=== PATIENT | female | born 1945 | race Caucasian/White ===

== ENCOUNTER 2020-12-31 10:36 | Emergency (ER) | payer MEDICARE, SELFPAY ==
[2020-12-31 10:45] VITALS: BP 162/62; PULSE 68; RESP 18; O2SAT 99
[2020-12-31] MEDS: predniSONE 20 MG TAB 40 MG PO (12:22)
--- NOTE | 2020-12-31 16:16 | W.ED.GENAD ---
Discharge Plan Disposition Patient Disposition: HOME Condition: Stable Discharge Details Clinical Impression: Left buttock pain Primary Care Provider: Unknown,Unknown ED Provider: Maria C Paul Home Meds and New Rx's Prescriptions: New prednisone 20 mg tablet 40 mg PO DAILY Qty: 8 RF: 0 cyclobenzaprine 5 mg tablet 5 mg PO TID PRNQty: 15 RF: 0 Continued prednisone 5 mg Tablet 5 mg PO PRN PRNRF: 0 terbinafine HCl 250 mg Tablet 250 mg PO DAILY RF: 0 lisinopril-hydrochlorothiazide 20-25 mg Tablet 1 tab PO DAILY RF: 0 epinephrine 0.3 mg/0.3 mL Auto-Injector 0.3 mg IM PRN PRNRF: 0 metoprolol tartrate 25 mg Tablet 25 mg PO DAILY RF: 0 Neuriva De-Stress 100-200-10 mg Capsule 1 cap PO DAILY RF: 0 Discharge Instructions Instructions: Prednisone (By mouth), Cyclobenzaprine (By mouth), Sciatica (ED) Additional Instructions: Please return immediately to the emergency department if you develop any new or worsening symptoms, if your condition does not improve as expected, or if you become otherwise concerned. It is extremely important that you call soon as possible to make an appointment to be seen in follow-up for this visit by your primary care doctor. Please do not take your 5 mg prednisone prescribed by your primary care doctor while you are taking the 40 mg prednisone that was prescribed today. Your new prednisone prescription is for 5 days total, then you may resume the 5 mg prednisone as previously prescribed. Discharge Data Discharge Date/Time-TO BE ENTERED AT DEPARTURE: 12/31/20 12:42 Medical Decision Making Yumiko Peralta is a 75-year-old woman with history of hypertension presenting to the emergency department with left buttock pain that radiates into the left leg. On exam patient is very well and nontoxic-appearing. There is no tenderness to palpation of the lumbar back or of the left hip. Mild tenderness palpation of the left buttock that reproduces pain. Left lower extremity is neurovascularly intact. Concern for likely sciatica. Exam/history is not consistent with septic arthritis, acute bony pathology of the lumbar spine/pelvis/hip, DVT, cauda equina syndrome, other acute emergent medical process. Patient is currently taking 5 mg of prednisone at baseline. Plan for steroid burst, Flexeril, outpatient follow-up. Patient is instructed to stop taking her 5 mg prednisone for the next 4 days during steroid burst, and then restart as usual. Patient verbalizes understanding of the plan. I had a lengthy discussion with Patient regarding return to emergency department precautions, home care, and importance of outpatient follow-up. Pt verbalizes understanding of the plan and is amenable. Patient discharged to home with clear plan for outpatient follow-up. All questions were answered. Disposition decision was made weighing the risks and benefits of hospitalization versus outpatient treatment, the risk for further decompensation, and the patient's wishes. Medical Records Medical records reviewed: Yes I reviewed the patient's medical records. HPI General Mode of arrival: ambulatory. Date/Time Provider Initiated Documentation: 12/31/20 11:19. Limitations to Documentation: no limitations. Information obtained by: patient, RN notes reviewed and old records reviewed. HPI Narrative: Yumiko Peralta is a 75-year-old woman with a history of shoulder bursitis presenting to emergency department with left buttock pain. Patient reports that 2 days ago she noticed pain in her left buttock that radiates into her hip and the lateral aspect of her left leg. Patient reports that she has felt somewhat similar pain in her shoulder in the past and has known shoulder bursitis, but otherwise denies history of similar pain. She denies any trauma, injury, or known inciting event. Patient reports that she is able to walk and go about her usual activities. She denies back pain, any other new pain, weakness, numbness, urinary changes, constipation, fever, vomiting, cough, shortness of breath, rash. Has been eating and drinking as usual. Patient reports that she otherwise feels well and in her usual state of health. Related Data Home Medications Medication Instructions Recorded Confirmed Neuriva De-Stress 1 cap PO DAILY 12/31/20 12/31/20 cyclobenzaprine 5 mg PO TID PRN #15 tab 12/31/20 epinephrine 0.3 mg IM PRN PRN 12/31/20 12/31/20 lisinopril-hydrochlorothiazide 1 tab PO DAILY 12/31/20 12/31/20 metoprolol tartrate 25 mg PO DAILY 12/31/20 12/31/20 prednisone 5 mg PO PRN PRN 12/31/20 12/31/20 prednisone 40 mg PO DAILY #8 tab 12/31/20 terbinafine HCl 250 mg PO DAILY 12/31/20 12/31/20 Previous Rx's Medication Instructions Recorded cyclobenzaprine 5 mg PO TID PRN #15 tab 12/31/20 prednisone 40 mg PO DAILY #8 tab 12/31/20 Allergies Allergy/AdvReac Type Severity Reaction Status Date / Time hornet venom Allergy Severe Anaphylaxis Unverified 12/31/20 10:51 adhesive tape AdvReac Skin Rash Unverified 12/31/20 10:51 General Stated Complaint: Nk/Back Pain JOES JUAN: 3 Review of Systems Narrative: Constitutional: denies fevers Eyes: denies eye pain ENT: denies ear pain, dental pain, sore throat Cardiovascular: denies chest pain, edema Respiratory: denies SOB, cough GI: denies abdominal pain, vomiting, diarrhea : denies flank pain MSK: denies back pain, neck pain, denies arthralgias, reports left buttock pain radiating into the lateral left leg Skin: denies rash Neuro: denies headaches, numbness, weakness [facility] Social History Smoking/Tobacco Use Status: Current every day Tobacco Type: cigarettes Smoking risk assessment performed?: Yes Alcohol Intake: current Alcohol Intake frequency: 0-2 drinks per day Alcohol type: wine Drug use: Never Substance use type: does not use Do you feel safe at home: Yes Do you feel safe in your relationship?: Yes Exam Narrative Exam Narrative: Constitutional: well and [id number], pleasant, conversing normally HENT: head atraumatic/normocephalic/normal inspection, mucous membranes moist Eyes: conjunctiva normal, sclera normal, pupils 3mm b/l Neck: no stridor, normal ROM, trachea midline Chest: normal inspection Resp: normal work of breathing, speaking in full sentences Cardio: normal rate, normal rhythm GI: abdomen soft, non-tender, non-distended Back: normal inspection, no rash, no lumbar spinal or paraspinal tenderness to palpation Skin: warm, dry, normal color, no rash Neuro: alert, not altered, grossly non-focal, normal tone, normal sensation left lower extremity, normal gait Ext: left hip with full painless range of motion, left buttock with mild tenderness to palpation that reproduces pain without induration/mass/edema/overlying skin changes, left hip is nontender to anterior and lateral palpation, there is no tenderness to palpation of the left thigh, full painless range of motion of the left knee, no posterior calf tenderness to palpation, no lower extremity edema, DP pulses intact and symmetric Psych: normal mood, normal affect, normal behavior Course Vital Signs Vital signs: Vital Signs Pulse 68 12/31/20 10:45 Respiratory Rate 18 12/31/20 10:45 Blood Pressure 162/62 H 12/31/20 10:45 Pulse Oximetry 99 12/31/20 10:45 Pulse 68 12/31/20 10:45 Respiratory Rate 18 12/31/20 10:45 Respiratory Effort Non-Labored 12/31/20 10:56 Blood Pressure 162/62 H 12/31/20 10:45 Blood Pressure Position Standing 12/31/20 10:45 Pulse Oximetry 99 12/31/20 10:45 Oxygen Delivery Method Room Air 12/31/20 10:45 Oxygen Flow Rate 0 12/31/20 10:45 Pain Level 1 12/31/20 10:45
== END 2020-12-31 12:42 | disposition home or self-care (01) ==
PROVIDERS: Emergency Provider Student in an Organized Health Care Education/Training Program
DX: M79.18 Myalgia, other site
CPT/HCPCS: 99283; J7512

== ENCOUNTER 2022-03-30 13:39 | Emergency (ER) | payer MEDICARE, SELFPAY ==
--- NOTE | 2022-03-30 13:45 | RT.EKG_ITS ---
APPROVED REPORT Exam: Resting ECG Reason for Exam: chest pain Patient Location: E HR:77 bpm ECG Measurements Heart Rate 77 AXIS TN 192 P 70 QRSd 88 QRS 34 QT 379 T 43 QTc 428 Conclusion Sinus rhythm...normal P axis, V-rate 60- 99. Sinus. Normal axis. No STEMI. I have reviewed and interpreted ECG and agree with software generated interpretation.
[2022-03-30 13:46] VITALS: BP 155/65; PULSE 78; RESP 18; TEMP 36.8; O2SAT 97
--- NOTE | 2022-03-30 14:07 | ED.GENADUL_ITS ---
Discharge Plan Disposition Patient Disposition: HOME Condition: Stable Discharge Details Clinical Impression: Chest pain Primary Care Provider: Babar Mclaughlin ED Provider: Dylan Arango Home Meds and New Rx's Prescriptions: New omeprazole 40 mg capsule,delayed release(DR/EC) 40 mg PO DAILY Qty: 30 0RF Continued prednisone 5 mg Tablet 5 mg PO PRN PRN terbinafine HCl 250 mg Tablet 250 mg PO DAILY lisinopril-hydrochlorothiazide 20-25 mg Tablet 1 tab PO DAILY epinephrine 0.3 mg/0.3 mL Auto-Injector 0.3 mg IM PRN PRN metoprolol tartrate 25 mg Tablet 25 mg PO DAILY Neuriva De-Stress 100-200-10 mg Capsule 1 cap PO DAILY escitalopram oxalate [Lexapro] 10 mg tablet 1 tab PO DAILY AM Label Comments: TAKE ONE TABLET BY MOUTH EVERY DAY aspirin 325 mg Capsule 325 mg PO DAILY PRN PRN Discharge Instructions Instructions: Chest Pain (ED) Additional Instructions: We are arranging an outpatient stress test and intracardiac echo. Please call the numbers in the provided forms for scheduling of these tests. While waiting for these test if you have any new or significant worsening of symptoms return immediately to the emergency department for reassessment. You have been prescribed omeprazole to see if this also helps with your symptoms given that the GI cocktail did relieve your discomfort. It will also be important to follow-up with your primary care provider for reassessment. Referrals: Babar Mclaughlin [Primary Care Provider] - 1 week (Please see your primary care provider within the next week for arrangement of follow-up and reassessment) Discharge Data Discharge Date/Time-TO BE ENTERED AT DEPARTURE: 03/30/22 19:27 Medical Decision Making <ELOISA Tovar - Last Filed: 03/30/22 16:24> This is a 77-year-old female with a past medical history of aortic valve replacement, hypertension, diet-controlled diabetes, presenting to the ER for 4- day history of chest tightness, back pain, constant dull headache, fatigue, occasional discomfort in the left side of her neck, and shortness of breath. Clinically she appears well, nontoxic. Plan is to provide a full dose aspirin and initiate a cardiac work-up including a D-dimer, chest x-ray, and a COVID swab. Initial laboratory values reveal nonspecific leukocytosis of 14.10, D-dimer normal at 457, will not pursue emergent CTA. Electrolytes unremarkable, renal function reveals a creatinine of 0.9 with a GFR greater than 60. Troponin less than 50. BNP pending. Urinalysis unremarkable. Alcohol less than 3. Flu, COVID, RSV negative. Patient does tell me that she typically has a slightly high white count at baseline Patient agreeable for delta troponin. Given she continues to have what she describes as chest tightness I will provide nitro. A single sublingual nitro was provided, she reports no change of chest tightness, increased headache, and her blood pressure went into the 80s over 50s. We will hold the nitro. Patient provided with 500 cc fluid bolus as well as 1 g Tylenol. Repeat blood pressure of 120/44. Signout to my colleague ARCADIO Arango performed in exam room for in the setting of the patient and her daughter. Awaiting delta troponin and decision either for admission versus discharge home with close outpatient follow-up. At this time patient is leaning toward discharge home given her is at home and recently discharged from [facility]. This documentation was generated using [employer] dictation system, please disregard any oddities of phrase or misspellings. Medical Records Medical records reviewed: Yes I reviewed the patient's medical records. Imaging Data Radiologic Study: Attestation: I personally reviewed and interpreted this imaging study as follows: Imaging: X-Ray Radiologist's impression: PROCEDURE INFORMATION: Exam: XR Chest Exam date and time: 03/30/2022 2:35 PM Age: 77 years old Clinical indication: Other: Tightness; Prior surgery TECHNIQUE: Imaging protocol: Radiologic exam of the chest. Views: 1 view. COMPARISON: No relevant images were readily available for comparison purposes. FINDINGS: Lungs: Clear lungs. Pleural spaces: No sizable pleural effusion. No pneumothorax. Heart/Mediastinum: Cardiomediastinal silhouette is within normal limits. Bones/joints: No acute displaced fracture or dislocation. Other findings: surgical changes project over the chest. IMPRESSION: No acute cardiopulmonary findings. Lab Data Lab results reviewed: Yes I reviewed the patient's lab results. Labs: Laboratory Tests Range/Units 03/30/22 03/30/22 03/30/22 14:07 14:07 14:30 WBC (4.4-10.8) 10^3/uL RBC (3.93-5.22) 10^6/uL Hgb (11.2-15.7) g/dL Hct (36.0-46.0) % MCV (80-95) fL MCH (27.0-33.0) pg MCHC (32.0-36.0) % RDW (11.7-14.6) % Plt Count (130-400) 10^3/uL MPV (8.0-11.0) fL Immature Gran % Neutrophils % Lymphocytes % Monocytes % Eosinophils % Basophils % Nucleated RBC % (0.0-0.3) % Absolute Neutrophils (1.2-6.7) 10^3/uL Absolute Lymphocytes (1.2-3.4) 10^3/uL Absolute Monocytes (0.1-0.8) 10^3/uL Absolute Eosinophils (0.0-0.7) 10^3/uL Absolute Basophils (0.0-0.2) 10^3/uL PT (9.3-11.0) sec INR (0.9-1.1) APTT (21.0-27.5) sec D-Dimer (<500) ng/mlFEU Sodium (136-145) mmol/L 138 Potassium (3.5-5.1) mmol/L 3.8 Chloride (98-107) mmol/L 102 Carbon Dioxide (21.0-32.0) mmol/L 27.4 Anion Gap (3-11) mmol/L 8.6 BUN (7-18) mg/dL 29 H Creatinine (0.55-1.02) mg/dL 0.9 Estimated GFR/1.73 m2 (mL/min/1.73m2) >= 60.00 Glucose (74-106) mg/dL 120 H Calcium (8.5-10.1) mg/dL 9.6 Magnesium (1.8-2.4) mg/dL 1.7 L Total Bilirubin (0.2-1.0) mg/dL 0.4 AST (15-37) U/L 36 ALT (14-59) U/L 55 Alkaline Phosphatase (46-116) U/L 67 Troponin I (<or=60) ng/L < 50 NT-Pro-B Natriuret Pep (<300) pg/mL Total Protein (6.4-8.2) g/dL 7.7 Albumin (3.4-5.0) g/dL 4.1 Urine Color (Yellow) Yellow Urine Clarity (Clear) Clear Urine pH (5-8) 5.5 Ur Specific Yarnell (1.005-1.025) 1.010 Urine Protein (Negative) mg/dL Negative Urine Ketones (Negative) mg/dL Negative Urine Blood (Negative) Negative Urine Nitrite (Negative) Negative Urine Bilirubin (Negative) Negative Urine Urobilinogen (Up TO 0.2) EU/dL 0.2 Ur Leukocyte Esterase (Negative) Negative Urine Glucose (Negative) mg/dL Negative Ethyl Alcohol (<10) mg/dL < 3.0 COVID-19 Source Nasopharynx SARS-CoV-2 (PCR) (Negative) Negative Influenza Type A (PCR) (Negative) Negative Influenza Type B (PCR) (Negative) Negative RSV (PCR) (Negative) Negative Range/Units 03/30/22 03/30/22 03/30/22 14:30 14:30 14:30 WBC (4.4-10.8) 10^3/uL 14.10 H RBC (3.93-5.22) 10^6/uL 4.57 Hgb (11.2-15.7) g/dL 13.5 Hct (36.0-46.0) % 41.2 MCV (80-95) fL 90 MCH (27.0-33.0) pg 29.5 MCHC (32.0-36.0) % 32.8 RDW (11.7-14.6) % 12.7 Plt Count (130-400) 10^3/uL 207 MPV (8.0-11.0) fL 10.9 Immature Gran % 0.3 Neutrophils % 75.0 Lymphocytes % 18.0 Monocytes % 5.2 Eosinophils % 1.1 Basophils % 0.4 Nucleated RBC % (0.0-0.3) % 0.0 Absolute Neutrophils (1.2-6.7) 10^3/uL 10.58 H Absolute Lymphocytes (1.2-3.4) 10^3/uL 2.54 Absolute Monocytes (0.1-0.8) 10^3/uL 0.73 Absolute Eosinophils (0.0-0.7) 10^3/uL 0.16 Absolute Basophils (0.0-0.2) 10^3/uL 0.06 PT (9.3-11.0) sec 10.4 INR (0.9-1.1) 1.0 APTT (21.0-27.5) sec 23.3 D-Dimer (<500) ng/mlFEU 457 Sodium (136-145) mmol/L Potassium (3.5-5.1) mmol/L Chloride (98-107) mmol/L Carbon Dioxide (21.0-32.0) mmol/L Anion Gap (3-11) mmol/L BUN (7-18) mg/dL Creatinine (0.55-1.02) mg/dL Estimated GFR/1.73 m2 (mL/min/1.73m2) Glucose (74-106) mg/dL Calcium (8.5-10.1) mg/dL Magnesium (1.8-2.4) mg/dL Total Bilirubin (0.2-1.0) mg/dL AST (15-37) U/L ALT (14-59) U/L Alkaline Phosphatase (46-116) U/L Troponin I (<or=60) ng/L NT-Pro-B Natriuret Pep (<300) pg/mL 173 Total Protein (6.4-8.2) g/dL Albumin (3.4-5.0) g/dL Urine Color (Yellow) Urine Clarity (Clear) Urine pH (5-8) Ur Specific Yarnell (1.005-1.025) Urine Protein (Negative) mg/dL Urine Ketones (Negative) mg/dL Urine Blood (Negative) Urine Nitrite (Negative) Urine Bilirubin (Negative) Urine Urobilinogen (Up TO 0.2) EU/dL Ur Leukocyte Esterase (Negative) Urine Glucose (Negative) mg/dL Ethyl Alcohol (<10) mg/dL COVID-19 Source SARS-CoV-2 (PCR) (Negative) Influenza Type A (PCR) (Negative) Influenza Type B (PCR) (Negative) RSV (PCR) (Negative) Range/Units 03/30/22 14:34 WBC (4.4-10.8) 10^3/uL RBC (3.93-5.22) 10^6/uL Hgb (11.2-15.7) g/dL Hct (36.0-46.0) % MCV (80-95) fL MCH (27.0-33.0) pg MCHC (32.0-36.0) % RDW (11.7-14.6) % Plt Count (130-400) 10^3/uL MPV (8.0-11.0) fL Immature Gran % Neutrophils % Lymphocytes % Monocytes % Eosinophils % Basophils % Nucleated RBC % (0.0-0.3) % Absolute Neutrophils (1.2-6.7) 10^3/uL Absolute Lymphocytes (1.2-3.4) 10^3/uL Absolute Monocytes (0.1-0.8) 10^3/uL Absolute Eosinophils (0.0-0.7) 10^3/uL Absolute Basophils (0.0-0.2) 10^3/uL PT (9.3-11.0) sec INR (0.9-1.1) APTT (21.0-27.5) sec D-Dimer (<500) ng/mlFEU Sodium (136-145) mmol/L Potassium (3.5-5.1) mmol/L Chloride (98-107) mmol/L Carbon Dioxide (21.0-32.0) mmol/L Anion Gap (3-11) mmol/L BUN (7-18) mg/dL Creatinine (0.55-1.02) mg/dL Estimated GFR/1.73 m2 (mL/min/1.73m2) Glucose (74-106) mg/dL Calcium (8.5-10.1) mg/dL Magnesium (1.8-2.4) mg/dL Total Bilirubin (0.2-1.0) mg/dL AST (15-37) U/L ALT (14-59) U/L Alkaline Phosphatase (46-116) U/L Troponin I (<or=60) ng/L NT-Pro-B Natriuret Pep (<300) pg/mL Total Protein (6.4-8.2) g/dL Albumin (3.4-5.0) g/dL Urine Color (Yellow) Urine Clarity (Clear) Urine pH (5-8) Ur Specific Yarnell (1.005-1.025) Urine Protein (Negative) mg/dL Urine Ketones (Negative) mg/dL Urine Blood (Negative) Urine Nitrite (Negative) Urine Bilirubin (Negative) Urine Urobilinogen (Up TO 0.2) EU/dL Ur Leukocyte Esterase (Negative) Urine Glucose (Negative) mg/dL Ethyl Alcohol (<10) mg/dL COVID-19 Source Cancelled SARS-CoV-2 (PCR) (Negative) Cancelled Influenza Type A (PCR) (Negative) Cancelled Influenza Type B (PCR) (Negative) Cancelled RSV (PCR) (Negative) Cancelled ECG Data Attestation: I personally reviewed and interpreted this ECG (s) as follows: Interpretation: Please see official report by Dr. Young. Sinus rhythm, ventricular rate of 77, no STEMI <Dylan Arango NP - Last Filed: 03/30/22 21:50> This is a 77-year-old female with a past medical history of aortic valve replacement, hypertension, diet-controlled diabetes, presenting to the ER for 4- day history of chest tightness, back pain, constant dull headache, fatigue, occasional discomfort in the left side of her neck, and shortness of breath. Clinically she appears well, nontoxic. Plan is to provide a full dose aspirin and initiate a cardiac work-up including a D-dimer, chest x-ray, and a COVID swab. Initial laboratory values reveal nonspecific leukocytosis of 14.10, D-dimer normal at 457, will not pursue emergent CTA. Electrolytes unremarkable, renal function reveals a creatinine of 0.9 with a GFR greater than 60. Troponin less than 50. BNP pending. Urinalysis unremarkable. Alcohol less than 3. Flu, COVID, RSV negative. Patient does tell me that she typically has a slightly high white count at baseline Patient agreeable for delta troponin. Given she continues to have what she describes as chest tightness I will provide nitro. A single sublingual nitro was provided, she reports no change of chest tightness, increased headache, and her blood pressure went into the 80s over 50s. We will hold the nitro. Patient provided with 500 cc fluid bolus as well as 1 g Tylenol. Repeat blood pressure of 120/44. Signout to my colleague ARCADIO Arango performed in exam room for in the setting of the patient and her daughter. Awaiting delta troponin and decision either for admission versus discharge home with close outpatient follow-up. At this time patient is leaning toward discharge home given her is at home and recently discharged from [facility]. This documentation was generated using [employer] system, please disregard any oddities of phrase or misspellings. Please see initial note from Jose AMIN in regards to HPI, review of systems, medical history, and initial work-up. Patient was stable at time of signout and pending second troponin. Second troponin was negative and patient was reassessed. At time of reassessment patient reports improving headache, no radiation of pain, but continued chest tightness. Patient does have a heart score of 4. After discussion of risk versus benefit of continued outpatient evaluation versus inpatient observation with attempt to obtain stress test and echo patient and daughter stated request of observation admission if bed is available at our facility otherwise stable for outpatient continued work-up. We will contact hospitalist for discussion of case. Contacted hospitalist and discussed case. He stated he would come down and evaluate patient but recommended GI cocktail pending in person consultation. Dr. Bar came down and evaluated patient and at that time the GI cocktail improved patient's symptoms. I am still concerned due to patient's history but given that she is now pain-free and having improvement of symptoms with negative cardiac work-up patient is requesting discharge with outpatient stress test and further evaluation. Given patient's high heart score I will order this from the emergency department standpoint as I do feel that getting this performed sooner than later is important. Will prescribe omeprazole to see if this helps with patient's symptoms. After discussion of diagnosis and plan of care patient has no further needs, questions, or concerns and states clear understanding to return to the emergency department for any worsening symptoms. This documentation was generated using [employer] system, please disregard any oddities of phrase or misspellings. HPI <ELOISA Tovar - Last Filed: 03/30/22 16:24> General Mode of arrival: ambulatory . Date/Time Provider Initiated Documentation: 03/30/22 13:53 . Limitations to Documentation: no limitations . Information obtained by: patient . HPI Narrative: This is a 77-year-old female, past medical history of hypertension, diet- controlled diabetes, aortic valve replacement in 2017, presenting to the ER reporting 4-day history of chest tightness, mild shortness of breath, back pain which is upper and mid in nature, occasionally left neck pain, fatigue, and a dull constant headache. She states that her was recently admitted to [facility] for an ischemic leg and while he is doing well this is certainly increased her overall stress. She denies recent illness or trauma, fever, chills, visual changes, cough, abdominal pain, nausea, vomiting, focal weakness, numbness, tingling, weakness, pain or swelling in her extremities, change of bowel or bladder function. She did take a full dose aspirin yesterday but no aspirin today. Patient states that she has not had a stress test or echocardiogram since her open heart surgery in 2017. She is vaccinated against COVID. Related Data Home Medications Medication Instructions Recorded Confirmed coffee 100 mg theanine 200 mg 1 cap PO DAILY 12/31/20 03/30/22 superoxide dismutase 10 mg capsule (Neuriva De-Stress) epinephrine 0.3 mg/0.3 mL 0.3 mg IM PRN PRN 12/31/20 03/30/22 injection, auto-injector lisinopril 20 1 tab PO DAILY 12/31/20 03/30/22 mg-hydrochlorothiazide 25 mg tablet metoprolol tartrate 25 mg tablet 25 mg PO DAILY 12/31/20 12/31/20 prednisone 5 mg tablet 5 mg PO PRN PRN 12/31/20 03/30/22 terbinafine HCl 250 mg tablet 250 mg PO DAILY 12/31/20 12/31/20 aspirin 325 mg capsule 325 mg PO DAILY PRN PRN 03/30/22 03/30/22 escitalopram oxalate 10 mg tablet 1 tab PO DAILY AM 03/30/22 03/30/22 (Lexapro) omeprazole 40 mg capsule,delayed 40 mg PO DAILY #30 caps 03/30/22 release Previous Rx's Medication Instructions Recorded omeprazole 40 mg capsule,delayed 40 mg PO DAILY #30 caps 03/30/22 release Allergies Allergy/AdvReac Type Severity Reaction Status Date / Time hornet venom Allergy Severe Anaphylaxis Unverified 03/30/22 13:52 adhesive tape AdvReac Skin Rash Unverified 03/30/22 13:52 General Stated Complaint: Chest Pain JOSE JUAN: 2 Review of Systems <ELOISA Tovar - Last Filed: 03/30/22 16:24> Constitutional Constitutional: Denies chills, Reports fatigue, Denies fever(s), Reports headache(s) and Reports weakness (Generalized) Eyes Eyes: Denies change in vision ENT Ears, Nose, Mouth, and Throat: Reports headache(s) and Reports neck pain Cardiovascular Cardiovascular: Reports chest pain (Tightness) and Reports dyspnea Respiratory Respiratory: Denies cough and Reports dyspnea Gastrointestinal Gastrointestinal: Denies abdominal pain, Denies nausea and Denies vomiting Genitourinary Genitourinary: Denies dysuria Musculoskeletal Musculoskeletal: Reports back pain and Reports neck pain Integumentary/Breasts Skin/Breast: Denies rash Neurologic Neurologic: Reports headache(s) and Reports weakness (Generalized) Endocrine Endocrine: Reports fatigue Hematologic/Lymphatic Hematologic/Lymphatic: Denies easy bleeding and Denies easy bruising PFSH <ELOISA Tovar - Last Filed: 03/30/22 16:24> All Active Problems (Updated 03/30/22 @ 18:53 by Dylan Arango NP) Left buttock pain (Acute) Chest pain (Acute) Social History Smoking/Tobacco Use Status: Current every day Tobacco Type: cigarettes Smoking risk assessment performed?: Yes Alcohol Intake: current Alcohol Intake frequency: 0-2 drinks per day Alcohol type: wine Drug use: Never Substance use type: does not use Do you feel safe at home: Yes Do you feel safe in your relationship?: Yes Exam <ELOISA Tovar - Last Filed: 03/30/22 16:24> Const General: cooperative, healthy appearing, comfortable and no acute distress Orientation: alert, awake and oriented x3 HENMT Head: normal to inspection, normocephalic and atraumatic Face and sinus: normal facial exam Mouth: moist mucous membranes Eyes General: appearance normal, both eyes and all related structures Conjunctivae: conjunctivae normal Neck Neck: normal visual inspection, full ROM, no meningeal signs, trachea midline, supple and nontender Resp Effort & Inspection: normal respiratory effort and able to speak in complete sentences Auscultation: clear to auscultation bilaterally Cardio Rate: regular rate Rhythm: regular rhythm GI Palpation: soft and nontender Back/Spine/Pelvis Back: No back tenderness Skin General skin exam: no rashes or lesions noted Neuro General: patient alert, patient awake, moves all extremities and no focal motor deficits Cognition: normal cognition Speech: speech normal Gait: normal gait Motor: muscle tone normal throughout Sensory Exam: no sensory deficits noted Extrem General: normal to inspection, full ROM, capillary refill normal, no pedal edema and no calf tenderness Psych Appearance: grossly normal Mental Status: mental status grossly normal Course <ELOISA Tovar - Last Filed: 03/30/22 16:24> Vital Signs Vital signs: Vital Signs Temperature 36.8 C 03/30/22 13:46 Pulse 78 03/30/22 13:46 Respiratory Rate 18 03/30/22 13:46 Blood Pressure 155/65 H 03/30/22 13:46 Pulse Oximetry 97 03/30/22 13:46 Temperature 36.8 C 03/30/22 13:46 Temperature Source Temporal Artery Scan 03/30/22 13:46 Pulse 78 03/30/22 13:46 Respiratory Rate 18 03/30/22 13:46 Blood Pressure 155/65 H 03/30/22 13:46 Blood Pressure Position Sitting 03/30/22 13:46 Pulse Oximetry 97 03/30/22 13:46 Oxygen Delivery Method Room Air 03/30/22 13:46 Oxygen Flow Rate 0 03/30/22 13:46 Sign Out <ELOISA Tovar - Last Filed: 03/30/22 16:24> Sign Out Data: Sign Out Comment: Chest tightness, back pain, headache, fatigue, left neck pain x4 days. Work-up thus far reveals mild nonspecific leukocytosis otherwise unremarkable. Plan for delta troponin and patient and family are currently discussing admission versus discharge home with close outpatient Last updated by Jose Marte PA at 03/30/22 16:25
[2022-03-30 14:22] LABS: Bilirubin Negative (Negative); Blood Negative (Negative); Clarity Clear (Clear); Glucose Negative (Negative); Ketones Negative (Negative); Leukocyte Esterase Negative (Negative); Nitrite Negative (Negative); Urobilinogen 0.2 EU/dL (Up TO 0.2); pH 5.5 (5-8)
--- NOTE | 2022-03-30 14:30 | DI.RAD_ITS ---
Exam(s) XR PORTABLE CHEST AP EXAM: XR PORTABLE CHEST AP CLINICAL HISTORY: tightness. TECHNIQUE: 2D digital imaging was performed. COMPARISON: No exams were available for comparison FINDINGS: Single AP portable view. Sternotomy wires and prosthetic aortic valve. Heart size is upper normal. The mediastinum is not widened. Lungs are clear. No infiltrates nor obvious pleural effusions. IMPRESSION: No acute pulmonary findings on this single AP portable view of the chest. Sternotomy wires and prosthetic aortic valve. No pulmonary edema. DATA REPOSITORY: RADIATION DOSE DELIVERED: All CT scans at this facility use at least one of these dose optimization techniques: automated exposure control; mA and/or kV adjustment per patient size (includes targeted e xams where dose is matched to clinical indication); or iterative reconstruction.
[2022-03-30 14:33] LABS: Abs Immature Grans 0.04 10^3/uL (0.0-0.06); Absolute Basophil Count 0.06 10^3/uL (0.0-0.2); Absolute Lymphocyte Count 2.54 10^3/uL (1.2-3.4); Basophils % 0.4; Eosinophils % 1.1; HCT 41.2 % (36.0-46.0); HGB 13.5 g/dL (11.2-15.7); Immature Grans % 0.3; MCH 29.5 pg (27.0-33.0); MCHC 32.8 % (32.0-36.0); MCV 90 fL (80-95); MPV 10.9 fL (8.0-11.0); Monocytes % 5.2; Platelet Count 207 10^3/uL (130-400); RBC 4.57 10^6/uL (3.93-5.22); RDW 12.7 % (11.7-14.6); RDW-SD 42.1 fL
[2022-03-30 14:41] LABS: Absolute Eosinophil Count 0.16 10^3/uL (0.0-0.7); Absolute Monocyte Count 0.73 10^3/uL (0.1-0.8); Absolute Neutrophil Count 10.58 10^3/uL (1.2-6.7)
[2022-03-30 14:48] LABS: PTT Activated 23.3 sec (21.0-27.5); Prothrombin Time 10.4 sec (9.3-11.0)
[2022-03-30 14:52] LABS: ALT 55 U/L (14-59); AST 36 U/L (15-37); Albumin 4.1 g/dL (3.4-5.0); Alkaline Phosphatase 67 U/L (46-116); Anion Gap 8.6 mmol/L (3-11); BUN 29 mg/dL (7-18); Bilirubin, Total 0.4 mg/dL (0.2-1.0); CO2 27.4 mmol/L (21.0-32.0); CREATININE 0.9 mg/dL (0.55-1.02); Calcium 9.6 mg/dL (8.5-10.1); Chloride 102 mmol/L (98-107); Glucose 120 mg/dL (74-106); Magnesium 1.7 mg/dL (1.8-2.4); Potassium 3.8 mmol/L (3.5-5.1); Sodium 138 mmol/L (136-145); Total Protein 7.7 g/dL (6.4-8.2); Troponin I < 50 ng/L (<or=60)
[2022-03-30] MEDS: Aspirin 81 MG CHEW 324 MG CH (14:54)
[2022-03-30 15:05] LABS: COVID-19 PCR Negative (Negative); Influenza A PCR Negative (Negative); Influenza B PCR Negative (Negative); RSV PCR Negative (Negative)
[2022-03-30 15:10] LABS: ETHANOL BLOOD < 3.0 mg/dL (<10)
--- NOTE | 2022-03-30 15:14 | DI.VRAD_ITS ---
PROCEDURE INFORMATION: Exam: XR Chest Exam date and time: 03/30/2022 2:35 PM Age: 77 years old Clinical indication: Other: Tightness; Prior surgery TECHNIQUE: Imaging protocol: Radiologic exam of the chest. Views: 1 view. COMPARISON: No relevant images were readily available for comparison purposes. FINDINGS: Lungs: Clear lungs. Pleural spaces: No sizable pleural effusion. No pneumothorax. Heart/Mediastinum: Cardiomediastinal silhouette is within normal limits. Bones/joints: No acute displaced fracture or dislocation. Other findings: surgical changes project over the chest. IMPRESSION: No acute cardiopulmonary findings. Dictated and Authenticated by: Sher Campoverde MD. Ordering:JASWINDER Garcia MD
[2022-03-30 15:22] LABS: Source Nasopharynx
[2022-03-30 15:28] LABS: D-Dimer 457 ng/mlFEU (<500)
[2022-03-30] MEDS: Normal Saline 500 ML IV (15:30)
[2022-03-30 15:32] VITALS: BP 115/60; PULSE 72; RESP 16; O2SAT 96
[2022-03-30 15:37] VITALS: BP 80/50; PULSE 75
[2022-03-30 15:39] VITALS: BP 86/45; PULSE 74; O2SAT 96
[2022-03-30 15:58] LABS: NT-proBNP 173 pg/mL (<300)
[2022-03-30] MEDS: Acetaminophen 500 MG TAB (16:01)
[2022-03-30 16:04] VITALS: BP 120/44; PULSE 68; RESP 15; O2SAT 96
[2022-03-30 17:32] LABS: Troponin I < 50 ng/L (<or=60)
--- NOTE | 2022-03-30 18:47 | W.MEDCONSULT ---
Date of service: 03/30/22 Time of Service: 18:47 Assessment and Plan Assessment and plan (1) Chest pain: Status: Acute Assessment and plan: CP. Very low likelihood of coronary insufficiency given duration, negative w/u, negative response to NTG and positive response to AAs. I think this is likely GI in origin, or stress related. I do not feel that admission is indicated though I think it not unreasonable to arrange for outpatient stress test out of abundance of caution. In meantime would advise trial PPI. History of Present Illness History of Present Illness Chief Complaint: CP Narrative: 77 female with h/o HTN, s/p bovine AVR 2017 -- here with 10-14 days of continuous chest tightness, with occasional involvement of left side of neck,or left shoulder or back. No SOB, nausea or diaphoresis. No relation to exertion or position. Here in ER initial work up of note for normal EKG (with CP), negative trop x 2, negative CXR, white count of 14 (states she always has a mild leukocytosis, though I have no priors here). No response to NTG (except a DOVE). I was asked to evaluate for possible admission. A request for GI cocktail was made and this was being given upon my arrival. Patient wonders whether her symptoms could be stress related (actually daughter broaches the subject). Patient allows that she has indeed been under a good deal of stress due to 's recent illness. At this point in interview patient states that the chest tightness has abated. Review of Systems Narrative: per HPI PFSH All Active Problems (Updated 03/30/22 @ 18:53 by Dylan Arango NP) Left buttock pain (Acute) Chest pain (Acute) Social History Smoking/Tobacco Use Status: Current every day Tobacco Type: cigarettes Smoking risk assessment performed?: Yes Alcohol Intake: current Alcohol Intake frequency: 0-2 drinks per day Alcohol type: wine Drug use: Never Substance use type: does not use Do you feel safe at home: Yes Do you feel safe in your relationship?: Yes Exam Narrative Exam Narrative: 120/44, 68, 36.8, 15, 96% RA. HEENT atraumatic; neck supple w/o JVD; lungs clear; heart RRR w/o MRG; abdomen soft and NT; extremities w/o edema, pulses 2+/=; neuro Ox3, lucid, moves all 4s Results Last Vital Signs Temp 36.8 C 03/30/22 13:46 Pulse 68 03/30/22 16:04 Resp 15 03/30/22 16:04 BP 120/44 L 03/30/22 16:04 Pulse Ox 96 03/30/22 16:04 Labs Result diagrams: 03/30/22 14:30 03/30/22 14:30 Labs: Laboratory Results - last 24 hr 03/30/22 03/30/22 03/30/22 14:07 14:07 14:30 WBC RBC Hgb Hct MCV MCH MCHC RDW Plt Count MPV Immature Gran % Neutrophils % Lymphocytes % Monocytes % Eosinophils % Basophils % Nucleated RBC % Absolute Neutrophils Absolute Lymphocytes Absolute Monocytes Absolute Eosinophils Absolute Basophils PT INR APTT D-Dimer Sodium 138 Potassium 3.8 Chloride 102 Carbon Dioxide 27.4 Anion Gap 8.6 BUN 29 H Creatinine 0.9 Estimated GFR/1.73 m2 >= 60.00 Glucose 120 H Calcium 9.6 Magnesium 1.7 L Total Bilirubin 0.4 AST 36 ALT 55 Alkaline Phosphatase 67 Troponin I < 50 NT-Pro-B Natriuret Pep Total Protein 7.7 Albumin 4.1 Urine Color Yellow Urine Clarity Clear Urine pH 5.5 Ur Specific [place] 1.010 Urine Protein Negative Urine Ketones Negative Urine Blood Negative Urine Nitrite Negative Urine Bilirubin Negative Urine Urobilinogen 0.2 Ur Leukocyte Esterase Negative Urine Glucose Negative Ethyl Alcohol < 3.0 COVID-19 Source Nasopharynx SARS-CoV-2 (PCR) Negative Influenza Type A (PCR) Negative Influenza Type B (PCR) Negative RSV (PCR) Negative 03/30/22 03/30/22 03/30/22 14:30 14:30 14:30 WBC 14.10 H RBC 4.57 Hgb 13.5 Hct 41.2 MCV 90 MCH 29.5 MCHC 32.8 RDW 12.7 Plt Count 207 MPV 10.9 Immature Gran % 0.3 Neutrophils % 75.0 Lymphocytes % 18.0 Monocytes % 5.2 Eosinophils % 1.1 Basophils % 0.4 Nucleated RBC % 0.0 Absolute Neutrophils 10.58 H Absolute Lymphocytes 2.54 Absolute Monocytes 0.73 Absolute Eosinophils 0.16 Absolute Basophils 0.06 PT 10.4 INR 1.0 APTT 23.3 D-Dimer 457 Sodium Potassium Chloride Carbon Dioxide Anion Gap BUN Creatinine Estimated GFR/1.73 m2 Glucose Calcium Magnesium Total Bilirubin AST ALT Alkaline Phosphatase Troponin I NT-Pro-B Natriuret Pep 173 Total Protein Albumin Urine Color Urine Clarity Urine pH Ur Specific [place] Urine Protein Urine Ketones Urine Blood Urine Nitrite Urine Bilirubin Urine Urobilinogen Ur Leukocyte Esterase Urine Glucose Ethyl Alcohol COVID-19 Source SARS-CoV-2 (PCR) Influenza Type A (PCR) Influenza Type B (PCR) RSV (PCR) 03/30/22 03/30/22 14:34 17:10 WBC RBC Hgb Hct MCV MCH MCHC RDW Plt Count MPV Immature Gran % Neutrophils % Lymphocytes % Monocytes % Eosinophils % Basophils % Nucleated RBC % Absolute Neutrophils Absolute Lymphocytes Absolute Monocytes Absolute Eosinophils Absolute Basophils PT INR APTT D-Dimer Sodium Potassium Chloride Carbon Dioxide Anion Gap BUN Creatinine Estimated GFR/1.73 m2 Glucose Calcium Magnesium Total Bilirubin AST ALT Alkaline Phosphatase Troponin I < 50 NT-Pro-B Natriuret Pep Total Protein Albumin Urine Color Urine Clarity Urine pH Ur Specific [place] Urine Protein Urine Ketones Urine Blood Urine Nitrite Urine Bilirubin Urine Urobilinogen Ur Leukocyte Esterase Urine Glucose Ethyl Alcohol COVID-19 Source Cancelled SARS-CoV-2 (PCR) Cancelled Influenza Type A (PCR) Cancelled Influenza Type B (PCR) Cancelled RSV (PCR) Cancelled
--- NOTE | 2022-03-30 19:36 | NUR.NOTE ---
Referral to Care Management for PCP f/u Dr Babar Mclaughlin in a week for Chest Pain at [facility] [phone], Echo Cardiogram Req and Regular Tread Mill Stress Test req faxed to DI. Nursing Note:
== END 2022-03-30 19:27 | disposition home or self-care (01) ==
PROVIDERS: Physician Assistant; Emergency Provider Nurse Practitioner Family; PCP Family Medicine
DX: R07.9 Chest pain, unspecified (principal); Z20.822 Contact with and (suspected) exposure to COVID-19; Z95.4 Presence of other heart-valve replacement; R06.02 Shortness of breath; Z79.899 Other long term (current) drug therapy; R07.89 Other chest pain; I10 Essential (primary) hypertension
CPT/HCPCS: 36415; 80053; 87637; 93005; 96360; 99283; 99284; 71045; 80320; 81003; 83735; 83880; 84484; 85025; 85379; 85610; 85730; 93010; 99238

== ENCOUNTER → 2022-04-03 13:49 | Outpatient (CLI) | payer MEDICARE, SELFPAY | PROVIDERS: PCP Family Medicine; Visit Provider Nurse Practitioner Family ==

== ENCOUNTER → 2022-04-21 01:30 | Outpatient (CLI) | payer MEDICARE, SELFPAY ==
--- NOTE | 2022-04-21 09:15 | DI.NM_ITS ---
APPROVED REPORT Exam: Pharmacologic Patient Location: Out-Patient Room/Bed: Stress Nurse: Stefania Riggs RN Ordering Provider:ADRIEL HUANG, Contact Number: [phone] BMI: 31.27 Baseline Rhythm: Sinus Rhythm Comment: 1st degree AV block Indications: Chest pain, hx coronary/valvular heart disease Medical History Medical History: CVD, hypertension, diabetes, smoker (current) Cardiac Medications: Metoprolol tartrate, lisinopril-HCTZ, aspirin, omeprazole Allergies: Hornets, adhesive Cardiac Risk Factors: Hypertension, diabetes, smoker (current) Previous Cardiac Procedures: AVR Pretest Chest Pain Characteristics: None Exercise History: Sedentary Physical Disabilities: None Lung Sounds: Clear to auscultation Heart Sounds: Regular Stress Test Details Test: Exercise stress converted to pharmacologic stress due to failure to obtain a diagnostic stress test. Reason for pharmacologic stress test: changed from exercise stress test due to inability to reach t arget heart rate. Nuclear Acquisition: Rest Tc-99m/Stress Tc-99m 1 day Rest Isotope: Tc-99m Sestamibi. Dose: 9.5 Date: 04/21/2022 Injection Time: 0900 Stress Isotope: Tc-99m Sestamibi. Dose: 30.0 Date: 04/21/2022 Injection Time: 1145 HR Resting HR Supine: 59 bpm Max Heart Rate (APMHR): 142.269378 bpm Resting HR Standin bpm Target HR (85% APMHR): 120.530831 bpm Max HR Achieved: 114 bpm % of APMHR: 80.28 Recovery HR: 81 bpm Comment: Metoprolol tartrate held for 24 hrs per pt BP Resting BP Supine: 146/80 mmHg Resting BP Standin/56 mmHg Max BP: 160/54 mmHg Recovery BP: 146/52 mmHg BP response to stress: Normal blood pressure response to stress. ECG Resting ECG: Sinus rhythm, 1st degree AV block Ectopy: None Stress ECG: Sinus tachycardia, 1st degree AV block ST Change: Nondiagnostic low heart rate, No significant ST segment changes noted Arrhythmia: Rare PAC Recovery ECG: Sinus rhythm, 1st degree AV block Recovery ST Change: Nondiagnostic low heart rate, No significant ST segment changes noted Clinical Stress Symptoms: Dyspnea, chest tightness Exercise duration: 2 min40 sec Highest Stage Reached: Stage 1: 1.7 mph at 10% grade. Exercise capacity: 4.64 METs Angina Score: Non-Limiting Rate Pressure Product: [id number] Stress ECG Conclusion 1. The resting electrocardiogram showed first-degree AV block 2. Patient underwent testing using combination of low-level exercise and pharmacologic stress with re gadenoson 3. Peak heart rate achieved was 80% of predicted for age 4. The electrocardiographic portion of the test was nondiagnostic due to inadequate heart rate 5. See MPI report Stress Test Summary STAGE Time (mins) Speed (mph) Grade (%) HR BP SpO2 SYMPTOMS METS Supine 59 148/60 Standing 73 142/56 96% 1 3 1.7 10 112 160/54 96% 4.5 1 min post Lexiscan injection 110 158/54 96% Chest tightness 3/10 3 min post Lexiscan injection 97 142/50 98% DOVE 8/10 6 min post Lexiscan injection 81 146/52 97% Chest tightness resolved, DOVE improving Exercise stress converted to pharmacologic stress after 2:40 in first stage of Mason protocol due to inability to reach target heart rate. Pt ambulated at 0.8mph and 0% grade during Lexiscan administrat ion. Tolerated testing well. Encouraged pt to have caffeine, food, and drink in cafeteria to aid w/ H A symptoms prior to next set of images; pt receptive. MPI Conclusion Myocardial perfusion is normal without evidence of ischemia or prior infarction EF is 66%, normal wall motion Radiologist Interpretation Radiologist agrees with [employer]'s Interpretation. Radiologist Interpretation by: Jose R Escobedo MD Interpretation Date/Time: 04/23/2022 08:30:07
[2022-04-21] MEDS: Regadenoson 0.4 MG/5 ML SYR IVP (12:01)
== END ==
PROVIDERS: PCP Family Medicine; Visit Provider Family Medicine
DX: R07.9 Chest pain, unspecified (principal)
CPT/HCPCS: 78452; 93016; 93018; 93017; J2785

== ENCOUNTER → 2022-04-22 02:31 | Outpatient (CLI) | payer MEDICARE, SELFPAY ==
--- NOTE | 2022-04-22 08:30 | DI.US_ITS ---
APPROVED REPORT EXAM: Comprehensive 2D, Doppler, and color-flow Echocardiogram Patient Location: Out-Patient [address] Deputy Clerk: Diana Soler RDCS (AE) Indications: Bioprosthetic aortic valve, Chest tightness Other Information Study Quality: Adequate Conclusion Normal left ventricular wall thickness and chamber size. Estimated ejection fraction is 55 to 60%. Wall motion is normal Normal right ventricular size and systolic function Both atria are normal in size There is a bioprosthetic aortic valve with normal function. Mean gradient is 8 mmHg there is no aort ic regurgitation Moderate mitral annular calcification with trace to mild regurgitation Normal tricuspid valve with trace regurgitation. Estimated right ventricular systolic pressure is 16 mmHg Wall motion Left Ventricle The left ventricle is normal size. The left ventricular systolic function is normal. The left ventric ular ejection fraction is within the normal range. There is normal left ventricular wall thickness. T here is normal LV segmental wall motion. There is no ventricular septal defect visualized. LVEF is 55 -60%. Right Ventricle The right ventricle is normal size. The right ventricular systolic function is normal. The RVSP is 16 .3_ mmHg. Atria The left atrium size is normal. The right atrium size is normal. The interatrial septum is intact wit h no evidence for an atrial septal defect. Aortic Valve Peak gradient is 14, mean 8 mmHg No aortic regurgitation is present. Bioprosthetic aortic valve is pr esent. Mitral Valve Moderate mitral annular calcification. No evidence of mitral valve stenosis. Trace to mild mitral reg urgitation. Tricuspid Valve The tricuspid valve is normal in structure. There is no tricuspid valve stenosis. Trace tricuspid reg urgitation. Pulmonic Valve The pulmonary valve is normal in structure. There is no pulmonic valvular stenosis. There is no pulmo taina valvular regurgitation. Great Vessels The aortic root is normal in size. The ascending aorta is normal in size. IVC is normal in size and c ollapses >50% with inspiration. Pericardium There is no pericardial effusion. 2D Dimensions IVSD d PLAX 0.97 cm F: 0.6-1.0 LV Vol A2C d MOD 43.8 mL LVPW d PLAX 0.98 cm F: 0.6 - 1.0 LV Vol A4C d MOD 70.4 mL LVID d PLAX 4.21 cm F: 3.8 - 5.2 LA Area A4C s MOD 19.17 cm2 LVDs 2.95 cm F: 2.2 - 3.5 LA Area A2C s MOD 21.52 cm2 Ao Root d 2.08 cm F: 2.7 - 3.3 LV EF A4C MOD 55.8 % RA Area A4C 9.80 cm2 LV EF A2C MOD 55.1 % Ao Asc Diam d 3.17 cm F: 2.3 - 3.1 LV EF Biplane MOD 54.2 % LV EF Teichholz 55.8 % SV 30.50 mL LVEF (Parsons's) 54.23 % F: 54 - 74 LV Volume 56.24 mL F: 46 - 106 LV Volume Index 31.59 mL/m2 F: 29 - 61 LV Vol Biplane MOD 56.2 mL FS 28.80 % M-Mode TAPSE 1.64 cm (M/F) >1.7 LV Diastology MV E' medial 0.065 (>0.07 m/s) E/A Ratio 0.9 LV E/e MED 13.30 (<14) MV E Vmax 0.87 (0.4-1.3 m/s) MV E' lateral 0.058 (>0.1 m/s) MV A Vmax 0.95 (0.4-1.3 m/s) LV E/e LAT 15.00 (<14) MV E/A Ratio 0.90 MV E/E' medial 13.33 MV E/E' lateral 15.02 Aortic Valve LVOT Area 2.82 cm2 AoV Area Vmax 1.76 cm2 LVOT Vmax 1.16 m/s KRISTINA Mean Geovanny. 1.56 cm2 LVOT Mean Geovanny. 0.73 m/s LVOT Peak Grad 5.4 mmHg LVOT Mean Grad 2.6 mmHg LVOT VTI 0.267 m LVOT Diam s 1.85 cm AoV Vmax 1.86 m/s Velocity Ratio 0.62 AoV Mean Geovanny. 1.32 m/s AoV Peak Grad 13.8 mmHg LVOT SV 75.19 mL AoV Mean Grad 7.9 mmHg AoV VTI 0.417 m AoV Area VTI 1.80 cm2 Mitral Valve MV DT 423 (160-240 msec) MV PHT 123 msec MV Area PHT 1.79 cm2 MV VTI 0.423 m MV Area VTI 1.78 (4.0-6.0 cm2) Pulmonary Valve PV Vmax 0.95 (0.5-1.5 m/s) RVOT Peak Gr. 2.02 mmHg PV Peak Grad 3.6 mmHg RVOT Mean Gr. 1.00 mmHg PV Mean Grad 2.0 mmHg RVOT VTI 0.154 m PV VTI 0.198 m RVOT Vmax 0.71 m/s Tricuspid Valve TR Peak Grad 13.3 mmHg TR Vmax 1.83 m/s RA Pressure 3.00 mmHg RVSP (TR) 16.3 mmHg
== END ==
PROVIDERS: PCP Family Medicine; Visit Provider Nurse Practitioner Family
DX: R07.89 Other chest pain (principal); I34.0 Nonrheumatic mitral (valve) insufficiency; Z95.3 Presence of xenogenic heart valve
CPT/HCPCS: 93306

== ENCOUNTER 2022-07-28 08:00 | Outpatient (CLI) | payer MEDICARE, SELFPAY ==
--- NOTE | 2022-07-28 08:00 | RT.EKG_ITS ---
APPROVED REPORT Exam: Resting ECG Reason for Exam: chest pain Patient Location: O HR:62 bpm ECG Measurements Heart Rate 62 AXIS OH 202 P 69 QRSd 85 QRS 32 QT 427 T 41 QTc 434 Conclusion Sinus rhythm...normal P axis, V-rate 50- 99 Borderline low voltage, extremity leads...all extremity leads <0.6mV Otherwise normal
== END 2022-07-28 08:01 | disposition home or self-care (01) ==
LOC: DI.CARD 08:01
PROVIDERS: PCP Family Medicine; Visit Provider Internal Medicine Cardiovascular Disease
DX: R07.9 Chest pain, unspecified (principal)
CPT/HCPCS: 93010

== ENCOUNTER → 2022-07-28 10:32 | Outpatient (BNVA) | payer MEDICARE, SELFPAY | PROVIDERS: PCP Family Medicine; Referring Provider Family Medicine; Visit Provider Internal Medicine Cardiovascular Disease | DX: R07.9 Chest pain, unspecified (principal); F17.210 Nicotine dependence, cigarettes, uncomplicated; Z95.2 Presence of prosthetic heart valve | CPT/HCPCS: 93005; 99202; 99214 ==

== ENCOUNTER → 2022-09-29 10:48 | Outpatient (BNVA) | payer MEDICARE, SELFPAY | PROVIDERS: PCP Family Medicine; Referring Provider Family Medicine; Visit Provider Surgery | DX: K21.9 Gastro-esophageal reflux disease without esophagitis (principal); R11.0 Nausea; R10.13 Epigastric pain; R14.0 Abdominal distension (gaseous); Z95.3 Presence of xenogenic heart valve; Z86.010 Personal history of colon polyps | CPT/HCPCS: 99215; 99243 ==

== ENCOUNTER 2022-10-07 02:06 | Outpatient (CLI) | payer MEDICARE, SELFPAY ==
--- NOTE | 2022-10-07 06:45 | DI.US_ITS ---
Exam(s) US ABDOMEN EXAM: US ABDOMEN CLINICAL HISTORY: epigastric pain/bloating/naUSEA,R14.0,R10.13,R11.0,K21.9 TECHNIQUE: Ultrasound of complete upper abdomen performed using standard protocol. COMPARISON: US US ECHOCARDIOGRAM from 04/22/2022 FINDINGS: There is no ascites evident. LIVER: Liver is hyperechoic indicating steatosis. Liver size appears slightly prominent. There are no discrete focal hepatic lesions evident on these images. GALLBLADDER/BILIARY: There are no gallstones. No gallbladder wall edema nor pericholecystic fluid. The common hepatic duct isnot dilated, measuring 3-4mm at the level of adliene hepatis. PANCREAS: There is no evidence of pancreatic mass nor dilatation of the pancreatic duct. SPLEEN: The spleen is not enlarged and there are no intrasplenic lesions evident. Small accessory sp lenule noted KIDNEYS:Kidneys exhibit normal size with no evidence of solid mass, calculus, nor hydronephrosis. Sma ll 1 cm 9 cyst noted in the superior pole the left kidney. ABDOMINAL AORTA: There is no evidence of abdominal aortic aneurysm. IVC: Normal diameter where visualized. IMPRESSION: 1. No evidence of cholelithiasis nor dilatation of the biliary tree. 2. Hepatic steatosis. Correlation a patent blood work recommended. 3. Small benign 1 cm cyst in the left kidney. Does not require further workup. DATA REPOSITORY:
== END 2022-10-07 02:26 ==
LOC: DI 02:07
PROVIDERS: PCP Family Medicine; Visit Provider Surgery
DX: K21.9 Gastro-esophageal reflux disease without esophagitis (principal); R10.31 Right lower quadrant pain; R11.0 Nausea; R14.0 Abdominal distension (gaseous); K76.0 Fatty (change of) liver, not elsewhere classified; N28.1 Cyst of kidney, acquired
CPT/HCPCS: 76700

== ENCOUNTER → 2022-10-24 10:47 | Outpatient (BNVA) | payer MEDICARE, SELFPAY | PROVIDERS: PCP Family Medicine; Referring Provider Family Medicine; Visit Provider Surgery | DX: K21.9 Gastro-esophageal reflux disease without esophagitis (principal); Z80.0 Family history of malignant neoplasm of digestive organs | CPT/HCPCS: 99213 ==

== ENCOUNTER 2022-11-06 09:32 | Day surgery (SDC) | payer MEDICARE, SELFPAY ==
--- NOTE | 2022-11-05 21:30 | W.PM.DSUDISC ---
Date of service: 11/06/22 Time of Service: 12:04 Discharge Plan Disposition Patient Disposition: Home Condition: Good Discharge Details Reason For Visit: Colonoscopy Attending Provider: Gilberto Yu Primary Care Provider: Babar Mclaughlin Home Meds and New Rx's Prescriptions: Continued aspirin [Adult Aspirin Regimen] 81 mg tablet,delayed release (DR/EC) 81 mg PO DAILY pantoprazole [Protonix] 40 mg tablet,delayed release (DR/EC) 40 mg PO DAILY Qty: 30 3RF albuterol sulfate 90 mcg/actuation HFA aerosol inhaler 2 puff inhalation Q6H PRN prednisone 5 mg Tablet 5 mg PO PRN PRN lisinopril-hydrochlorothiazide 20-25 mg Tablet 1 tab PO DAILY epinephrine 0.3 mg/0.3 mL Auto-Injector 0.3 mg IM PRN PRN metoprolol tartrate 25 mg Tablet 25 mg PO DAILY escitalopram oxalate [Lexapro] 10 mg tablet 20 mg PO DAILY AM Patient Comments: TAKE ONE TABLET BY MOUTH EVERY DAY Discontinued polyethylene glycol 3350 17 gram/dose powder 238 g PO ONCE Qty: 238 0RF Rx Instructions: take per colonoscopy instructions bisacodyl [Dulcolax (bisacodyl)] 5 mg tablet,delayed release (DR/EC) 5 mg PO ONCE Qty: 4 0RF Rx Instructions: take per colonoscopy instructions omeprazole 40 mg capsule,delayed release(DR/EC) 40 mg PO DAILY Qty: 30 0RF Hold Instructions: Home Medication placed on hold at Doctor's office Discharge Instructions Instructions: Colorectal Polyps (GEN), Diverticulosis (ED), Diverticulosis Diet (GEN) Additional Instructions: Don, we were able to complete your colonoscopy today without any difficulty. I did find and removed 2 polyps. I will notify you when I have the report from the pathologist. Incidentally, you have some diverticulosis. We have attached some information here regarding management of diverticular disease 1. If tolerated, consume a soft, low fiber diet for 1-2 days. 2[address] Do not drive, drink alcohol, operate machinery, make critical decisions, or do activities that require coordination or balance for 24 hours. 3. Because air was put into your colon during the procedure, expelling air from your rectum (passing gas or farting) is normal. 4. You may not have a bowel movement for 1-3 days because of the colonoscopy prep. This is normal. 5. Go directly to the emergency room if you notice any of the following: Develop chills (warm to touch), or if you have a thermometer and your temperature is above 101 Difficulty breathing or difficultly swallowing Persistent vomiting Severe abdominal pain, other than gas cramps Severe chest pain Black, tarry stools Any bleeding ? exceeding one tablespoon 6. Call your physician if the site where your intravenous was started becomes red, swollen, painful, and warm to touch. 7. Your physician has reviewed your pre-procedure medications. Please continue to take those medications as previously ordered. You will be given specific information/education regarding any changes to your medications before leaving. Activity:: Activity as Tolerated Diet:: As Tolerated Discharge Orders Discharge Orders: Discharge Order (Routine); Ordered 11/05/22 Ordered By: Gilberto Yu DS: Diagnosis Discharge Diagnosis (1) Abdominal bloating: Status: Acute Asessment and Plan: Follow-up on pathology report from polypectomy
--- NOTE | 2022-11-05 21:32 | W.COLOREPORT ---
Date of service: 11/06/22 Time of Service: 12:03 Colonoscopy Report Date of procedure: 11/06/22 Pre-op diagnosis general: Screening colonoscopy Post-op diagnosis procedure note: other (Diverticulosis, colorectal polyps) Procedure: Colonoscopy with polypectomy Surgeon: Gilberto Yu Anesthesia Type: General:No Airway Estimated blood loss (mL): 10 Pathology: other (Polyp at 90 cm, polyp at 75 cm) Complications: None Disposition: same day Indications: Yumiko is 77 years olf and she is due for her next screening colonoscopy Prep: Miralax/Dulcolax Procedure Start Time: 11:35 Procedure End Time: 11:55 Retraction Time: 12 Findings: Diverticulosis, colon polyp at 90 cm and colon polyp at 75 cm Procedure Description: After the induction of monitored anesthetic care, and with the patient in left lateral decubitus position, I began by performing an external anorectal exam.? Perineum and skin were normal, as was the anal verge.? There was no evidence of external hemorrhoids.? Next, I performed a digital rectal exam.? I did not appreciate any abnormal findings.? Next, I advanced a colonoscope into the rectal vault.? I performed retroflexion.? This was normal.? Using insufflation, I then advanced the colonoscope beyond the rectal folds and into the sigmoid colon before advancing towards the cecum.? There was sigmoid diverticulosis. the quality of the prep was excellent.? The scope was noted to be in the cecum by identification of the ileocecal valve and appendiceal orifice.? I then began withdrawing the colonoscope using repeated irrigation as necessary for full evaluation of the colonic mucosa. Around 90 cm from the anal verge I identified a 0.5 cm polyp. ?It appeared sessile in character. ?I was able to remove this with a cold snare. ?I examined the site, and there was minimal bleeding. Similarly, around 75 cm, there was another 0.5 cm polyp. This was a big fan shaped. I removed it with a cold snare. Once this was completed, I continued to withdraw the scope and examine the remainder of the colonic mucosa.?Once the scope was withdrawn to the level of the rectum, great care was taken to examine portions of the rectal folds.? Finally, the scope was withdrawn and the patient was brought to the same-day surgery recovery unit as the anesthetic wore off. ?The findings and instructions were shared with the patient prior to discharge.
[2022-11-06 10:07] VITALS: BP 134/61; PULSE 72; RESP 18; TEMP 36.3; O2SAT 98
[2022-11-06] MEDS: Lactated Ringers 1,000 ML 80 ML IV (10:40)
--- NOTE | 2022-11-06 11:06 | W.ANESPRE ---
General Info Date of Service Date Performed: 11/06/22 Height: 5 ft 3 in Weight: 79.5 kg Body Mass Index (BMI): 31.0 Surgical Procedure: Operation Date: 11/06/22 11:20 Proposed Procedure Side Surgeon p Colonoscopy w/possible Polypectomy Gilberto Yu MD Meds Allergies and Home Medications Allergies Allergy/AdvReac Type Severity Reaction Status Date / Time hornet venom Allergy Severe Anaphylaxis Verified 11/06/22 10:24 latex Allergy RASH Verified 11/06/22 10:24 adhesive tape AdvReac Skin Rash Verified 11/06/22 10:24 Home Medication Medication Instructions Recorded epinephrine 0.3 mg/0.3 mL 0.3 mg IM PRN PRN 12/31/20 injection, auto-injector lisinopril 20 1 tab PO DAILY 12/31/20 mg-hydrochlorothiazide 25 mg tablet metoprolol tartrate 25 mg tablet 25 mg PO DAILY 12/31/20 prednisone 5 mg tablet 5 mg PO PRN PRN 12/31/20 omeprazole 40 mg capsule,delayed 40 mg PO DAILY #30 caps 03/30/22 release aspirin 81 mg tablet,delayed 81 mg PO DAILY 07/28/22 release (Adult Aspirin Regimen) escitalopram oxalate 10 mg tablet 20 mg PO DAILY AM 07/28/22 (Lexapro) albuterol sulfate 90 mcg/actuation 2 puff inhalation Q6H PRN 09/11/22 aerosol inhaler pantoprazole 40 mg tablet,delayed 40 mg PO DAILY #30 tabs 09/29/22 release (Protonix) Current Visit Medications: Current Medications Generic Name Dose Route Start Last Admin Trade Name Freq PRN Reason Stop Dose Admin Hyoscyamine Sulfate 0.125 mg 11/05/22 21:34 Hyoscyamine 0.125 Mg Sl/Oral/Chew SL DIRECTED PRN Ringer's Solution 1,000 mls @ 80 mls/hr 11/06/22 06:00 11/06/22 10:40 IV 12/05/22 23:59 80 mls/hr INFUSION MUKUL Administration Ampicillin Sodium 2 gm/ Sodium 100 mls @ 300 mls/hr 11/06/22 06:00 Chloride IVPB 11/06/22 16:00 PREOP MUKUL IV Miscellaneous Supplies 1 each 11/06/22 06:00 Iv Access IV 12/05/22 23:59 DIRECTED MUKUL Ondansetron HCl 4 mg 11/05/22 21:34 Ondansetron 4 Mg/2 Ml Vial IVP Q4H PRN PRN Nausea / Vomiting Sodium Chloride 0 ml 11/06/22 06:00 Normal Saline Flush 10 Ml Syr IV 12/05/22 23:59 PRN PRN Sodium Chloride 0 ml 11/06/22 06:00 Normal Saline 10 Ml Vial IJ 12/05/22 23:59 DIRECTED PRN Sterile Water 0 ml 11/06/22 06:00 Water,Injection,Sterile 10 Ml Vial IJ 12/05/22 23:59 DIRECTED PRN PFSH Active Problems Active Problems: Problem Status Onset Code Left buttock pain M79.18 Chest pain R07.9 Chronic GERD K21.9 Chronic nausea R11.0 Epigastric pain R10.13 Abdominal bloating R14.0 Medical History Medical History Aneurysm Pt.denies this Aortic stenosis [place] lesion of lung Depression Diabetes Family history of colon cancer HTN (hypertension) Low back pain Motion sickness Nicotine dependence Overweight Rheumatoid arthritis Medical History Comments:: Per pt. states her brother recieved anesthesia and had memory issues, made him very loopy. 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 Surgical History Surgical History History of colonoscopy 08/26/2016 @[facility] 11/19/2009 @[facility] with polypectomies= Hyperplastic History of tonsillectomy S/P AVR (aortic valve replacement) (~03/20/17) Tobacco Smoking/Tobacco Use Status: Current every day Tobacco Type: cigarettes Smoking cigarettes per day: 10 Years smoked: 60 Smoking pack-years: 30.00 Alcohol Alcohol Intake: current Alcohol intake frequency: holidays/special occasions only Alcohol type: beer Substance Use Substance use: Never Substance use type: does not use Vital Signs and Lab Results Vital Signs Most Recent Vital Signs in EMR: Most Recent Vital Signs Temp Pulse Resp BP Pulse Ox 36.3 C L 72 18 134/61 98 11/06/22 10:07 11/06/22 10:07 11/06/22 10:07 11/06/22 10:07 11/06/22 10:07 Lab Results Blood Type / Crossmatch: No Data to Display Complete Blood Count: No Data to Display Complete Metabolic Panel: No Data to Display Liver Function Panel: No Data to Display Coagulation Panel: No Data to Display Cardiac Panel: No Data to Display Arterial Blood Gas: No Data to Display Venous Blood Gas: No Data to Display Pancreas Panel: No Data to Display Thyroid Panel: No Data to Display Infectious Disease: No Data to Display Blood Cultures: No Data to Display Toxicology Panel: No Data to Display Imaging and Studies Imaging and Studies Study information below may be from another EMR and interpreted by another provider. Please see original notes in EMR for more complete details. EKG Summary: EKG PATIENT NAME: Vikas Peralta #: [id number] ORDERING PROVIDER: Selene Bates M.D. PRIMARY CARE PROVIDER:ADRIEL MCLAUGHLIN DATE/TIME OF SERVICE: 07/28/22 1111 : 1945ERFORMING LOCATION: .CARD APPROVED REPORT Exam: Resting ECG Reason for Exam: chest pain Patient Location: O HR:62 bpm ECG Measurements Heart Rate 62 AXIS ND 202 P 69 QRSd 85 QRS 32 QT 427 T41 QTc 434 Conclusion Sinus rhythm...normal P axis, V-rate 50- 99 Borderline low voltage, extremity leads...all extremity leads <0.6mV Otherwise normal Stress Test Summary: Patient Name: Vikas Peralta #: [id number]: OBED Ordering Provider: Trung Mclaughlinunt #: [id number]: REG CLI Primary Care Provider: Adriel MclaughlinDate of Exam: 04/21/22Sex: F Admission Date: 04/21/22 : 1945 Age: 77 APPROVED REPORT Exam: Pharmacologic Patient Location: Out-Patient Room/Bed: Stress Nurse: Stefania Riggs RN Ordering Provider:ADRIEL MCLAUGHLIN, Contact Number: [phone] BMI: 31.27 Baseline Rhythm: Sinus Rhythm Comment: 1st degree AV block Indications: Chest pain, hx coronary/valvular heart disease Medical History Medical History: CVD, hypertension, diabetes, smoker (current) Cardiac Medications: Metoprolol tartrate, lisinopril-HCTZ, aspirin, omeprazole Allergies: Hornets, adhesive Cardiac Risk Factors: Hypertension, diabetes, smoker (current) Previous Cardiac Procedures: AVR Pretest Chest Pain Characteristics: None Exercise History: Sedentary Physical Disabilities: None Lung Sounds: Clear to auscultation Heart Sounds: Regular Stress Test Details Test: Exercise stress converted to pharmacologic stress due to failure to obtain a diagnostic stress test. Reason for pharmacologic stress test: changed from exercise stress test due to inability to reach target heart rate. Nuclear Acquisition: Rest Tc-99m/Stress Tc-99m 1 day Rest Isotope: Tc-99m Sestamibi. Dose: 9.5 Date: 04/21/2022 Injection Time: 0900 Stress Isotope: Tc-99m Sestamibi. Dose: 30.0 Date: 04/21/2022 Injection Time: 1145 HR Resting HR Supine: 59 bpmMax Heart Rate (APMHR): 142.542228 bpm Resting HR Standin bpmTarget HR (85% APMHR): 120.283838 bpm Max HR Achieved: 114 bpm % of APMHR: 80.28 Recovery HR: 81 bpm Comment: Metoprolol tartrate held for 24 hrs per pt BP Resting BP Supine: 146/80 mmHg Resting BP Standin/56 mmHg Max BP: 160/54 mmHg Recovery BP: 146/52 mmHg BP response to stress: Normal blood pressure response to stress. ECG Resting ECG: Sinus rhythm, 1st degree AV block Ectopy: None Stress ECG: Sinus tachycardia, 1st degree AV block ST Change: Nondiagnostic low heart rate, No significant ST segment changes noted Arrhythmia: Rare PAC Recovery ECG: Sinus rhythm, 1st degree AV block Recovery ST Change: Nondiagnostic low heart rate, No significant ST segment changes noted Clinical Stress Symptoms: Dyspnea, chest tightness Exercise duration: 2 min40 sec Highest Stage Reached: Stage 1: 1.7 mph at 10% grade. Exercise capacity: 4.64 METs Angina Score: Non-Limiting Rate Pressure Product: 18868 Stress ECG Conclusion 1. The resting electrocardiogram showed first-degree AV block 2. Patient underwent testing using combination of low-level exercise and pharmacologic stress with regadenoson 3. Peak heart rate achieved was 80% of predicted for age 4. The electrocardiographic portion of the test was nondiagnostic due to inadequate heart rate 5. See MPI report Echocardiogram Summary: Patient Name: Vikas Peralta #: [id number]: DI Ordering Provider: Dylan Arango NPAccount #: [id number]: REG CLI Primary Care Provider: Keenan Mclaughlin of Exam: 04/22/22Sex: F Admission Date: 04/22/22 : 1945 Age: 77 APPROVED REPORT EXAM: Comprehensive 2D, Doppler, and color-flow Echocardiogram Patient Location: Out-Patient Healthcare Sales Representative: Diana Soler RDCS (AE) Indications: Bioprosthetic aortic valve, Chest tightness Other Information Study Quality: Adequate Conclusion Normal left ventricular wall thickness and chamber size. Estimated ejection fraction is 55 to 60%. Wall motion is normal Normal right ventricular size and systolic function Both atria are normal in size There is a bioprosthetic aortic valve with normal function. Mean gradient is 8 mmHg there is no aortic regurgitation Moderate mitral annular calcification with trace to mild regurgitation Normal tricuspid valve with trace regurgitation. Estimated right ventricular systolic pressure is 16 mmHg Wall motion Left Ventricle The left ventricle is normal size. The left ventricular systolic function is normal. The left ventricular ejection fraction is within the normal range. There is normal left ventricular wall thickness. There is normal LV segmental wall motion. There is no ventricular septal defect visualized. LVEF is 55-60%. Right Ventricle The right ventricle is normal size. The right ventricular systolic function is normal. The RVSP is 16.3_ mmHg. Atria The left atrium size is normal. The right atrium size is normal. The interatrial septum is intact with no evidence for an atrial septal defect. Aortic Valve Peak gradient is 14, mean 8 mmHg No aortic regurgitation is present. Bioprosthetic aortic valve is present. Mitral Valve Moderate mitral annular calcification. No evidence of mitral valve stenosis. Trace to mild mitral regurgitation. Tricuspid Valve The tricuspid valve is normal in structure. There is no tricuspid valve stenosis. Trace tricuspid regurgitation. Pulmonic Valve The pulmonary valve is normal in structure. There is no pulmonic valvular stenosis. There is no pulmonic valvular regurgitation. Great Vessels The aortic root is normal in size. The ascending aorta is normal in size. IVC is normal in size and collapses >50% with inspiration. Pericardium There is no pericardial effusion. 2D Dimensions IVSD d PLAX 0.97 cm F: 0.6-1.0LV Vol A2C d MOD 43.8 mL LVPW d PLAX 0.98 cm F: 0.6 - 1.0LV Vol A4C d MOD 70.4 mL LVID d PLAX 4.21 cm F: 3.8 - 5.2LA Area A4C s MOD 19.17 cm2 LVDs 2.95 cm F: 2.2 - 3.5LA Area A2C s MOD 21.52 cm2 Ao Root d 2.08 cm F: 2.7 - 3.3LV EF A4C MOD 55.8 % RA Area A4C9.80 cm2LV EF A2C MOD 55.1 % Ao Asc Diam d 3.17 cm F: 2.3 - 3.1LV EF Biplane MOD 54.2 % LV EF Teichholz 55.8 %SV30.50 mL LVEF (Parsons's)54.23 % F: 54 - 74 LV Scsabz77.24 mL F: 46 - 106 LV Volume Index31.59 mL/m2 F: 29 - 61 LV Vol Biplane MOD 56.2 mL FS28.80 % M-Mode TAPSE 1.64 cm (M/F) >1.7 LV Diastology MV E' medial0.065 (>0.07 m/s)E/A Ratio 0.9 LV E/e MED13.30 (<14)MV E Vmax 0.87 (0.4-1.3 m/s) MV E' lateral0.058 (>0.1 m/s)MV A Vmax 0.95 (0.4-1.3 m/s) LV E/e LAT15.00 (<14)MV E/A Ratio 0.90 MV E/E' medial 13.33 MV E/E' hwyoorz35.02 Aortic Valve LVOT Area2.82 cm2AoV Area Vmax1.76 cm2 LVOT Vmax 1.16 m/sAVA Mean Geovanny.1.56 cm2 LVOT Mean Geovanny.0.73 m/s LVOT Peak Grad 5.4 mmHg LVOT Mean Grad 2.6 mmHg LVOT VTI0.267 m LVOT Diam s 1.85 cm AoV Vmax1.86 m/s Velocity Ratio 0.62 AoV Mean Geovanny.1.32 m/s AoV Peak Grad13.8 mmHg LVOT SV 75.19 mL AoV Mean Grad7.9 mmHg AoV VTI0.417 m AoV Area VTI1.80 cm2 Mitral Valve MV DT 423 (160-240 msec) MV IYX202 msec MV Area PHT 1.79 cm2 MV VTI 0.423 m MV Area VTI 1.78 (4.0-6.0 cm2) Pulmonary Valve PV Vmax 0.95 (0.5-1.5 m/s)RVOT Peak Gr.2.02 mmHg PV Peak Grad 3.6 mmHgRVOT Mean Gr.1.00 mmHg PV Mean Grad 2.0 mmHgRVOT VTI0.154 m PV VTI 0.198 mRVOT Vmax 0.71 m/s Tricuspid Valve TR Peak Grad 13.3 mmHgTR Vmax 1.83 m/s RA Pressure 3.00 mmHg RVSP (TR) 16.3 mmHg Ordered By: Dylan Arango NP CC: Dictated By: Selene Bates M.D. 04/22/22 1228 <Electronically signed by Selene Bates M.D. in OV> 04/22/22 1239 Transcribed By: Selene Bates MD Other Study Summary:: Patient Name: Vikas Peralta #: [id number]: DI Ordering Provider: Mallika Srinivasan #: [id number]: REG CLI Primary Care Provider: Keenan Mclaughlin of Exam: 10/07/22Sex: F Admission Date: 10/07/22 : 1945 Age: 77 Exam(s) US ABDOMEN EXAM: US ABDOMEN CLINICAL HISTORY: epigastric pain/bloating/naUSEA,R14.0,R10.13,R11.0,K21.9 TECHNIQUE: Ultrasound of complete upper abdomen performed using standard protocol. COMPARISON: US US ECHOCARDIOGRAM from 04/22/2022 FINDINGS: There is no ascites evident. LIVER: Liver is hyperechoic indicating steatosis. Liver size appears slightly prominent. There are no discrete focal hepatic lesions evident on these images. GALLBLADDER/BILIARY: There are no gallstones. No gallbladder wall edema nor pericholecystic fluid. The common hepatic duct isnot dilated, measuring 3-4mm at the level of adilene hepatis. PANCREAS: There is no evidence of pancreatic mass nor dilatation of the pancreatic duct. SPLEEN: The spleen is not enlarged and there are no intrasplenic lesions evident. Small accessory splenule noted KIDNEYS:Kidneys exhibit normal size with no evidence of solid mass, calculus, nor hydronephrosis. Small 1 cm 9 cyst noted in the superior pole the left kidney. ABDOMINAL AORTA: There is no evidence of abdominal aortic aneurysm. IVC: Normal diameter where visualized. IMPRESSION: 1. No evidence of cholelithiasis nor dilatation of the biliary tree. 2. Hepatic steatosis. Correlation a patent blood work recommended. 3. Small benign 1 cm cyst in the left kidney. Does not require further workup. Anesthesia Assessment and Plan Anesthesia History Personal History: No History of Anesthesia Complications Family History: Other Exercise Tolerance Exercise Tolerance: Metabolic Equivalents>4 Pertinent Negatives Pertinent Negatives: No Symptoms of GERD and No Major Pulmonary Symptoms or Complaints Cardiac & Pulmonary Exam Cardiac Exam: Normal S1/S2 Heart Sounds Pulmonary Exam: Clear Bilateral Breath Sounds Implantable Cardiac Device Does patient have a Pacemaker or an ICD?: No Airway Exam Known Difficult Airway: No Mallampati Class: 1 Mouth Opening: Normal (> 3cm) Thyromental Distance: Greater than 3 cm Neck Range of Motion: Full ROM Neck Circumference: Normal Teeth Condition: Generalized Poor Dentition (lower, no loose teeth) and Removable Dentures/Plates Upper ASA Classification ASA Score: ASA 2 Emergency Case?: No NPO Status NPO Status: NPO Clears >2 hours, Solids >8 hours Anesthesia Plan Resuscitation Status: Full Code Anesthesia Technique: General Anesthesia Airway Planned: Natural Airway Monitors Used: Standard Monitors
[2022-11-06] MEDS: AMPICILLIN SODIUM 2 GM in Normal Saline 100 ML IVPB (11:33)
[2022-11-06 11:42] VITALS: BMI 31.0
--- NOTE | 2022-11-06 11:47 | BOWEL_PTH ---
PATIENT: Yumiko Peralta LOC: [facility] U#:[id number] AGE/SX: 77/F ROOM: RE11/06/[address]: Gilberto Yu MD : 1945 BED: DIS: 11/06/2022 SPEC #: [id number] RECD: 11/06/22 12:54 STATUS: CALVIN REQ #: [id number] HEBER: 11/06/22 11:[address]: Gilberto Yu DEPT: Surgical Specimen RECD BY: Kristi Honeycutt ENTERED: 11/06/22 12:54 SP TYPE: Bowel OTHR DR: Babar Mclaughlin Tissues: 1 - BIOPSY BOWEL 2 - BIOPSY BOWEL Procedures: GROSS AND MICRO LEVEL 4 Comments: [id number]
[2022-11-06 11:58] VITALS: BP 124/48; PULSE 67; RESP 18; TEMP 36.2; O2SAT 99
[2022-11-06 12:31] VITALS: BP 137/47; PULSE 61; RESP 18; TEMP 36.6; O2SAT 97
--- NOTE | 2022-11-06 13:09 | W.ANESPOSTOP ---
Postoperative Evaluation Date, Time and Location Date Performed: 11/06/22 Time Performed: 13:09 Patient Location: Day Surgery Unit Vital Signs Most Recent Imported Vital Signs: Most Recent Vital Signs Temp Pulse Resp BP Pulse Ox 36.6 C 61 18 137/47 L 97 11/06/22 12:31 11/06/22 12:31 11/06/22 12:31 11/06/22 12:31 11/06/22 12:31 Pain Score Most Recent Pain Score: Most Recent Pain Score Pain Level 0 11/06/22 12:31 Assessment Mental Status: Awake (Alert & Oriented to Patient Baseline) Airway and Respiratory Function: Patent airway with normal (patient baseline) respiratory exam Cardiovascular Function: Hemodynamically Stable Hydration Status: Adequately Hydrated Nausea & Vomiting: No Nausea or Vomiting Pain: Pt. Denies Any Pain Peripheral Nerve Block: Patient did not receive a nerve block
[2022-11-06 13:17] VITALS: BP 126/68; PULSE 62; RESP 18; TEMP 36.5; O2SAT 97
== END 2022-11-06 12:42 | disposition home or self-care (01) ==
PROVIDERS: PCP Family Medicine; Visit Provider Surgery
PROC: 0DJD8ZZ Inspection of Lower Intestinal Tract, Via Natural or Artificial Opening Endoscopic (ICD-10-PCS; CPT 45378; principal; 2022-11-06 11:15)
DX: Z12.11 Encounter for screening for malignant neoplasm of colon (principal); K63.5 Polyp of colon; Z80.0 Family history of malignant neoplasm of digestive organs; K21.9 Gastro-esophageal reflux disease without esophagitis; K57.30 Diverticulosis of large intestine without perforation or abscess without bleeding; K63.89 Other specified diseases of intestine
CPT/HCPCS: 45385; 88305; J0290

== ENCOUNTER 2022-12-18 16:53 | Emergency (ER) | payer MEDICARE, SELFPAY ==
[2022-12-18 17:07] VITALS: BP 125/44; PULSE 78; RESP 18; TEMP 36.8; O2SAT 97
--- NOTE | 2022-12-18 17:15 | DI.CT_ITS ---
Exam(s) CT HEAD WO EXAM: CT HEAD WO CLINICAL HISTORY: headache, head injury. TECHNIQUE: Imaging Protocol: Axial computed tomography images with coronal and sagittal reformatted images were created and reviewed COMPARISON: No exams were available for comparison FINDINGS: Ventricles and Extra axial spaces: Normal in size and morphology for the patient's age. Hemorrhage: None. Cerebral parenchyma: No acute territorial infarct. There are areas of decreased attenuation in the w marla matter consistent with small vessel ischemic disease. Midline shift: None. Brainstem/Cerebellum: Normal. Note is made of a partially empty sella. Calvarium: Normal. Visualized Paranasal sinuses/Mastoids: Clear. Soft Tissues: Unremarkable. IMPRESSION: No acute intracranial process. RADIATION DOSE DELIVERED: 732.87mGy.cm Total DLP DATA REPOSITORY: All CT scans at this facility are submitted to the National Radiology Data Registry (NRDR) Dose Index Registry (DIR) with the [employer] (ACR). RADIATION OPTIMIZATION: All CT scans at this facility use at least one of these dose optimization te chniques: automated exposure control; mA and/or kV adjustment per patient size (includes targeted exa ms where dose is matched to clinical indication); or iterative reconstruction.
--- NOTE | 2022-12-18 18:03 | DI.VRAD_ITS ---
PROCEDURE INFORMATION: Exam: CT Head Without Contrast Exam date and time: 12/18/2022 5:48 PM Age: 77 years old Clinical indication: Pain and injury or trauma; Other: Hit head on shelf; Blunt trauma (contusions or hematomas); Consciousness not specified; Patient HX: Headache, injury; Per PT: Stood up under shelf and hit head, slept all day, head still hurts TECHNIQUE: Imaging protocol: Computed tomography of the head without contrast. COMPARISON: No relevant prior studies available. FINDINGS: Brain: Moderate generalized cerebral/cerebellar atrophy. Mild bilateral white matter hypodensities which are nonspecific but most commonly associated with chronic microvascular ischemia in this age group. The IACs are grossly normal. No extra-axial fluid collections. Mild prominence of the peripheral CSF spaces, felt to be related to generalized atrophy. No evidence of acute intracranial hemorrhage. No CT evidence of large territory acute or subacute intracranial ischemia/infarct. No intracranial mass lesions. No midline shift or herniation. Cerebral ventricles: Slight compensatory ventriculomegaly secondary to central atrophy. Pituitary gland and sella: Partially empty sella configuration incidentally noted. Paranasal sinuses: Visualized paranasal sinuses are clear. Mastoid air cells: Visualized mastoid air cells are clear. Orbital cavities: No acute intraorbital findings. Prior bilateral ocular lens extraction. Bones/joints: The calvarium and visualized facial bones are intact. Soft tissues: The scalp and visualized soft tissues demonstrate no acute abnormality. Vasculature: Moderate calcific atherosclerosis. No asymmetric vascular hyperdensities suggestive of thrombosis are identified. Other findings: Fuentes-white matter differentiation is well maintained. IMPRESSION: 1. No acute intracranial process. No intracranial hemorrhage or mass effect. 2. Atrophy and microvascular changes consistent with age. 3. Moderate calcific atherosclerosis. Dictated and Authenticated by: Babar Cooper MD. Ordering:KRYSTAL Kern MD
--- NOTE | 2022-12-18 19:44 | ED.GENADUL_ITS ---
Discharge Plan Disposition Patient Disposition: Home Condition: Stable Discharge Details Clinical Impression: Concussion Primary Care Provider: Babar Mclaughlin ED Provider: Concha Ac Home Meds and New Rx's Prescriptions: New naproxen 500 mg tablet 500 mg PO BID PRNQty: 14 0RF Continued aspirin [Adult Aspirin Regimen] 81 mg tablet,delayed release (DR/EC) 81 mg PO DAILY pantoprazole [Protonix] 40 mg tablet,delayed release (DR/EC) 40 mg PO DAILY Qty: 30 3RF albuterol sulfate 90 mcg/actuation HFA aerosol inhaler 2 puff inhalation Q6H PRN prednisone 5 mg Tablet 5 mg PO PRN PRN lisinopril-hydrochlorothiazide 20-25 mg Tablet 1 tab PO DAILY epinephrine 0.3 mg/0.3 mL Auto-Injector 0.3 mg IM PRN PRN metoprolol tartrate 25 mg Tablet 25 mg PO DAILY escitalopram oxalate [Lexapro] 10 mg tablet 20 mg PO DAILY AM Patient Comments: TAKE ONE TABLET BY MOUTH EVERY DAY Discharge Instructions Instructions: Concussion (ED) Additional Instructions: take napoxen 250-500 mg twice daily as directed can add acetaminophen 650 mg four times daily if needed for breakthrough pain can take ondansetron 4 mg 4 times daily if needed for nausea or vomiting Referrals: Babar Mclaughlin [Primary Care Provider] - Discharge Data Discharge Date/Time-TO BE ENTERED AT DEPARTURE: 12/18/22 20:30 Medical Decision Making <Concha Ac NP - Last Filed: 12/25/22 16:20> Imaging Data Radiologic Study: Imaging: CT Scan (head) Radiologist's impression: PROCEDURE INFORMATION: Exam: CT Head Without Contrast Exam date and time: 12/18/2022 5:48 PM Age: 77 years old Clinical indication: Pain and injury or trauma; Other: Hit head on shelf; Blunt trauma (contusions or hematomas); Consciousness not specified; Patient HX: Headache, injury; Per PT: Stood up under shelf and hit head, slept all day, head still hurts TECHNIQUE: Imaging protocol: Computed tomography of the head without contrast. COMPARISON: No relevant prior studies available. FINDINGS: Brain: Moderate generalized cerebral/cerebellar atrophy. Mild bilateral white matter hypodensities which are nonspecific but most commonly associated with chronic microvascular ischemia in this age group. The IACs are grossly normal. No extra-axial fluid collections. Mild prominence of the peripheral CSF spaces, felt to be related to generalized atrophy. No evidence of acute intracranial hemorrhage. No CT evidence of large territory acute or subacute intracranial ischemia/infarct. No intracranial mass lesions. No midline shift or herniation. Cerebral ventricles: Slight compensatory ventriculomegaly secondary to central atrophy. Pituitary gland and sella: Partially empty sella configuration incidentally noted. Paranasal sinuses: Visualized paranasal sinuses are clear. Mastoid air cells: Visualized mastoid air cells are clear. Orbital cavities: No acute intraorbital findings. Prior bilateral ocular lens extraction. Bones/joints: The calvarium and visualized facial bones are intact. Soft tissues: The scalp and visualized soft tissues demonstrate no acute abnormality. Vasculature: Moderate calcific atherosclerosis. No asymmetric vascular hyperdensities suggestive of thrombosis are identified. Other findings: Fuentes-white matter differentiation is well maintained. IMPRESSION: 1. ? No acute intracranial process. No intracranial hemorrhage or mass effect. 2. ? Atrophy and microvascular changes consistent with age. 3. ? Moderate calcific atherosclerosis. Dictated and Authenticated by: Babar Cooper MD. Ordering:KRYSTAL Kern MD <Germania Young DO - Last Filed: 12/26/22 08:18> Dr. Young Pt not seen or examined by me but I was available for consult if needed. HPI <Concha Ac NP - Last Filed: 12/25/22 16:20> General Mode of arrival: ambulatory . Date/Time Provider Initiated Documentation: 12/18/22 17:16 . Limitations to Documentation: no limitations . Information obtained by: patient . HPI Narrative: struck head a few days ago now with headache Related Data Home Medications Medication Instructions Recorded Confirmed epinephrine 0.3 mg/0.3 mL 0.3 mg IM PRN PRN 12/31/20 11/05/22 injection, auto-injector lisinopril 20 1 tab PO DAILY 12/31/20 11/06/22 mg-hydrochlorothiazide 25 mg tablet metoprolol tartrate 25 mg tablet 25 mg PO DAILY 12/31/20 11/06/22 prednisone 5 mg tablet 5 mg PO PRN PRN 12/31/20 11/06/22 aspirin 81 mg tablet,delayed 81 mg PO DAILY 07/28/22 11/06/22 release (Adult Aspirin Regimen) escitalopram oxalate 10 mg tablet 20 mg PO DAILY AM 07/28/22 11/06/22 (Lexapro) albuterol sulfate 90 mcg/actuation 2 puff inhalation Q6H PRN 09/11/22 11/06/22 aerosol inhaler pantoprazole 40 mg tablet,delayed 40 mg PO DAILY #30 tabs 09/29/22 11/06/22 release (Protonix) naproxen 500 mg tablet 500 mg PO BID PRN #14 tabs 12/18/22 Previous Rx's Medication Instructions Recorded pantoprazole 40 mg tablet,delayed 40 mg PO DAILY #30 tabs 09/29/22 release (Protonix) naproxen 500 mg tablet 500 mg PO BID PRN #14 tabs 12/18/22 Allergies Allergy/AdvReac Type Severity Reaction Status Date / Time hornet venom Allergy Severe Anaphylaxis Verified 11/06/22 10:24 latex Allergy RASH Verified 11/06/22 10:24 adhesive tape AdvReac Skin Rash Verified 11/06/22 10:24 General Stated Complaint: Headache JOSE JUAN: 4 Review of Systems <Concha Ac NP - Last Filed: 12/25/22 16:20> All systems reviewed & are unremarkable except as noted in HPI and below PFSH <Concha Ac NP - Last Filed: 12/25/22 16:20> All Active Problems (Updated 12/18/22 @ 19:45 by Concha Ac NP) Concussion (Acute) Tubular adenoma of colon (Acute ~11/06/22) Left buttock pain (Acute) Chest pain (Acute) Chronic GERD (Acute) Chronic nausea (Acute) Epigastric pain (Acute) Abdominal bloating (Acute) Medical History (Updated 12/18/22 @ 19:45 by Concha Ac NP) Aneurysm Pt.denies this Aortic stenosis [place] lesion of lung Depression Diabetes Family history of colon cancer HTN (hypertension) Low back pain Motion sickness Nicotine dependence Overweight Rheumatoid arthritis Surgical History (Updated 12/05/22 @ 13:54 by Lakeshia Villa RN) History of colonoscopy 08/26/2016 @[facility] 11/19/2009 @[facility] with polypectomies= Hyperplastic History of colonoscopy with polypectomy (~11/06/22) History of tonsillectomy S/P AVR (aortic valve replacement) (~03/20/17) Social History (Updated 07/28/22 @ 11:32 by Hill Almeida RN) Smoking/Tobacco Use Status: Current every day Tobacco Type: cigarettes Years smoked: 60 Smoking risk assessment performed?: Yes Alcohol Intake: current Alcohol Intake frequency: holidays/special occasions only Alcohol type: beer Drug use: Never Substance use type: does not use Do you feel safe at home: Yes Do you feel safe in your relationship?: Yes Exam <Concha Ac NP - Last Filed: 12/25/22 16:20> Const General: cooperative, comfortable and no acute distress Nutritional Appearance: average body habitus Orientation: alert, awake and oriented x3 HENMT Head: normal to inspection, normocephalic and atraumatic Mouth: oral mucosae normal Chest Chest: normal inspection of the chest Resp Effort & Inspection: normal respiratory effort Cardio Rate: regular rate Rhythm: regular rhythm GI Inspection: normal to inspection Skin General skin exam: no rashes or lesions noted Neuro General: patient alert, patient awake, patient oriented x3, moves all extremities and no focal motor deficits Cognition: normal cognition Speech: speech normal Gait: normal gait Motor: muscle tone normal throughout Extrem General: normal to inspection, full ROM and no pedal edema Course <Concha Ac NP - Last Filed: 12/25/22 16:20> Vital Signs Vital signs: Vital Signs Temperature 36.8 C 12/18/22 17:07 Pulse 78 12/18/22 17:07 Respiratory Rate 18 12/18/22 17:07 Blood Pressure 125/44 L 12/18/22 17:07 Pulse Oximetry 97 12/18/22 17:07 Temperature 36.8 C 12/18/22 17:07 Temperature Source Tympanic 12/18/22 17:07 Pulse 78 12/18/22 17:07 Respiratory Rate 18 12/18/22 17:07 Blood Pressure 125/44 L 12/18/22 17:07 Blood Pressure Position Sitting 12/18/22 17:07 Pulse Oximetry 97 12/18/22 17:07 Oxygen Delivery Method Room Air 12/18/22 17:07 Oxygen Flow Rate 0 12/18/22 17:07 Pain Level 5 12/18/22 17:07 Comment has taken zycam and advil 12/18/22 17:07
[2022-12-18] MEDS: Naproxen 250 MG TAB PO (19:55)
[2022-12-18] MEDS: Ondansetron O.D.T. 4 MG TABEF, 3 TABS/BTL PO (19:55)
== END 2022-12-18 20:30 | disposition home or self-care (01) ==
PROVIDERS: Emergency Provider Nurse Practitioner Acute Care; PCP Family Medicine
DX: S06.0X0A Concussion without loss of consciousness, initial encounter (principal); E11.9 Type 2 diabetes mellitus without complications; I10 Essential (primary) hypertension; X58.XXXA Exposure to other specified factors, initial encounter
CPT/HCPCS: 99284; 70450

== ENCOUNTER 2023-03-27 01:10 | Outpatient (CLI) | payer MEDICARE, SELFPAY ==
--- NOTE | 2023-03-27 | DI.CT_ITS ---
Exam(s) CT CHEST WO EXAM: CT CHEST WO CLINICAL HISTORY: SMOKER,SCREENING FOR LUNG CA. TECHNIQUE: Multi planar reconstructions were performed. CONTRAST MATERIAL: None COMPARISON: CR,XR XR PORTABLE CHEST AP from 03/30/2022 CT,NM,TMT NM MPI REST STRESS GRP from 04/21/[address] HEAD WO from 12/18/2022 FINDINGS: CHEST: LUNGS: There is a 1.7 x 1.6 cm focal ground-glass infiltrate in the right upper lobe which requires c lose follow-up. There are no other focal lung findings. No pleural effusions. No significant findi ngs in the trachea and mainstem bronchi. MEDIASTINUM: There is no obvious hilar nor mediastinal adenopathy. Visualized thyroid unremarkable. CARDIAC: Sternotomy wires. Heart size is normal. There is no pericardial effusion.Prosthetic aortic cardiac valve. VISUALIZED UPPER ABDOMEN:No adrenal masses. Enlarged and hypodense liver. OSSEOUS: No significant osseous lesions.No fractures.. IMPRESSION: 1. There is an abnormal 1.7 x 1.6 cm focal ground-glass nodular infiltrate in the right upper lobe wh ich requires close follow-up to rule out malignancy. No other focal lung findings. No pleural effus ions nor obvious intrathoracic adenopathy. Appropriate referral recommended. 2. Hepatomegaly and hepatic steatosis. Sternotomy. Prosthetic aortic valve. RADIATION DOSE DELIVERED: 694.64mGy.cm Total DLP DATA REPOSITORY: All CT scans at this facility are submitted to the National Radiology Data Registry (NRDR) Dose Index Registry (DIR) with the [employer] (ACR). RADIATION OPTIMIZATION: All CT scans at this facility use at least one of these dose optimization te chniques: automated exposure control; mA and/or kV adjustment per patient size (includes targeted exa ms where dose is matched to clinical indication); or iterative reconstruction.
== END 2023-03-27 01:30 ==
LOC: DI 01:13
PROVIDERS: PCP Family Medicine; Visit Provider Family Medicine
DX: R91.1 Solitary pulmonary nodule (principal); K76.0 Fatty (change of) liver, not elsewhere classified; Z95.2 Presence of prosthetic heart valve; Z12.2 Encounter for screening for malignant neoplasm of respiratory organs; F17.210 Nicotine dependence, cigarettes, uncomplicated
CPT/HCPCS: 71250

== ENCOUNTER 2023-03-30 02:59 | Outpatient (CLI) | payer MEDICARE, SELFPAY ==
--- NOTE | 2023-03-30 | DI.MRI_ITS ---
Exam(s) MR LOWER JOINT LT WO EXAM: MR LOWER JOINT LT WO CLINICAL HISTORY: PAIN LEFT KNEE [id number]. TECHNIQUE: Multiplanar multisequence MRI was performed. COMPARISON: Exam was interpreted without benefit of comparison plain films. FINDINGS: BONES: There is no fracture or contusion pattern. There is a small area of high signal in the media l tibial plateau medially, adjacent to the meniscus, consistent with degenerative changes. JOINTS: A moderate-sized joint effusion is present. Articular cartilage: Patellofemoral joint: Articular cartilage shows mild thinning without focal def ect. Medial femoral tibial joint: Marked thinning at the medial aspect of the medial tibial plateau, exte nding down to bone. Lateral femoral tibial joint: Articular cartilage is unremarkable. TENDONS: Extensor mechanism: Unremarkable. Medial retinaculum: Unremarkable. Lateral retinaculum: Unremarkable. Popliteus: Unremarkable. MUSCLES: Unremarkable. MENISCI: The medial meniscus is somewhat peripherally displaced, consistent with degenerative changes . There is some intermediate signal in the body, consistent with degenerative changes.. The lateral meniscus is unremarkable. SOFT TISSUES: Small bilobed popliteal cyst. LIGAMENTS: Anterior Cruciate: Unremarkable. Posterior Cruciate: Unremarkable. Medial Collateral:Some surrounding fluid but no focal tear visible. Lateral Collateral: Unremarkable. OTHER: IMPRESSION: Degenerative changes of the medial femoral tibial joint and medial meniscus. No focal meniscal tear. No ligament tear. Small joint effusion and Torres's cyst. DATA REPOSITORY:
== END 2023-03-30 03:19 ==
LOC: DI 02:59
PROVIDERS: PCP Family Medicine; Visit Provider Family Medicine
DX: M17.12 Unilateral primary osteoarthritis, left knee
CPT/HCPCS: 73721

== ENCOUNTER → 2023-07-27 10:20 | Outpatient (BNVA) | payer MEDICARE, SELFPAY | PROVIDERS: PCP Family Medicine; Referring Provider Family Medicine; Visit Provider Internal Medicine Cardiovascular Disease | DX: Z95.2 Presence of prosthetic heart valve (principal); I10 Essential (primary) hypertension; F17.210 Nicotine dependence, cigarettes, uncomplicated | CPT/HCPCS: 99213 ==

== ENCOUNTER 2023-10-20 12:16 | Observation (INO) | payer MEDICARE, SELFPAY ==
[2023-10-20] VITALS (15 sets, daily range): BP systolic 108–173; BP diastolic 32–69; PULSE 58–83; RESP 13–19; TEMP 36.4–36.8; O2SAT 97–99
--- NOTE | 2023-10-20 12:15 | RT.EKG_ITS ---
APPROVED REPORT Exam: Resting ECG Reason for Exam: Chest Pain Patient Location: E HR:77 bpm ECG Measurements Heart Rate 77 AXIS AR 193 P 78 QRSd 84 QRS 45 QT 380 T 56 QTc 431 Conclusion Sinus rhythm...normal P axis, V-rate 60- 99 sinus rhythm, normal axis, normal intervals, non ischemic
[2023-10-20 12:56] LABS: Abs Immature Grans 0.24 10^3/uL (0.0-0.06); Absolute Basophil Count 0.11 10^3/uL (0.0-0.2); Absolute Eosinophil Count 0.09 10^3/uL (0.0-0.7); Basophils % 0.4; Eosinophils % 0.3; HCT 38.8 % (36.0-46.0); HGB 12.5 g/dL (11.2-15.7); Immature Grans % 0.8; Lymphocytes % 7.9; MCH 26.7 pg (27.0-33.0); MCHC 32.2 % (32.0-36.0); MCV 83 fL (80-95); Neutrophils % 84.6; Platelet Count 252 10^3/uL (130-400); RBC 4.69 10^6/uL (3.93-5.22); RDW 17.9 % (11.7-14.6)
[2023-10-20 12:59] LABS: Absolute Lymphocyte Count 2.25 10^3/uL (1.2-3.4); Absolute Monocyte Count 1.71 10^3/uL (0.1-0.8); Absolute Neutrophil Count 24.07 10^3/uL (1.2-6.7); WBC 28.45 10^3/uL (4.4-10.8)
[2023-10-20 13:15] LABS: ALT 38 U/L (14-59); AST 18 U/L (15-37); Albumin 3.6 g/dL (3.4-5.0); Alkaline Phosphatase 67 U/L (46-116); Anion Gap 12.6 mmol/L (3-11); BUN 47 mg/dL (7-18); Bilirubin, Total 0.5 mg/dL (0.2-1.0); CO2 22.4 mmol/L (21.0-32.0); CREATININE 1.4 mg/dL (0.55-1.02); Calcium 9.2 mg/dL (8.5-10.1); Chloride 101 mmol/L (98-107); Estimated GFR 38.27 (mL/min/1.73m2); Glucose 202 mg/dL (74-106); Lipase 153 U/L (16-77); NT-proBNP 386 pg/mL (<300); Potassium 3.9 mmol/L (3.5-5.1); Sodium 136 mmol/L (136-145); Total Protein 7.5 g/dL (6.4-8.2); Troponin I < 50 ng/L (< or =60)
[2023-10-20 13:23] LABS: Diff Comment Agrees w/ Instrument; RBC Morphology Normal
[2023-10-20] MEDS: ACETAMINOPHEN 1,000 MG/100 ML BTL 400 MG IVPB (13:23)
[2023-10-20] MEDS: Normal Saline 500 ML IV ×2 (13:25→18:11)
[2023-10-20] MEDS: FAMOTIDINE 20 MG in Normal Saline 100 ML 400 MG IVPB (13:25)
[2023-10-20 13:34] LABS: Lactate 1.4 mmol/L (0.6-1.4)
[2023-10-20 13:37] LABS: COVID-19 PCR Negative (Negative); Influenza A PCR Negative (Negative); Influenza B PCR Negative (Negative); RSV PCR Negative (Negative)
[2023-10-20 13:42] LABS: Source Nasopharynx
[2023-10-20] MEDS: Omnipaque 350 MG/ML 100 ML BTL IJ (14:08)
[2023-10-20 14:09] LABS: Procalcitonin < 0.1 ng/mL
[2023-10-20] MEDS: Normal Saline - Diluent 50 ML VIAL IJ (14:09)
--- NOTE | 2023-10-20 14:20 | DI.CT_ITS ---
Exam(s) CT CHEST/ABD/PEL W EXAM: CT CHEST/ABD/PEL W CLINICAL HISTORY: chest pain radiating back. TECHNIQUE: Imaging Protocol: Axial computed tomography images with coronal and sagittal reformatted images were created and reviewed CONTRAST MATERIAL: Intravenous: Omnipaque 350 Contrast volume:100 ml Oral: no COMPARISON: CT CT CHEST WO from 03/27/2023 FINDINGS: CHEST: Pulmonary arteries: No gross evidence of pulmonary emboli. Tracheobronchial tree: Patent where visualized. Pulmonary parenchyma: Mild interval increase in size of previously noted ground-glass infiltrate, now measuring 1.9 cm compared to 1.7 on the prior exam. Pleura: No effusion or pneumothorax. Lymph nodes: Within normal limits. Aorta: Thoracic portion non-dilated. Moderate to severe calcification Heart: Aortic valve prosthesis. Mitral annulus heavily classified. Mild coronary artery calcifica tions. Heart size normal. No pericardial effusion. Bones: Unremarkable for age. No lytic or blastic lesions.No compression fractures. Soft tissues: Unremarkable. ABDOMEN and PELVIS: Liver: Hepatic steatosis. No measurable mass. Gallbladder and biliary tract: No evidence of stones or wall thickening. No biliary dilatation. Pancreas: Normal density, no abnormal calcifications or inflammatory process. Spleen: Normal. Kidneys: Normal size, contour and axis. No radiodense stones. No obstructive uropathy. No suspicious masses seen. Adrenal glands: No masses seen. Aorta: Abdominal portion non-dilated. Heavily calcified. Branch vessels heavily calcified. Lymph nodes: Within normal limits. Soft tissues: Unremarkable. Bladder: Unremarkable. Bowel: Diverticulosis. No evidence of diverticulitis. Small bowel unremarkable. Appendix normal. Peritoneal cavity: No ascites. No focal collection. No mesenteric inflammatory response. Bones: Unremarkable for age. Reproductive organs: Within normal limits. IMPRESSION: No acute abnormality in the chest, abdomen or pelvis. Severe atherosclerotic changes. Mild interval increase in size of previously noted ground-glass infiltrate in the right upper lobe. Consider follow-up in 6 months. RADIATION DOSE DELIVERED: 1,452.21mGy.cm Total DLP DATA REPOSITORY: All CT scans at this facility are submitted to the National Radiology Data Registry (NRDR) Dose Index Registry (DIR) with the [employer] (ACR). RADIATION OPTIMIZATION: All CT scans at this facility use at least one of these dose optimization te chniques: automated exposure control; mA and/or kV adjustment per patient size (includes targeted exa ms where dose is matched to clinical indication); or iterative reconstruction.
--- NOTE | 2023-10-20 15:00 | DI.US_ITS ---
Exam(s) US ABDOMEN LIMITED EXAM: US ABDOMEN LIMITED CLINICAL HISTORY: RUQ pain TECHNIQUE: Ultrasound abdomen performed using standard protocol. COMPARISON: No exams were available for comparison FINDINGS: LIVER: Enlarged at 18.1 cm in length. Increased echogenicity consistent with hepatic steatosis. Pos terior portions of the liver were difficult to visualize. No focal liver lesions are seen. GALLBLADDER: No evidence of cholelithiasis. No evidence of wall thickening. No pericholecystic fluid identified. WHITE'S SIGN: Negative. BILIARY SYSTEM: No intrahepatic or extrahepatic biliary ductal dilation. Right kidney: No evidence of renal calculi. No evidence of hydronephrosis. No fissure renal mass umesh ntified. Small renal cysts. PANCREAS: Normal where visualized. ABDOMINAL AORTA AND IVC: Visualized portions normal caliber. ASCITES: None seen. IMPRESSION: Hepatic steatosis. Normal appearing gallbladder. DATA REPOSITORY:
[2023-10-20 15:25] LABS: Bilirubin Negative (Negative); Blood Negative (Negative); Clarity Clear (Clear); Glucose Negative (Negative); Ketones Negative (Negative); Leukocyte Esterase Negative (Negative); Nitrite Negative (Negative); Specific Gravity <= 1.005 (1.005-1.025); Urobilinogen 0.2 mg/dL (Up to 0.2); pH 5.5 (5-8)
--- NOTE | 2023-10-20 15:50 | ED.GENADUL_ITS ---
HPI General Date/Time Provider Initiated Documentation: 10/20/23 12:40 . HPI Narrative: This 78-year-old female with history of bovine aortic valve replacement, hypertension presents with chest and abdominal pain that started about 12:00 today. Has had this intermittently in the past. Denies any fever or chills. Denies radiation of pain. Denies any associated nausea, vomiting, diaphoresis. States this is the worst pain that she is ever experienced. Denies any palpitations, recent flights, surgeries, long drives. Does report she has had diarrhea for the past 3 weeks. Denies recent antibiotics. Has had some intermittent pain in her epigastrium. Denies any blood in her stool. Denies history of diarrhea in the past. Describes the diarrhea as watery and brown. Denies any known sick contacts. Related Data Home Medications Medication Instructions Recorded Confirmed epinephrine 0.3 mg/0.3 mL 0.3 mg IM PRN PRN 12/31/20 10/20/23 injection, auto-injector metoprolol tartrate 25 mg tablet 25 mg PO DAILY 12/31/20 10/20/23 aspirin 81 mg tablet,delayed 81 mg PO DAILY 07/28/22 10/20/23 release (Adult Aspirin Regimen) albuterol sulfate 90 mcg/actuation 2 puff inhalation Q6H PRN 09/11/22 10/20/23 aerosol inhaler naproxen 500 mg tablet 500 mg PO BID PRN #14 tabs 12/18/22 10/20/23 pantoprazole 40 mg tablet,delayed See Rx Instructions .Route 10/18/23 10/20/23 release .COMPLEX #90 tabs blood sugar diagnostic (OneTouch 10/20/23 10/20/23 Verio test strips) escitalopram oxalate 20 mg tablet 20 mg PO DAILY 10/20/23 10/20/23 lisinopril 20 1 tab PO DAILY 10/20/23 10/20/23 mg-hydrochlorothiazide 25 mg tablet Previous Rx's Medication Instructions Recorded naproxen 500 mg tablet 500 mg PO BID PRN #14 tabs 12/18/22 pantoprazole 40 mg tablet,delayed See Rx Instructions .Route 10/18/23 release .COMPLEX #90 tabs Allergies Allergy/AdvReac Type Severity Reaction Status Date / Time hornet venom Allergy Severe Anaphylaxis Verified 07/27/23 10:37 latex Allergy RASH Verified 07/27/23 10:37 adhesive tape AdvReac Skin Rash Verified 07/27/23 10:37 General Stated Complaint: Chest Pain JOSE JUAN: 2 Course Vital Signs Vital signs: Vital Signs Temperature 36.4 C L 10/20/23 12:20 Pulse 83 10/20/23 12:20 Respiratory Rate 18 10/20/23 12:20 Blood Pressure 173/40 H 10/20/23 12:20 Pulse Oximetry 99 10/20/23 12:20 Temperature 36.4 C L 10/20/23 12:20 Temperature Source Oral 10/20/23 12:20 Pulse 83 10/20/23 12:20 Respiratory Rate 16 10/20/23 13:15 Respiratory Effort Normal 10/20/23 13:15 Respiratory Depth Normal 10/20/23 13:15 Respiratory Pattern Normal 10/20/23 13:15 Blood Pressure 173/40 H 10/20/23 12:20 Blood Pressure Position Supine 10/20/23 12:20 Pulse Oximetry 99 10/20/23 12:20 Oxygen Delivery Method Room Air 10/20/23 12:20 Oxygen Flow Rate 0 10/20/23 12:20 Pain Level 8 10/20/23 12:20 Lab/Test Results Lab/Test Results: 10/20/23 13:59 Blood Blood Culture - Pending 10/20/23 13:53 Blood Blood Culture - Pending Laboratory Tests Range/Units 10/20/23 10/20/23 10/20/23 12:37 12:47 13:30 WBC (4.4-10.8) 10^3/uL 28.45 H* RBC (3.93-5.22) 10^6/uL 4.69 Hgb (11.2-15.7) g/dL 12.5 Hct (36.0-46.0) % 38.8 MCV (80-95) fL 83 MCH (27.0-33.0) pg 26.7 L MCHC (32.0-36.0) % 32.2 RDW (11.7-14.6) % 17.9 H Plt Count (130-400) 10^3/uL 252 MPV (8.0-11.0) fL 11.0 Immature Gran % 0.8 Neutrophils % 84.6 Lymphocytes % 7.9 Monocytes % 6.0 Eosinophils % 0.3 Basophils % 0.4 Nucleated RBC % (0.0-0.3) % 0.0 Absolute Neutrophils (1.2-6.7) 10^3/uL 24.07 H Absolute Lymphocytes (1.2-3.4) 10^3/uL 2.25 Absolute Monocytes (0.1-0.8) 10^3/uL 1.71 H Absolute Eosinophils (0.0-0.7) 10^3/uL 0.09 Absolute Basophils (0.0-0.2) 10^3/uL 0.11 RBC Morphology Normal VBG Lactate (0.6-1.4) mmol/L 1.4 Sodium (136-145) mmol/L 136 Potassium (3.5-5.1) mmol/L 3.9 Chloride (98-107) mmol/L 101 Carbon Dioxide (21.0-32.0) mmol/L 22.4 Anion Gap (3-11) mmol/L 12.6 H BUN (7-18) mg/dL 47 H Creatinine (0.55-1.02) mg/dL 1.4 H Est GFR (CKD-EPI 2020) (mL/min/1.73m2) 38.27 Glucose (74-106) mg/dL 202 H Calcium (8.5-10.1) mg/dL 9.2 Total Bilirubin (0.2-1.0) mg/dL 0.5 AST (15-37) U/L 18 ALT (14-59) U/L 38 Alkaline Phosphatase (46-116) U/L 67 Troponin I (< or =60) ng/L < 50 NT-Pro-B Natriuret Pep (<300) pg/mL 386 H Total Protein (6.4-8.2) g/dL 7.5 Albumin (3.4-5.0) g/dL 3.6 Lipase (16-77) U/L 153 H Procalcitonin ng/mL < 0.1 Urine Color (Yellow) Urine Clarity (Clear) Urine pH (5-8) Ur Specific [place] (1.005-1.025) Urine Protein (Negative) mg/dL Urine Ketones (Negative) mg/dL Urine Blood (Negative) Urine Nitrite (Negative) Urine Bilirubin (Negative) Urine Urobilinogen (Up to 0.2) mg/dL Ur Leukocyte Esterase (Negative) Urine Glucose (Negative) mg/dL COVID-19 Source Nasopharynx SARS-CoV-2 (PCR) (Negative) Negative Influenza Type A (PCR) (Negative) Negative Influenza Type B (PCR) (Negative) Negative RSV (PCR) (Negative) Negative Range/Units 10/20/23 15:12 WBC (4.4-10.8) 10^3/uL RBC (3.93-5.22) 10^6/uL Hgb (11.2-15.7) g/dL Hct (36.0-46.0) % MCV (80-95) fL MCH (27.0-33.0) pg MCHC (32.0-36.0) % RDW (11.7-14.6) % Plt Count (130-400) 10^3/uL MPV (8.0-11.0) fL Immature Gran % Neutrophils % Lymphocytes % Monocytes % Eosinophils % Basophils % Nucleated RBC % (0.0-0.3) % Absolute Neutrophils (1.2-6.7) 10^3/uL Absolute Lymphocytes (1.2-3.4) 10^3/uL Absolute Monocytes (0.1-0.8) 10^3/uL Absolute Eosinophils (0.0-0.7) 10^3/uL Absolute Basophils (0.0-0.2) 10^3/uL RBC Morphology VBG Lactate (0.6-1.4) mmol/L Sodium (136-145) mmol/L Potassium (3.5-5.1) mmol/L Chloride (98-107) mmol/L Carbon Dioxide (21.0-32.0) mmol/L Anion Gap (3-11) mmol/L BUN (7-18) mg/dL Creatinine (0.55-1.02) mg/dL Est GFR (CKD-EPI 2020) (mL/min/1.73m2) Glucose (74-106) mg/dL Calcium (8.5-10.1) mg/dL Total Bilirubin (0.2-1.0) mg/dL AST (15-37) U/L ALT (14-59) U/L Alkaline Phosphatase (46-116) U/L Troponin I (< or =60) ng/L NT-Pro-B Natriuret Pep (<300) pg/mL Total Protein (6.4-8.2) g/dL Albumin (3.4-5.0) g/dL Lipase (16-77) U/L Procalcitonin ng/mL Urine Color (Yellow) Yellow Urine Clarity (Clear) Clear Urine pH (5-8) 5.5 Ur Specific [place] (1.005-1.025) <= 1.005 Urine Protein (Negative) mg/dL Negative Urine Ketones (Negative) mg/dL Negative Urine Blood (Negative) Negative Urine Nitrite (Negative) Negative Urine Bilirubin (Negative) Negative Urine Urobilinogen (Up to 0.2) mg/dL 0.2 Ur Leukocyte Esterase (Negative) Negative Urine Glucose (Negative) mg/dL Negative COVID-19 Source SARS-CoV-2 (PCR) (Negative) Influenza Type A (PCR) (Negative) Influenza Type B (PCR) (Negative) RSV (PCR) (Negative) Medical Decision Making 78-year-old female presenting with abdominal and chest pain, leukocytosis, 28,000, 25% neutrophils CT abdomen and pelvis, chest shows evidence of a nodular infiltrate on the right that is not significantly changed from prior At this time, she does have an elevated lipase but I do not see evidence of significant acute abnormality, ultrasound was ordered which was also per ultrasound without acute abnormality aside from fatty liver Given patient's age and leukocytosis I think she would benefit from admission to the hospital at this time for observation CRP elevated at 5.9, amylase within normal limits, lipase 153 through Low suspicion for of cardiac etiology of patient's complaints, no recent cath with only mild disease in November 06, initial troponin negative, pending repeat troponin Patient agreeable to admission to hospital at this time, full CODE STATUS, after discussion with hospitalist will hold off on antibiotic administration Pain-free at time of admission Quality:SDOH Health Related Social Needs: No Data to Display PFSH All Active Problems (Updated 10/21/23 @ 08:12 by ELOISA Chaney) Leukocytosis (Acute) S/P AVR (aortic valve replacement) (Chronic ~03/20/17) Depression (Chronic) Diarrhea (Acute) Chronic GERD (Acute) Epigastric pain (Chronic) Medical History (Updated 10/21/23 @ 08:12 by ELOISA Chaney) Tubular adenoma of colon (~11/06/22) Abdominal bloating Chronic nausea Chest pain Overweight Family history of colon cancer Rheumatoid arthritis Nicotine dependence Motion sickness Low back pain [place] lesion of lung Aortic stenosis HTN (hypertension) Surgical History (Updated 10/20/23 @ 19:05 by Yumiko Cavazos NP) History of colonoscopy with polypectomy (~11/06/22) History of colonoscopy 08/26/2016 @[facility] 11/19/2009 @[facility] with polypectomies= Hyperplastic History of tonsillectomy Social History Smoking/Tobacco Use Status: Current every day Tobacco Type: cigarettes Years smoked: 60 Smoking risk assessment performed?: Yes Alcohol Intake: current Alcohol Intake frequency: holidays/special occasions only Alcohol type: beer Drug use: Never Substance use type: does not use Housing: house Do you feel safe at home: Yes Do you feel safe in your relationship?: Yes Discharge Plan Disposition Patient Disposition: Admit to [facility] Condition: Stable Discharge Details Clinical Impression: Diarrhea, Leukocytosis, Epigastric pain Admit Date/Time: 10/20/23 16:05 Admit Provider: Bettie Khoury Attending Provider: Bettie Khoury Primary Care Provider: Babar Mclaughlin ED Provider: Kristi Jose Discharge Data Discharge Date/Time-TO BE ENTERED AT DEPARTURE: 10/20/23 16:37
[2023-10-20 15:59] LABS: Amylase 76 U/L (25-115)
[2023-10-20 16:02] LABS: BE (Venous) -5 mmol/L (-2-3); HCO3 (Venous) 20 mmol/L (23-28); O2 Sat (Venous) 90 %; TCO2 (Venous) 19 mmol/L (24-29); pCO2 (Venous) 36 mmHg (41-51); pH (Venous) 7.36 (7.31-7.41); pO2 (Venous) 57 mmHg
[2023-10-20 16:23] LABS: Troponin I < 50 ng/L (< or =60)
[2023-10-20] MEDS: Lactated Ringers 1,000 ML 100 ML IV (17:55)
--- NOTE | 2023-10-20 18:27 | W.PM.HP.N ---
Date of service: 10/20/23 Time of Service: 18:27 Assessment and Plan Assessment and plan (1) Leukocytosis: Status: Acute Assessment and plan: WBC 28,000 UNK source procal neg Hold abx No steroids BC pending Afebrile Normotensive, no tachycardia (2) Diarrhea: Status: Acute Assessment and plan: C/O diarrhea for 3 weeks Stool sample for bacteria and cdiff pending (3) Chronic GERD: Status: Acute Assessment and plan: Chronic GERD Start Protonix 40 mg IV BID Start Carafate 1 gm AC HS Clear liquid diet Trop neg x 2 (4) Epigastric pain: Status: Chronic Assessment and plan: As above (5) HTN (hypertension): Assessment and plan: Stable continue home meds; metoprolol, lisinopril Montitor BP Qualifiers: Hypertension type: primary hypertension Qualified Code(s): I10 - Essential (primary) hypertension (6) Depression: Status: Chronic Assessment and plan: Stable continue escitalopram (7) S/P AVR (aortic valve replacement): Status: Chronic Assessment and plan: Stable Discussed with Dr Khoury History of Present Illness History of Present Illness Chief Complaint: Abdominal pain Narrative: This is a 78 year old female patient with past medical history significant for but not limited to bovine aortic valve replacement, hypertension and GERD who presented to the [facility] ED for evaluation of sudden onset of abdominal pain around noon today. Patient reported she has had this intermittently in the past. She denied fever or chills, no radiation of pain, no nausea, vomiting, diaphoresis. Patient does report having diarrhea for three weeks, denies bloody stools, no recent antibiotics. Patient told ED staff this the worst pain that she has ever experienced. Patient also denied chest pain, palpitations, recent air travel, surgeries, or long drives. Denies recent antibiotics. Has had some intermittent pain in her epigastrium. Denies any blood in her stool. Denies any known sick contacts. Labs in the ED significant for leukocytosis, WBC 28,000 Review of Systems All systems reviewed & are unremarkable except as noted in HPI and below PFSH All Active Problems (Updated 10/20/23 @ 19:07 by Yumiko Cavazos NP) Leukocytosis (Acute) S/P AVR (aortic valve replacement) (Chronic ~03/20/17) Depression (Chronic) Diarrhea (Acute) Chronic GERD (Acute) Epigastric pain (Chronic) Medical History (Updated 10/20/23 @ 19:07 by Yumiko Cavazos NP) Tubular adenoma of colon (~11/06/22) Abdominal bloating Chronic nausea Chest pain Overweight Family history of colon cancer Rheumatoid arthritis Nicotine dependence Motion sickness Low back pain [place] lesion of lung Aortic stenosis HTN (hypertension) Surgical History (Updated 10/20/23 @ 19:05 by Yumiko Cavazos NP) History of colonoscopy with polypectomy (~11/06/22) History of colonoscopy 08/26/2016 @[facility] 11/19/2009 @[facility] with polypectomies= Hyperplastic History of tonsillectomy Social History Smoking/Tobacco Use Status: Current every day Tobacco Type: cigarettes Years smoked: 60 Smoking risk assessment performed?: Yes Alcohol Intake: current Alcohol Intake frequency: holidays/special occasions only Alcohol type: beer Drug use: Never Substance use type: does not use Housing: house Do you feel safe at home: Yes Do you feel safe in your relationship?: Yes Meds Allergies and Home Medications Allergies Allergy/AdvReac Type Severity Reaction Status Date / Time hornet venom Allergy Severe Anaphylaxis Verified 07/27/23 10:37 latex Allergy RASH Verified 07/27/23 10:37 adhesive tape AdvReac Skin Rash Verified 07/27/23 10:37 Home Medications Medication Instructions Recorded Confirmed Type epinephrine 0.3 mg/0.3 mL 0.3 mg IM PRN PRN 12/31/20 10/20/23 History injection, auto-injector metoprolol tartrate 25 mg tablet 25 mg PO DAILY 12/31/20 10/20/23 History aspirin 81 mg tablet,delayed 81 mg PO DAILY 07/28/22 10/20/23 History release (Adult Aspirin Regimen) albuterol sulfate 90 mcg/actuation 2 puff inhalation Q6H PRN 09/11/22 10/20/23 History aerosol inhaler naproxen 500 mg tablet 500 mg PO BID PRN #14 tabs 12/18/22 10/20/23 Rx pantoprazole 40 mg tablet,delayed See Rx Instructions .Route 10/18/23 10/20/23 Rx release .COMPLEX #90 tabs escitalopram oxalate 20 mg tablet 20 mg PO DAILY 10/20/23 10/20/23 History lisinopril 20 1 tab PO DAILY 10/20/23 10/20/23 History mg-hydrochlorothiazide 25 mg tablet Exam Const General: cooperative, comfortable and no acute distress Nutritional Appearance: average body habitus Orientation: alert, awake and oriented x3 [facility] Head: normal to inspection, normocephalic and atraumatic Mouth: oral mucosae normal Chest Chest: normal inspection of the chest Resp Effort & Inspection: normal respiratory effort Cardio Rate: regular rate Rhythm: regular rhythm GI Inspection: normal to inspection Skin General skin exam: no rashes or lesions noted Neuro General: patient alert, patient awake, patient oriented x3, moves all extremities and no focal motor deficits Cognition: normal cognition Speech: speech normal Gait: normal gait Motor: muscle tone normal throughout Extrem General: normal to inspection, full ROM and no pedal edema Results Labs 10/20/23 12:37 10/20/23 12:37 Labs: Laboratory Results - last 24 hr 10/20/23 10/20/23 10/20/23 12:37 12:47 13:30 WBC 28.45 H* RBC 4.69 Hgb 12.5 Hct 38.8 MCV 83 MCH 26.7 L MCHC 32.2 RDW 17.9 H Plt Count 252 MPV 11.0 Immature Gran % 0.8 Neutrophils % 84.6 Lymphocytes % 7.9 Monocytes % 6.0 Eosinophils % 0.3 Basophils % 0.4 Nucleated RBC % 0.0 Absolute Neutrophils 24.07 H Absolute Lymphocytes 2.25 Absolute Monocytes 1.71 H Absolute Eosinophils 0.09 Absolute Basophils 0.11 RBC Morphology Normal VBG pH VBG pCO2 VBG pO2 VBG HCO3 VBG Total CO2 VBG O2 Saturation VBG Base Excess VBG Lactate 1.4 Sodium 136 Potassium 3.9 Chloride 101 Carbon Dioxide 22.4 Anion Gap 12.6 H BUN 47 H Creatinine 1.4 H Est GFR (CKD-EPI 2020) 38.27 Glucose 202 H Calcium 9.2 Total Bilirubin 0.5 AST 18 ALT 38 Alkaline Phosphatase 67 Troponin I < 50 C-Reactive Protein 5.90 H NT-Pro-B Natriuret Pep 386 H Total Protein 7.5 Albumin 3.6 Amylase 76 Lipase 153 H Procalcitonin < 0.1 Urine Color Urine Clarity Urine pH Ur Specific [place] Urine Protein Urine Ketones Urine Blood Urine Nitrite Urine Bilirubin Urine Urobilinogen Ur Leukocyte Esterase Urine Glucose COVID-19 Source Nasopharynx SARS-CoV-2 (PCR) Negative Influenza Type A (PCR) Negative Influenza Type B (PCR) Negative RSV (PCR) Negative 10/20/23 10/20/23 15:12 15:55 WBC RBC Hgb Hct MCV MCH MCHC RDW Plt Count MPV Immature Gran % Neutrophils % Lymphocytes % Monocytes % Eosinophils % Basophils % Nucleated RBC % Absolute Neutrophils Absolute Lymphocytes Absolute Monocytes Absolute Eosinophils Absolute Basophils RBC Morphology VBG pH 7.36 VBG pCO2 36 L VBG pO2 57 VBG HCO3 20 L VBG Total CO2 19 L VBG O2 Saturation 90 VBG Base Excess -5 L VBG Lactate Sodium Potassium Chloride Carbon Dioxide Anion Gap BUN Creatinine Est GFR (CKD-EPI 2020) Glucose Calcium Total Bilirubin AST ALT Alkaline Phosphatase Troponin I < 50 C-Reactive Protein NT-Pro-B Natriuret Pep Total Protein Albumin Amylase Lipase Procalcitonin Urine Color Yellow Urine Clarity Clear Urine pH 5.5 Ur Specific [place] <= 1.005 Urine Protein Negative Urine Ketones Negative Urine Blood Negative Urine Nitrite Negative Urine Bilirubin Negative Urine Urobilinogen 0.2 Ur Leukocyte Esterase Negative Urine Glucose Negative COVID-19 Source SARS-CoV-2 (PCR) Influenza Type A (PCR) Influenza Type B (PCR) RSV (PCR) Last Vital Signs Temp 36.4 C L 10/20/23 16:45 Pulse 76 10/20/23 16:45 Resp 16 10/20/23 16:45 BP 118/69 10/20/23 16:45 Pulse Ox 97 10/20/23 16:45 Time Spent Time spent with Patient: 40-54 minutes Time was spent: preparing to see the patient(eg.review tests), obtaining and/or reviewing separately otained hiistory, ordering medications,tests, procedures, referring, communicating with other health manager home healthcare, indepentently interpreting results, counseling the patient and care coordination
[2023-10-20] MEDS: Normal Saline Flush 10 ML SYR IVP (20:35)
[2023-10-20] MEDS: Pantoprazole 40 MG VIAL IVP (20:35)
[2023-10-20] MEDS: Sucralfate 1 GM TAB PO (21:30)
[2023-10-20 23:02] LABS: TSH (W/Ref FT4) 2.02 uIU/mL (0.36-3.74)
--- NOTE | 2023-10-21 | DI.RAD_ITS ---
Exam(s) XR SHOULDER LT COMPLETE 2+V EXAM: XR SHOULDER LT COMPLETE 2+V CLINICAL HISTORY: pain to left shoulder. TECHNIQUE: 2D digital imaging was performed. Three views. COMPARISON: No exams were available for comparison FINDINGS: BONES: No acute fracture is present. No bony destructive lesion is seen. Spurring at greater tuberos ity. Degenerative changes of the glenoid with inferior spurring. JOINTS: No dislocation present. Spurring at AC joint and acromion. Glenohumeral joint space is main tained. SOFT TISSUE: Normal. IMPRESSION: Moderate degenerative changes. DATA REPOSITORY: RADIATION DOSE DELIVERED:
[2023-10-21] MEDS: Acetaminophen 325 MG TAB PO ×3 (01:17→21:14)
[2023-10-21 03:15] VITALS: BP 103/51; PULSE 66; RESP 18; TEMP 36.5; O2SAT 97
[2023-10-21] MEDS: Lactated Ringers 1,000 ML 100 ML IV (04:08)
[2023-10-21 05:12] LABS: C Diff PCR Negative (Negative)
[2023-10-21 06:55] LABS: Abs Immature Grans 0.19 10^3/uL (0.0-0.06); Absolute Basophil Count 0.07 10^3/uL (0.0-0.2); Absolute Eosinophil Count 0.17 10^3/uL (0.0-0.7); Basophils % 0.3; Eosinophils % 0.7; HGB 10.5 g/dL (11.2-15.7); Immature Grans % 0.8; Lymphocytes % 10.5; MCH 26.4 pg (27.0-33.0); MCHC 31.8 % (32.0-36.0); MCV 83 fL (80-95); MPV 11.2 fL (8.0-11.0); Monocytes % 7.5; Neutrophils % 80.2; Platelet Count 194 10^3/uL (130-400); RBC 3.97 10^6/uL (3.93-5.22); RDW 17.7 % (11.7-14.6); RDW-SD 53.9 fL
[2023-10-21 07:06] LABS: Absolute Lymphocyte Count 2.53 10^3/uL (1.2-3.4); Absolute Monocyte Count 1.81 10^3/uL (0.1-0.8); Absolute Neutrophil Count 19.33 10^3/uL (1.2-6.7)
[2023-10-21 07:15] LABS: Diff Comment Diff Reviewed; RBC Morphology Normal
[2023-10-21 07:26] LABS: Anion Gap 10.5 mmol/L (3-11); BUN 23 mg/dL (7-18); C-Reactive Protein 6.93 mg/dL (<or=0.5); CO2 22.5 mmol/L (21.0-32.0); CREATININE 0.8 mg/dL (0.55-1.02); Calcium 8.3 mg/dL (8.5-10.1); Chloride 107 mmol/L (98-107); Glucose 103 mg/dL (74-106); Potassium 3.7 mmol/L (3.5-5.1); Sodium 140 mmol/L (136-145)
[2023-10-21] MEDS: Pantoprazole 40 MG VIAL IVP ×2 (07:40→19:45)
[2023-10-21] MEDS: Normal Saline Flush 10 ML SYR IVP ×2 (07:40→19:45)
[2023-10-21] MEDS: Sucralfate 1 GM TAB PO ×4 (07:40→21:15)
[2023-10-21 07:47] VITALS: BP 115/68; PULSE 76; RESP 20; TEMP 36.6; O2SAT 97
[2023-10-21 08:17] LABS: Lipase 98 U/L (16-77)
[2023-10-21] MEDS: Metoprolol 25 MG TAB PO (09:08)
[2023-10-21] MEDS: Lisinopril 20 MG TAB PO (09:09)
[2023-10-21] MEDS: Escitalopram 20 MG TAB PO (09:09)
--- NOTE | 2023-10-21 10:24 | INITIAL_ITS ---
Date of service: 10/21/23 Time of Service: 10:24 SDOH(Care Management) Screening Will the Patient Participate in the Screening?: Yes Do you worry about having a steady place to live?: no Problems where you live: no known problems In the past 12 months, have you had to go without electric, gas, oil or water in your home?: no Have you or anyone in your house had to go without enough food to eat?: no Has lack of transportation kept you from medical appointments or from doing things needed for daily living?: no Has anyone in your support network made you feel unsafe for any reason?: no PFSH All Active Problems Chest pain of uncertain etiology (Acute) Pancreatitis (Chronic) Fatigue (Acute) Change in voice (Acute) Rotator cuff tear, right (Acute) Arthritis of right glenohumeral joint (Acute) Arthropathy of left shoulder (Acute) Left shoulder pain (Acute) Leukocytosis (Acute) Medical History Pain in buttock Nodule of right lung Left knee pain Depressive disorder Abnormal CT scan, chest Change in skin mole Bilateral carotid artery stenosis Aortic valve stenosis, nonrheumatic Aneurysm Abnormal radiograph Chronic GERD Depression Tubular adenoma of colon (~11/06/22) Abdominal bloating Chronic nausea Chest pain Overweight Family history of colon cancer Rheumatoid arthritis Nicotine dependence Motion sickness Low back pain [place] lesion of lung Aortic stenosis HTN (hypertension) Surgical History History of throat surgery cyst removed S/P AVR (aortic valve replacement) (~03/20/17) History of colonoscopy with polypectomy (~11/06/22) History of colonoscopy 08/26/2016 @[facility] 11/19/2009 @[facility] with polypectomies= Hyperplastic History of tonsillectomy Family History Mother Cancer Father Stroke Cancer Social History Smoking/Tobacco Use Status: Current every day Tobacco Type: cigarettes Years smoked: 60 Smoking risk assessment performed?: Yes Alcohol Intake: current Alcohol Intake frequency: holidays/special occasions only Alcohol type: beer Drug use: Never Substance use type: does not use Housing: house Do you feel safe at home: Yes Do you feel safe in your relationship?: Yes
[2023-10-21 11:20] VITALS: BP 102/62; PULSE 53; RESP 18; O2SAT 97
[2023-10-21 11:56] LABS: Lab Add On Test COMPLETED
[2023-10-21 12:01] LABS: Lab Add On Test DONE
[2023-10-21 12:10] LABS: HCT 32.2 % (36.0-46.0); HGB 10.4 g/dL (11.2-15.7)
[2023-10-21 13:04] LABS: ALT 28 U/L (14-59); AST 15 U/L (15-37); Albumin 2.8 g/dL (3.4-5.0); Alkaline Phosphatase 49 U/L (46-116); Bilirubin, Direct 0.1 mg/dL (0.0-0.2); Bilirubin, Total 0.5 mg/dL (0.2-1.0); Total Protein 6.1 g/dL (6.4-8.2)
--- NOTE | 2023-10-21 13:42 | PHA.REVIEW2 ---
Pharmacy Admission Review Admission Clinical Review Admission Pharmacy Review: Leukocytosis (Acute) Diarrhea (Acute) Chronic GERD (Acute) hornet venom Allergy (Severe, Verified 07/27/23 10:37) Anaphylaxis latex Allergy (Verified 07/27/23 10:37) RASH adhesive tape Adverse Reaction (Verified 07/27/23 10:37) Skin Rash Resuscitation Status Full Code Height 5 ft 3 in Weight 85.6 kg Pharmacy Admission Review Renal Dosing Renal Dosing: BUN 23 mg/dL (7-18) H 10/21/23 05:46 Creatinine 0.8 mg/dL (0.55-1.02) 10/21/23 05:46 Medications needing adjustments: Reviewed (CrCl 47.29 mL/min) Anticoagulation Anticoagulation: Hgb 10.4 g/dL (11.2-15.7) L 10/21/23 11:55 Hct 32.2 % (36.0-46.0) L 10/21/23 11:55 Plt Count 194 10^3/uL (130-400) 10/21/23 05:46 Creatinine 0.8 mg/dL (0.55-1.02) 10/21/23 05:46 DVT Prophylaxis: Intervened (None at the moment, reached out to provider who is aware and will put in order if necessary) Relevant Labs Relevant Labs: Sodium 140 mmol/L (136-145) 10/21/23 05:46 Potassium 3.7 mmol/L (3.5-5.1) 10/21/23 05:46 Chloride 107 mmol/L (98-107) 10/21/23 05:46 Magnesium 2.0 mg/dL (1.8-2.4) 10/21/23 05:46 C-Reactive Protein 6.93 mg/dL (<or=0.5) H 10/21/23 05:46 Electrolytes, C-Reactive P, ESR: Reviewed (BUN decreased from 47 to 23 and SCr decreased from 1.4 to 0.8. WBC decreased from 28.45 to 24.1. Hgb decreased from 12.5 to 10.4. Blood cultures pending) Cardiac Review Cardiac Review: Troponin I < 50 ng/L (< or =60) 10/20/23 15:55 NT-Pro-B Natriuret Pep 386 pg/mL (<300) H 10/20/23 12:37 BP, HR, EF%: Reviewed (BP WNL, HR 53) QTc Review QTc: Reviewed (EKG interpretation report pending (last EKG was 07/28/22 with QTc of 434)) IV to PO Switch IV Medications: Reviewed (IV Pantoprazole - potentially switch to PO?) Home Meds Home Med List reviewed: Reviewed Relevent Home Meds Not ordered & why?: On home med list but no order: aspirin, Epipen (as needed), and naproxen (as needed) Current Meds Current Medication Order Review: Reviewed Pharmacy Antibiotic Review Relevant Labs: Relevant Labs 10/21/23 10/20/23 10/20/23 05:46 13:30 12:37 C-Reactive Protein 6.93 H 5.90 H Procalcitonin < 0.1
--- NOTE | 2023-10-21 13:51 | PGE_ITS ---
Date of Service Date of service: 10/21/23 Time of Service: 13:51 Assessment and Plan Assessment and plan (1) Leukocytosis: Status: Acute Assessment and plan: WBC decreased to 24,000 UNK source procal neg Hold abx No steroids BC still pending Afebrile Normotensive, no tachycardia (2) Diarrhea: Status: Acute Assessment and plan: C/O diarrhea for 3 weeks Stool sample for bacteria and cdiff pending - now unable to stool (3) Left shoulder pain: Status: Acute Assessment and plan: Patient reports she injured her shoulder ~ 1 mos ago I think I dislocated it. She was seen and given a steroid injection~ 1 week ago. She said it has improved, but continues to be tender. Doubt steroids would increase WBC that much and infection is unlikely after one week and patient experiencing decreased pain; reassuring exam Ortho was consulted: likely rotator cuff issue, recommend left shoulder xrays (done), PT (ordered), follow up outpt with Dr Webb. (4) Chronic GERD: Status: Acute Assessment and plan: Chronic GERD Continue Protonix 40 mg IV BID Continue Carafate 1 gm AC HS Advance to full diet (5) Epigastric pain: Status: Chronic Assessment and plan: As above (6) Depression: Status: Chronic Assessment and plan: Stable continue escitalopram (7) S/P AVR (aortic valve replacement): Status: Chronic Assessment and plan: Stable Discussed with Dr Khoury Subjective Subjective Patient reports: feels better, tolerating a regular diet and afebrile; denies diarrhea, nausea or vomiting Interval history since last seen: Patient states she is feeling better today. She said she forgot to tell us she injured her left shoulder ~ 1 month ago, she had a steroid injection 1 week ago. Pain is minor, but there. Exam Const General: cooperative, comfortable and no acute distress Nutritional Appearance: average body habitus Orientation: alert, awake and oriented x3 HENMT Head: normal to inspection, normocephalic and atraumatic Mouth: oral mucosae normal Chest Chest: normal inspection of the chest Resp Effort & Inspection: normal respiratory effort Cardio Rate: regular rate Rhythm: regular rhythm GI Inspection: normal to inspection Skin General skin exam: no rashes or lesions noted Neuro General: patient alert, patient awake, patient oriented x3, moves all extremities and no focal motor deficits Cognition: normal cognition Speech: speech normal Gait: normal gait Motor: muscle tone normal throughout Extrem General: normal to inspection, full ROM and no pedal edema Left upper extremity: normal to inspection, full ROM, normal capillary refill and shoulder/upper arm Details: inspection abnormal; no edema and joint enlargement noted Shoulder/upper arm images: 2 1. tender to touch 2. tender to touch Objective Last Vital Signs Temp 36.6 C 10/21/23 07:47 Pulse 53 L 10/21/23 11:20 Resp 18 10/21/23 11:20 BP 102/62 10/21/23 11:20 Pulse Ox 97 10/21/23 11:20 Laboratory Results - last 24 hr 10/20/23 10/20/23 10/20/23 12:37 13:30 15:12 WBC RBC Hgb Hct MCV MCH MCHC RDW Plt Count MPV Immature Gran % Neutrophils % Lymphocytes % Monocytes % Eosinophils % Basophils % Nucleated RBC % Absolute Neutrophils Absolute Lymphocytes Absolute Monocytes Absolute Eosinophils Absolute Basophils RBC Morphology VBG pH VBG pCO2 VBG pO2 VBG HCO3 VBG Total CO2 VBG O2 Saturation VBG Base Excess Sodium Potassium Chloride Carbon Dioxide Anion Gap BUN Creatinine Est GFR (CKD-EPI 2020) Glucose Calcium Magnesium Total Bilirubin Conjugated Bilirubin AST ALT Alkaline Phosphatase Troponin I C-Reactive Protein 5.90 H Total Protein Albumin Amylase 76 Lipase Procalcitonin < 0.1 TSH 2.02 Urine Color Yellow Urine Clarity Clear Urine pH 5.5 Ur Specific [place] <= 1.005 Urine Protein Negative Urine Ketones Negative Urine Blood Negative Urine Nitrite Negative Urine Bilirubin Negative Urine Urobilinogen 0.2 Ur Leukocyte Esterase Negative Urine Glucose Negative Stl C.difficile Tox PCR Add-On Test Request 10/20/23 10/20/23 10/21/23 15:55 21:20 04:15 WBC RBC Hgb Hct MCV MCH MCHC RDW Plt Count MPV Immature Gran % Neutrophils % Lymphocytes % Monocytes % Eosinophils % Basophils % Nucleated RBC % Absolute Neutrophils Absolute Lymphocytes Absolute Monocytes Absolute Eosinophils Absolute Basophils RBC Morphology VBG pH 7.36 VBG pCO2 36 L VBG pO2 57 VBG HCO3 20 L VBG Total CO2 19 L VBG O2 Saturation 90 VBG Base Excess -5 L Sodium Potassium Chloride Carbon Dioxide Anion Gap BUN Creatinine Est GFR (CKD-EPI 2020) Glucose Calcium Magnesium Total Bilirubin Conjugated Bilirubin AST ALT Alkaline Phosphatase Troponin I < 50 C-Reactive Protein Total Protein Albumin Amylase Lipase Procalcitonin TSH Urine Color Cancelled Urine Clarity Cancelled Urine pH Cancelled Ur Specific [place] Cancelled Urine Protein Cancelled Urine Ketones Cancelled Urine Blood Cancelled Urine Nitrite Cancelled Urine Bilirubin Cancelled Urine Urobilinogen Cancelled Ur Leukocyte Esterase Cancelled Urine Glucose Cancelled Stl C.difficile Tox PCR Negative Add-On Test Request 10/21/23 10/21/23 10/21/23 05:46 11:55 12:00 WBC 24.10 H RBC 3.97 Hgb 10.5 L D 10.4 L Hct 33.0 L 32.2 L MCV 83 MCH 26.4 L MCHC 31.8 L RDW 17.7 H Plt Count 194 MPV 11.2 H Immature Gran % 0.8 Neutrophils % 80.2 Lymphocytes % 10.5 Monocytes % 7.5 Eosinophils % 0.7 Basophils % 0.3 Nucleated RBC % 0.0 Absolute Neutrophils 19.33 H Absolute Lymphocytes 2.53 Absolute Monocytes 1.81 H Absolute Eosinophils 0.17 Absolute Basophils 0.07 RBC Morphology Normal VBG pH VBG pCO2 VBG pO2 VBG HCO3 VBG Total CO2 VBG O2 Saturation VBG Base Excess Sodium 140 Potassium 3.7 Chloride 107 Carbon Dioxide 22.5 Anion Gap 10.5 BUN 23 H Creatinine 0.8 Est GFR (CKD-EPI 2020) 74.90 Glucose 103 Calcium 8.3 L Magnesium 2.0 Total Bilirubin Conjugated Bilirubin AST ALT Alkaline Phosphatase Troponin I C-Reactive Protein 6.93 H Total Protein Albumin Amylase Lipase 98 H Procalcitonin TSH Urine Color Urine Clarity Urine pH Ur Specific [place] Urine Protein Urine Ketones Urine Blood Urine Nitrite Urine Bilirubin Urine Urobilinogen Ur Leukocyte Esterase Urine Glucose Stl C.difficile Tox PCR Add-On Test Request COMPLETED DONE 10/21/23 12:31 WBC RBC Hgb Hct MCV MCH MCHC RDW Plt Count MPV Immature Gran % Neutrophils % Lymphocytes % Monocytes % Eosinophils % Basophils % Nucleated RBC % Absolute Neutrophils Absolute Lymphocytes Absolute Monocytes Absolute Eosinophils Absolute Basophils RBC Morphology VBG pH VBG pCO2 VBG pO2 VBG HCO3 VBG Total CO2 VBG O2 Saturation VBG Base Excess Sodium Potassium Chloride Carbon Dioxide Anion Gap BUN Creatinine Est GFR (CKD-EPI 2020) Glucose Calcium Magnesium Total Bilirubin 0.5 Conjugated Bilirubin 0.1 AST 15 ALT 28 Alkaline Phosphatase 49 Troponin I C-Reactive Protein Total Protein 6.1 L Albumin 2.8 L Amylase Lipase Procalcitonin TSH Urine Color Urine Clarity Urine pH Ur Specific [place] Urine Protein Urine Ketones Urine Blood Urine Nitrite Urine Bilirubin Urine Urobilinogen Ur Leukocyte Esterase Urine Glucose Stl C.difficile Tox PCR Add-On Test Request Time Spent with Patient Time Spent with Patient: 35-49 minutes Time was spent: preparing to see the patient(eg.review tests), ordering medications,tests, procedures, referring, communicating with other health career and transition teacher, indepentently interpreting results, counseling the patient and care coordination
--- NOTE | 2023-10-21 17:08 | W.ORTHOCONSU ---
Assessment and Plan Assessment and plan (1) Left shoulder pain: Status: Acute Assessment and plan: 78-year-old female consult requested for left shoulder septic arthritis Patient with about 1 month of left shoulder pain with lifting and reaching. Received left shoulder steroid injection at her primary care doctor's office about 1 week ago. Feels the steroid injection has not really been helping. Describes difficulty in certain positions away from the body or lifting something like milk up into the top shelf. Shoulder is otherwise comfortable at rest and functional for light regular use and below shoulder height. Admitted to the hospital for leukocytosis. No acute worsening of shoulder pain or discomfort. Left shoulder exam overwhelmingly reassuring. Nontoxic-appearing. Comfortable and conversant. Readily moving and demonstrating her left shoulder to me. Nontender about the shoulder. No erythema or effusion. Good good active range of motion, tolerates nearly full passive range of motion without difficulty. Moderately positive empty can rotator cuff testing. No signs or symptoms of septic joint. Likely acute on chronic rotator cuff tearing versus rotator cuff arthropathy given advanced age. Complete left shoulder x-rays. Consider gentle physical therapy left shoulder including rotator cuff strengthening. Follow-up outpatient Dr. Webb. Call me directly with any questions or concerns. PFSH All Active Problems (Updated 10/21/23 @ 17:31 by Yumiko Cavazos NP) Left shoulder pain (Acute) Leukocytosis (Acute) S/P AVR (aortic valve replacement) (Chronic ~03/20/17) Depression (Chronic) Diarrhea (Acute) Chronic GERD (Acute) Epigastric pain (Chronic) Medical History (Updated 10/21/23 @ 17:31 by Yumiko Cavazos NP) Tubular adenoma of colon (~11/06/22) Abdominal bloating Chronic nausea Chest pain Overweight Family history of colon cancer Rheumatoid arthritis Nicotine dependence Motion sickness Low back pain [place] lesion of lung Aortic stenosis HTN (hypertension) Surgical History (Updated 10/20/23 @ 19:05 by Yumiko Cavazos NP) History of colonoscopy with polypectomy (~11/06/22) History of colonoscopy 08/26/2016 @[facility] 11/19/2009 @[facility] with polypectomies= Hyperplastic History of tonsillectomy Social History Smoking/Tobacco Use Status: Current every day Tobacco Type: cigarettes Years smoked: 60 Smoking risk assessment performed?: Yes Alcohol Intake: current Alcohol Intake frequency: holidays/special occasions only Alcohol type: beer Drug use: Never Substance use type: does not use Housing: house Do you feel safe at home: Yes Do you feel safe in your relationship?: Yes Results Last Vital Signs Temp 97.9 F 10/21/23 07:47 Pulse 53 L 10/21/23 11:20 Resp 18 10/21/23 11:20 BP 102/62 10/21/23 11:20 Pulse Ox 97 10/21/23 11:20 Labs 10/21/23 11:55 10/21/23 05:46 Labs: Laboratory Results - last 24 hr 10/20/23 10/20/23 10/21/23 12:37 21:20 04:15 WBC RBC Hgb Hct MCV MCH MCHC RDW Plt Count MPV Immature Gran % Neutrophils % Lymphocytes % Monocytes % Eosinophils % Basophils % Nucleated RBC % Absolute Neutrophils Absolute Lymphocytes Absolute Monocytes Absolute Eosinophils Absolute Basophils RBC Morphology Sodium Potassium Chloride Carbon Dioxide Anion Gap BUN Creatinine Est GFR (CKD-EPI 2020) Glucose Calcium Magnesium Total Bilirubin Conjugated Bilirubin AST ALT Alkaline Phosphatase C-Reactive Protein Total Protein Albumin Lipase TSH 2.02 Urine Color Cancelled Urine Clarity Cancelled Urine pH Cancelled Ur Specific [place] Cancelled Urine Protein Cancelled Urine Ketones Cancelled Urine Blood Cancelled Urine Nitrite Cancelled Urine Bilirubin Cancelled Urine Urobilinogen Cancelled Ur Leukocyte Esterase Cancelled Urine Glucose Cancelled Stl C.difficile Tox PCR Negative Add-On Test Request 10/21/23 10/21/23 10/21/23 05:46 11:55 12:00 WBC 24.10 H RBC 3.97 Hgb 10.5 L D 10.4 L Hct 33.0 L 32.2 L MCV 83 MCH 26.4 L MCHC 31.8 L RDW 17.7 H Plt Count 194 MPV 11.2 H Immature Gran % 0.8 Neutrophils % 80.2 Lymphocytes % 10.5 Monocytes % 7.5 Eosinophils % 0.7 Basophils % 0.3 Nucleated RBC % 0.0 Absolute Neutrophils 19.33 H Absolute Lymphocytes 2.53 Absolute Monocytes 1.81 H Absolute Eosinophils 0.17 Absolute Basophils 0.07 RBC Morphology Normal Sodium 140 Potassium 3.7 Chloride 107 Carbon Dioxide 22.5 Anion Gap 10.5 BUN 23 H Creatinine 0.8 Est GFR (CKD-EPI 2020) 74.90 Glucose 103 Calcium 8.3 L Magnesium 2.0 Total Bilirubin Conjugated Bilirubin AST ALT Alkaline Phosphatase C-Reactive Protein 6.93 H Total Protein Albumin Lipase 98 H TSH Urine Color Urine Clarity Urine pH Ur Specific [place] Urine Protein Urine Ketones Urine Blood Urine Nitrite Urine Bilirubin Urine Urobilinogen Ur Leukocyte Esterase Urine Glucose Stl C.difficile Tox PCR Add-On Test Request COMPLETED DONE 10/21/23 12:31 WBC RBC Hgb Hct MCV MCH MCHC RDW Plt Count MPV Immature Gran % Neutrophils % Lymphocytes % Monocytes % Eosinophils % Basophils % Nucleated RBC % Absolute Neutrophils Absolute Lymphocytes Absolute Monocytes Absolute Eosinophils Absolute Basophils RBC Morphology Sodium Potassium Chloride Carbon Dioxide Anion Gap BUN Creatinine Est GFR (CKD-EPI 2020) Glucose Calcium Magnesium Total Bilirubin 0.5 Conjugated Bilirubin 0.1 AST 15 ALT 28 Alkaline Phosphatase 49 C-Reactive Protein Total Protein 6.1 L Albumin 2.8 L Lipase TSH Urine Color Urine Clarity Urine pH Ur Specific [place] Urine Protein Urine Ketones Urine Blood Urine Nitrite Urine Bilirubin Urine Urobilinogen Ur Leukocyte Esterase Urine Glucose Stl C.difficile Tox PCR Add-On Test Request
[2023-10-21] MEDS: Polyethylene Glycol 3350 17 GM PACKET PO (19:45)
[2023-10-21 21:17] VITALS: BP 106/68; PULSE 70; RESP 18; TEMP 37.6; O2SAT 97
[2023-10-21 23:13] LABS: Campylobacter PCR Negative (Negative); Salmonella PCR Negative (Negative); Shiga Toxin PCR Negative (Negative); Shigella/Enteroinvasive Ecoli Negative (Negative)
[2023-10-21 23:22] VITALS: BP 91/55; PULSE 70; RESP 18; TEMP 37.2; O2SAT 98
[2023-10-22 03:02] VITALS: BP 126/70; PULSE 64; RESP 18; TEMP 36.8; O2SAT 97
[2023-10-22 06:51] LABS: Abs Immature Grans 0.13 10^3/uL (0.0-0.06); Absolute Basophil Count 0.06 10^3/uL (0.0-0.2); Absolute Neutrophil Count 16.09 10^3/uL (1.2-6.7); Basophils % 0.3; Eosinophils % 0.7; HCT 32.9 % (36.0-46.0); HGB 10.6 g/dL (11.2-15.7); Immature Grans % 0.6; Lymphocytes % 12.1; MCH 26.9 pg (27.0-33.0); MCHC 32.2 % (32.0-36.0); MCV 84 fL (80-95); MPV 11.3 fL (8.0-11.0); Monocytes % 7.4; Neutrophils % 78.9; Platelet Count 194 10^3/uL (130-400); RBC 3.94 10^6/uL (3.93-5.22); RDW 17.7 % (11.7-14.6); RDW-SD 53.8 fL; WBC 20.39 10^3/uL (4.4-10.8)
[2023-10-22 06:52] LABS: Absolute Eosinophil Count 0.14 10^3/uL (0.0-0.7); Absolute Lymphocyte Count 2.47 10^3/uL (1.2-3.4); Absolute Monocyte Count 1.51 10^3/uL (0.1-0.8)
[2023-10-22 06:55] LABS: ESR 35 mm/hr (0-30)
[2023-10-22 07:05] LABS: Anion Gap 9.8 mmol/L (3-11); BUN 25 mg/dL (7-18); CO2 24.2 mmol/L (21.0-32.0); CREATININE 0.9 mg/dL (0.55-1.02); Calcium 8.6 mg/dL (8.5-10.1); Chloride 107 mmol/L (98-107); Estimated GFR 65.03 (mL/min/1.73m2); Glucose 124 mg/dL (74-106); Potassium 3.7 mmol/L (3.5-5.1); Sodium 141 mmol/L (136-145)
[2023-10-22 08:45] VITALS: BP 112/50; PULSE 71; RESP 16; TEMP 36.8; O2SAT 96
[2023-10-22] MEDS: Escitalopram 20 MG TAB PO (08:53)
[2023-10-22] MEDS: Sucralfate 1 GM TAB PO ×2 (08:53→11:48)
[2023-10-22] MEDS: Pantoprazole 40 MG VIAL IVP (08:54)
[2023-10-22] MEDS: Polyethylene Glycol 3350 17 GM PACKET PO (08:55)
[2023-10-22 08:58] LABS: Lab Add On Test DONE
[2023-10-22] MEDS: Normal Saline Flush 10 ML SYR IVP (09:07)
[2023-10-22] MEDS: Lisinopril 20 MG TAB PO (09:19)
[2023-10-22 09:36] LABS: C-Reactive Protein 10.11 mg/dL (<or=0.5)
[2023-10-22 09:54] LABS: Procalcitonin 0.2 ng/mL
--- NOTE | 2023-10-22 10:38 | IN_ITS ---
PT Notes Visit Reasons: Leukocytosis Physical Therapy Inpatient Initial Evaluation Date: 10/22/2023 Referring Doctor: Yumiko Cavazos NP PT Orders: PT CONSULT: Left shoulder pain-see ortho notes Precautions: Fall. Standard. Activity as tolerated. Patient Profile/Admitting Diagnosis: Patient is a 78-year-old ambidextrous female patient admitted for management of left shoulder pain, leukocytosis, diarrhea, chronic GERD, epigastric pain, and depression. PMHX: All Active Problems (Updated 10/20/23 @ 19:07 by Yumiko Cavazos NP) Leukocytosis (Acute) S/P AVR (aortic valve replacement) (Chronic ~03/20/17) Depression (Chronic) Diarrhea (Acute) Chronic GERD (Acute) Epigastric pain (Chronic) Medical History (Updated 10/20/23 @ 19:07 by Yumiko Cavazos NP) Tubular adenoma of colon (~11/06/22) Abdominal bloating Chronic nausea Chest pain Overweight Family history of colon cancer Rheumatoid arthritis Nicotine dependence Motion sickness Low back pain [place] lesion of lung Aortic stenosis HTN (hypertension) Surgical History (Updated 10/20/23 @ 19:05 by Yumiko Cavazos NP) History of colonoscopy with polypectomy (~11/06/22) History of colon[facility] 08/26/2016 @[facility] 11/19/2009 @[facility] with polypectomies= Hyperplastic History of tonsillectomy Social History/Home Situation: 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 Independent of all aspects of ADLs prior to admission. Still drives. Equipment Owned/DME: None Subjective: Reports tenderness and pain on the front of the left shoulder with certain shoulder movements. No previous trauma to shoulder. Did not lift anything heavy in the past weeks. Hopeful about going home today as she worries about her . Objective: General Observation: Resting in bed. No lines. Mental Status: Alert and oriented as to person, place, time, and purpose. Able to pay attention, focus, and respond appropriately. Pain: 2-3/10 with some shoulder movements Vital Signs: WNL as monitored by nursing staff ROM: Left Upper Extremity: Shoulder Flexion WFL. Shoulder abduction WFL. Elbow flexion WFL. Wrist flexion WFL. Functional opening and closing of hand WFL. Strength: Left Upper Extremity: Shoulder flexors 4-/5. Shoulder abductors 4-/5. Shoulder external rotators 3/5. Shoulder internal rotators 3/5. Elbow flexors 4/5. Elbow extensors 4/5. Seal Skinner strong. Bed Mobility/Transfers: Rolling independent Supine to sit independent Sit to supine independent Sit to stand independent Stand to sit independent Bed to reclining independent Reclining chair to bed independent Gait: independent with level surface ambulation without AD. Balance: Static Sitting: Normal Dynamic Sitting: Normal Static Standing: Normal Dynamic Standing: Good Special Tests: Mobility Limitations Standardized Measure [facility] AM-PAC 6 clicks Basic Mobility Inpatient Short Form: Raw Score: 24 CMS Score: 0%% deficit L Empty Can Test: Minimal pain at L shoulder with resistance given but patient was able to hold position L Drop Arm test: Negative L Lag Sign: Negative L Lift Off Test: Negative Infraspinatus Test: Positive, reported pain at 7-8/10 at shoulder with resistance Informed Consent/Education: Patient was instructed in purpose of PT consult and plan of care. Agreeable to proceed with established PT POC to achieve personal goals. Access Code: [email or web address] URL: [email or web address] Date: 10/22/2023 Prepared by: Keri King Exercises - Standing Infraspinatus/Teres Minor Release with Ball at Wall - 1 x daily - 7 x weekly - 1 sets - 10 reps - 5 hold - Seated Scapular Retraction - 1 x daily - 7 x weekly - 1 sets - 10 reps - 5 hold - Seated Shoulder Shrugs - 1 x daily - 7 x weekly - 1 sets - 10 reps - 5 hold - Seated Shoulder Shrug Circles AROM Backward - 1 x daily - 7 x weekly - 1 sets - 10 reps - 5 hold ASSESSMENT: Patient with rotator cuff sprain/arthropathy with symptom mostly produced with infraspinatus test indictaaing weakness/strain/tendinopathy of infraspinatus and teres minor. Able to complete AROM with little to no difficulty however has pain with resisted external rotation and abduction. Patient presents with clinical signs and symptoms consistent with current/admitting diagnoses that have resulted to mobility limitations, gait instability, generalized weakness, and overall ADL decline as demonstrated by the following impairment level findings: 1. Decreased strength to R rotator cuff muscles most pronounced with L infraspinatus/teres major Impairments are contributing to the following functional limitations: 1. Limited ability to use L UE due to pain with some shoulder movement Patient is assessed as a 52582 low complexity based on the following: History: 78-year-old female with past medical history as indicated above Examination: Demonstrable impairment in strength, balance, and mobility level with underlying impairments and functional limitations as exhibited above as well as deficit score of 0% utilizing the [facility] Mobility Inpatient Short Form Presentation: Stable Decision Makin low complexity Goals: Goals X1 week 1. Patient will increase L rotator cuff muscle group strength to allow optimal use of L UE for efficient ADL performance. Plan of Care/Treatment Plan: 1. Will see patient for one more session this afternoon for HEP instruction. DISCHARGE RECOMMENDATIONS: [] Home with no services [] [] Home with services [specify] [X] Home with outpatient PT. Home when medically cleared by hospitalist. Will require outpatient PT for left rotator cuff strengthening and rehab. [] SNF for continued rehabilitation [] [] [facility] [] [] SNF versus LTC based on ability to participate and progress [] TREATMENT CODE/TIME: 04390 x 20 minutes for 1 unit (10:38-10:58). Thank you for the opportunity to participate in the care of this patient. Keri King PT, DPT, CLT [facility] [place], [place]
[2023-10-22 11:22] VITALS: BP 100/65; PULSE 69; RESP 16; TEMP 37.1; O2SAT 96
--- NOTE | 2023-10-22 11:44 | DSE_ITS ---
Date of service: 10/22/23 Time of Service: 11:45 DS: Diagnosis Discharge Diagnosis (1) Leukocytosis: Status: Acute (2) Diarrhea: Status: Resolved (3) Left shoulder pain: Status: Acute (4) Chronic GERD: Status: Acute (5) Epigastric pain: Status: Resolved (6) Depression: (7) S/P AVR (aortic valve replacement): Discharge Plan Disposition Patient Disposition: Home Condition: Improving Discharge Details Reason For Visit: Leukocytosis Admit Date/Time: 10/20/23 16:05 Admit Provider: Bettie Khoury Attending Provider: Bettie Khoury [place] [facility]: This is a 78 year old female patient with past medical history significant for but not limited to bovine aortic valve replacement, hypertension and GERD who presented to the [facility] ED on 10/20/23 for evaluation of sudden onset of abdominal pain. Patient reported she has had this intermittently in the past. She denied fever or chills, no radiation of pain, no nausea, vomiting, diaphoresis. Patient did report having diarrhea for three weeks, denied bloody stools, no recent antibiotics. Patient told ED staff this the worst pain that she has ever experienced. Patient also denied chest pain, palpitations, recent air travel, surgeries, or long drives. Denies recent antibiotics. Has had some intermittent pain in her epigastrium. Denies any blood in her stool. Denies any known sick contacts. Labs in the ED significant for leukocytosis, WBC 28,000. Abdominal US - hepatic steatosis. CT abdomen, pelvis: No acute abnormality in the chest, abdomen or pelvis. Severe atherosclerotic changes. Mild interval increase in size of previously noted ground-glass infiltrate in the right upper lobe. Consider follow-up in 6 months. She was admitted to the medical floor for further testing and treatment. Her WBC came down, CRP elevated. BC negative. Urine negative. Procalcitonin negative. Vital signs normal, no fever. Patient complained of left should pain and was evaluated by orthopedics. Left shoulder xray -moderate degenerative changes. She can benefit from OP PT, this has been ordered. She will follow up with orthopedics out patient. We will repeat labs (results to PCP) on Friday 10/27. Patient should continue carafate until follow up with PCP. Without a source for infection, patient is discharged, stable to home. Patient has been advised to follow up with PCP and to return to ED if she is feeling worse. She wants to go home to care for her who has had a recent stroke. She voiced she would return to ED if worse. Home Meds and New Rx's Prescriptions: New sucralfate 1 gram Tablet 1 g PO AC & HS Qty: 30 0RF Continued aspirin [Adult Aspirin Regimen] 81 mg tablet,delayed release (DR/EC) 81 mg PO DAILY albuterol sulfate 90 mcg/actuation HFA aerosol inhaler 2 puff inhalation Q6H PRN pantoprazole 40 mg tablet,delayed release (DR/EC) See Rx Instructions .ROUTE .COMPLEX Qty: 90 3RF Dose Instruction: TAKE ONE TABLET BY MOUTH EVERY DAY Rx Instructions: TAKE ONE TABLET BY MOUTH EVERY DAY epinephrine 0.3 mg/0.3 mL Auto-Injector 0.3 mg IM PRN PRN metoprolol tartrate 25 mg Tablet 25 mg PO DAILY escitalopram oxalate 20 mg tablet 20 mg PO DAILY Patient Comments: TAKE ONE TABLET BY MOUTH EVERY DAY lisinopril-hydrochlorothiazide 20-25 mg tablet 1 tab PO DAILY Patient Comments: TAKE ONE TABLET BY MOUTH EVERY DAY (DME) OneTouch Verio test strips Strip MISCELLANEOUS Patient Comments: TEST BLOOD SUGAR 2 TIMES A DAY naproxen 500 mg tablet 500 mg PO BID PRNQty: 14 0RF Discharge Instructions Instructions: GERD (Gastroesophageal Reflux Disease) (DC), Leukocytosis (DC) Additional Instructions: Have labs checked on Thursday. Follow up with PCP. Take carafate before meals and at bedtime until follow up with PCP. CT results should be reviewed with PCP. Follow up with Dr Webb, orthopedics, for your shoulder injury. A referral for out patient physical therapy has been sent. If you don't feel better, please followup with your PCP sooner. If you feel worse, please return to the emergency department. Stand Alone Forms: Nursing Discharge Form Referrals: Jorge Davidson, Physical Therapy [Outside] (Office would like you to give them a call to set up your appointment. Please ca ll them today. Left shoulder injury; probable rotator cuff injury - ortho will follow) Ryan Webb MD [ [facility] STAFF PHYSICIAN] - (Message left with office to call you to make a follow up appointment. Please follow up with them if you do not hear from them today. Follow up shoulder pain) Babar Mclaughlin [Primary Care Provider] - 11/04/23 2:40 pm (1 week - for evaluation of continued leukocytosis; elevated CRP; no source of infection - CT chest/abd abnormal results should be reviewed. ) Activity:: Activity as Tolerated Equipment/Supplies:: No Equipment Needed Diet:: As Tolerated Discharge Orders Discharge Orders: Discharge Order (Routine); Ordered 10/22/23 Ordered By: Yumiko Cavazos Other Ambulatory Orders: Basic Metabolic Panel (Routine) Timeframe: 20231026 Facility: [facility] - Location: Laboratory Outpatient - [facility] Ordered By: Yumiko Cavazos Complete Blood Count w/Diff (Routine) Timeframe: 20231026 Facility: [facility] - Location: Laboratory Outpatient - [facility] Ordered By: Yumiko Cavazos C-Reactive Protein (Routine) Timeframe: 20231026 Facility: [facility] - Location: Laboratory Outpatient - [facility] Ordered By: Yumiko Cavazos Discharge Data Discharge Date/Time-TO BE ENTERED AT DEPARTURE: 10/22/23 13:44 DS: Summary Time Spent with Patient providing and/or coordinating discharge services: Greater than 30 minutes Status at Discharge Functional status at discharge: independent ambulation Overall status at discharge: patient is progressing back to baseline Mental Status: mental status grossly normal Speech and Movement: speech and movement normal Mood: congruent mood Affect: normal affect Quality:SDOH Health Related Social Needs: No Data to Display Exam Psych Mental Status: mental status grossly normal Speech and Movement: speech and movement normal Mood: congruent mood Affect: normal affect DS: Data Vitals/I&O Vitals and I&O: Vital Signs Temperature 37.1 C 10/22/23 11:22 Temperature Source Tympanic 10/22/23 11:22 Pulse 69 10/22/23 11:22 Pulse Rhythm Regular 10/22/23 10:13 Pulse 64 10/20/23 16:16 Respiratory Rate 16 10/22/23 11:22 Respiratory Effort Normal, Non-Labored 10/22/23 10:13 Respiratory Depth Normal 10/22/23 10:13 Respiratory Pattern Normal 10/22/23 10:13 Blood Pressure 100/65 10/22/23 11:22 Blood Pressure Mean 74 10/20/23 16:16 Blood Pressure Position Supine 10/20/23 12:20 Pulse Oximetry 96 10/22/23 11:22 Oxygen Delivery Method Room Air 10/22/23 11:22 Oxygen Flow Rate 0 10/22/23 11:22 Pain Level 0 10/22/23 11:22 Intake & Output 10/21/23 10/21/23 10/22/23 11:59 23:59 11:59 Intake Total 1260 / 3065 1805 / 3065 Balance 1260 / 3065 1805 / 3065 Weight 85.6 kg 80.6 kg Intake: IV 1009 Oral 250 / 1055 805 / 1055 Other: Urine Color Yellow Yellow Yellow Urine Appearance Clear Clear Clear Urine Odor None Normal Voiding Methods Toilet Toilet Toilet Data Completed and Pending Labs on day of discharge: Labs from last 24 hours 10/22/23 10/22/23 10/21/23 08:57 05:40 12:31 WBC 20.39 H RBC 3.94 Hgb 10.6 L Hct 32.9 L MCV 84 MCH 26.9 L MCHC 32.2 RDW 17.7 H Plt Count 194 MPV 11.3 H Immature Gran % 0.6 Neutrophils % 78.9 Lymphocytes % 12.1 Monocytes % 7.4 Eosinophils % 0.7 Basophils % 0.3 Nucleated RBC % 0.0 Absolute Neutrophils 16.09 H Absolute Lymphocytes 2.47 Absolute Monocytes 1.51 H Absolute Eosinophils 0.14 Absolute Basophils 0.06 ESR 35 H Sodium 141 Potassium 3.7 Chloride 107 Carbon Dioxide 24.2 Anion Gap 9.8 BUN 25 H Creatinine 0.9 Est GFR (CKD-EPI 2020) 65.03 Glucose 124 H Calcium 8.6 Magnesium 2.0 Total Bilirubin 0.5 Conjugated Bilirubin 0.1 AST 15 ALT 28 Alkaline Phosphatase 49 C-Reactive Protein 10.11 H Total Protein 6.1 L Albumin 2.8 L Procalcitonin 0.2 Urine Color Urine Clarity Urine pH Ur Specific Isabella Urine Protein Urine Ketones Urine Blood Urine Nitrite Urine Bilirubin Urine Urobilinogen Ur Leukocyte Esterase Urine Glucose Stool Campylobacter PCR Stool Salmonella PCR Stool Shigella PCR Shiga Toxin (PCR) Add-On Test Request DONE 10/21/23 10/21/23 10/21/23 12:00 11:55 05:46 WBC RBC Hgb 10.4 L Hct 32.2 L MCV MCH MCHC RDW Plt Count MPV Immature Gran % Neutrophils % Lymphocytes % Monocytes % Eosinophils % Basophils % Nucleated RBC % Absolute Neutrophils Absolute Lymphocytes Absolute Monocytes Absolute Eosinophils Absolute Basophils ESR Sodium Potassium Chloride Carbon Dioxide Anion Gap BUN Creatinine Est GFR (CKD-EPI 2020) Glucose Calcium Magnesium Total Bilirubin Conjugated Bilirubin AST ALT Alkaline Phosphatase C-Reactive Protein Total Protein Albumin Procalcitonin Urine Color Urine Clarity Urine pH Ur Specific Isabella Urine Protein Urine Ketones Urine Blood Urine Nitrite Urine Bilirubin Urine Urobilinogen Ur Leukocyte Esterase Urine Glucose Stool Campylobacter PCR Stool Salmonella PCR Stool Shigella PCR Shiga Toxin (PCR) Add-On Test Request DONE COMPLETED 10/21/23 10/20/23 04:15 21:20 WBC RBC Hgb Hct MCV MCH MCHC RDW Plt Count MPV Immature Gran % Neutrophils % Lymphocytes % Monocytes % Eosinophils % Basophils % Nucleated RBC % Absolute Neutrophils Absolute Lymphocytes Absolute Monocytes Absolute Eosinophils Absolute Basophils ESR Sodium Potassium Chloride Carbon Dioxide Anion Gap BUN Creatinine Est GFR (CKD-EPI 2020) Glucose Calcium Magnesium Total Bilirubin Conjugated Bilirubin AST ALT Alkaline Phosphatase C-Reactive Protein Total Protein Albumin Procalcitonin Urine Color Cancelled Urine Clarity Cancelled Urine pH Cancelled Ur Specific Isabella Cancelled Urine Protein Cancelled Urine Ketones Cancelled Urine Blood Cancelled Urine Nitrite Cancelled Urine Bilirubin Cancelled Urine Urobilinogen Cancelled Ur Leukocyte Esterase Cancelled Urine Glucose Cancelled Stool Campylobacter PCR Negative Stool Salmonella PCR Negative Stool Shigella PCR Negative Shiga Toxin (PCR) Negative Add-On Test Request Preliminary micro results at discharge 10/20/23 13:53 Blood Culture - Preliminary Blood NO GROWTH 24 HOURS 10/20/23 13:59 Blood Culture - Preliminary Blood NO GROWTH 24 HOURS PFSH All Active Problems (Updated 10/23/23 @ 00:04 by Floob[employer]) Left shoulder pain (Acute) Leukocytosis (Acute) Chronic GERD (Acute) Medical History (Updated 10/23/23 @ 00:04 by Floob[employer]) Depression Tubular adenoma of colon (~11/06/22) Abdominal bloating Chronic nausea Chest pain Overweight Family history of colon cancer Rheumatoid arthritis Nicotine dependence Motion sickness Low back pain [place] lesion of lung Aortic stenosis HTN (hypertension) Surgical History (Updated 10/23/23 @ 00:04 by Floob[employer]) S/P AVR (aortic valve replacement) (~03/20/17) History of colonoscopy with polypectomy (~11/06/22) History of colonoscopy 08/26/2016 @[facility] 11/19/2009 @[facility] with polypectomies= Hyperplastic History of tonsillectomy Social History Smoking/Tobacco Use Status: Current every day Tobacco Type: cigarettes Years smoked: 60 Smoking risk assessment performed?: Yes Alcohol Intake: current Alcohol Intake frequency: holidays/special occasions only Alcohol type: beer Drug use: Never Substance use type: does not use Housing: house Do you feel safe at home: Yes Do you feel safe in your relationship?: Yes Time Spent with Patient Time Spent with Patient: 45-69 minutes Time was spent: preparing to see the patient(eg.review tests), ordering medica tions,tests, procedures, referring, communicating with other health long term care social worker, indepentently interpreting results, counseling the patient and care coordination
--- NOTE | 2023-10-22 13:25 | PT.INTREAT ---
PT Notes Visit Reasons: Leukocytosis Physical Therapy Inpatient Treatment Note Date: 10/22/2023 Precautions: Fall. Standard. Activity as tolerated. Subjective: Happy to go home. [place] better this afternoon. Okay with continuing with outpatient PT for hr L shoulder. Objective: General Observation: Resting in bed. No lines. Mental Status: Alert and oriented as to person, place, time, and purpose. Able to pay attention, focus, and respond appropriately. Pain: 1-2/10 with some shoulder movements Vital Signs: WNL as monitored by nursing staff GOLD EX: Trained patient with HEP for L rotator cuff arthropathy. Provided patient with written copy of exercises and answered all questions she had. Access Code: [email or web address] URL: [email or web address] Date: 10/22/2023 Prepared by: Keri King Exercises - Standing Infraspinatus/Teres Minor Release with Ball at Wall - 1 x daily - 7 x weekly - 1 sets - 10 reps - 5 hold - Seated Scapular Retraction - 1 x daily - 7 x weekly - 1 sets - 10 reps - 5 hold - Seated Shoulder Shrugs - 1 x daily - 7 x weekly - 1 sets - 10 reps - 5 hold - Seated Shoulder Shrug Circles AROM Backward - 1 x daily - 7 x weekly - 1 sets - 10 reps - 5 hold ASSESSMENT: Patient with rotator cuff sprain/arthropathy with symptom mostly produced with infraspinatus test indictaaing weakness/strain/tendinopathy of infraspinatus and teres minor. Able to complete AROM with little to no difficulty however has pain with resisted external rotation and abduction. Patient presents with clinical signs and symptoms consistent with current/admitting diagnoses that have resulted to mobility limitations, gait instability, generalized weakness, and overall ADL decline as demonstrated by the following impairment level findings: 1. Decreased strength to R rotator cuff muscles most pronounced with L infraspinatus/teres major Impairments are contributing to the following functional limitations: 1. Limited ability to use L UE due to pain with some shoulder movement DISCHARGE RECOMMENDATIONS: [] Home with no services [] [] Home with services [specify] [X] Home with outpatient PT. Home when medically cleared by hospitalist. Will require outpatient PT for left rotator cuff strengthening and rehab. [] SNF for continued rehabilitation [] [] [facility] [] [] SNF versus LTC based on ability to participate and progress [] TREATMENT CODE/TIME: 35086 x 15 minutes for 1 unit (13:25-13:40).
--- NOTE | 2023-10-22 21:08 | PDOC.CMDIS ---
Date of service: 10/22/23 Time of Service: 21:09 LACE Index Scoring Tool Questions: Length of Stay (in days): 2 Was the patient admitted via the E.D.?: Yes E.D. Visits: 1 Answers: Total Score: 6 Risk of Readmission: Low Risk Care Management Discharge Plan Reason for Hospitalization: leukocytosis, abdominal pain Discharge Plan: Yumiko will be discharged home with no new services. She will follow up with her community providers and plan of care and transport with family. Yumiko requested copies of the [place] Advanced Directives forms which CM provided CM offered to assist with their completion on an outpatient basis if Yumiko wishes. Patient/Family Education Needs: Review of discharge instructions, activity, limitations, follow up plan, discuss Ask Me Three [employer] Health Related Social Needs: No Data to Display
== END 2023-10-22 13:44 | disposition home or self-care (01) ==
LOC: ER 13:42 → MS 16:37
PROVIDERS: Nurse Practitioner Family; Admitting Provider Internal Medicine; Emergency Provider Physician Assistant; PCP Family Medicine; Visit Provider Internal Medicine
DX: D72.829 Elevated white blood cell count, unspecified (principal); R19.7 Diarrhea, unspecified; K21.9 Gastro-esophageal reflux disease without esophagitis; R10.13 Epigastric pain; I10 Essential (primary) hypertension; F32.A Depression, unspecified; Z95.3 Presence of xenogenic heart valve; Z80.0 Family history of malignant neoplasm of digestive organs; F17.210 Nicotine dependence, cigarettes, uncomplicated; Z79.899 Other long term (current) drug therapy; M25.512 Pain in left shoulder
CPT/HCPCS: 00123; 36415; 74177; 80048; 80053; 80076; 82805; 83690; 84145; 85652; 87040; 87493; 87505; 87637; 93005; 96361; 96365; 96366; 96368; 96374; 97110; 97162; 99285; 71260; 73030; 76705; 81003; 82150; 83605; 83735; 83880; 84443; 84484; 85014; 85018; 85025; 86140; 93010; 99222; 99232; 99239; G0378; J0131; J2470; J3490

== ENCOUNTER 2023-10-26 15:39 | Outpatient (CLI) | payer MEDICARE, SELFPAY ==
[2023-10-26 12:55] LABS: Abs Immature Grans 0.06 10^3/uL (0.0-0.06); Absolute Basophil Count 0.08 10^3/uL (0.0-0.2); Absolute Eosinophil Count 0.23 10^3/uL (0.0-0.7); Absolute Lymphocyte Count 2.75 10^3/uL (1.2-3.4); Absolute Monocyte Count 0.96 10^3/uL (0.1-0.8); Basophils % 0.6; Eosinophils % 1.7; HCT 37.8 % (36.0-46.0); HGB 11.9 g/dL (11.2-15.7); Immature Grans % 0.4; Lymphocytes % 20.6; MCH 26.5 pg (27.0-33.0); MCHC 31.5 % (32.0-36.0); MCV 84 fL (80-95); MPV 11.4 fL (8.0-11.0); Monocytes % 7.2; Neutrophils % 69.5; Platelet Count 261 10^3/uL (130-400); RBC 4.49 10^6/uL (3.93-5.22); RDW 17.4 % (11.7-14.6); RDW-SD 53.1 fL; WBC 13.34 10^3/uL (4.4-10.8)
[2023-10-26 12:58] LABS: Absolute Neutrophil Count 9.27 10^3/uL (1.2-6.7)
[2023-10-26 13:16] LABS: Anion Gap 11.2 mmol/L (3-11); BUN 31 mg/dL (7-18); C-Reactive Protein 0.89 mg/dL (<or=0.5); CO2 23.8 mmol/L (21.0-32.0); CREATININE 1.2 mg/dL (0.55-1.02); Chloride 106 mmol/L (98-107); Estimated GFR 46.05 (mL/min/1.73m2); Glucose 148 mg/dL (74-106); Potassium 4.5 mmol/L (3.5-5.1); Sodium 141 mmol/L (136-145)
== END 2023-10-26 15:40 | disposition home or self-care (01) ==
LOC: LBO 15:40
PROVIDERS: PCP Family Medicine; Visit Provider Nurse Practitioner Family
DX: D72.829 Elevated white blood cell count, unspecified (principal); M25.512 Pain in left shoulder
CPT/HCPCS: 36415; 80048; 85025; 86140

== ENCOUNTER → 2023-12-22 12:54 | Outpatient (BNVA) | payer MEDICARE, SELFPAY | PROVIDERS: PCP Family Medicine; Referring Provider Family Medicine; Visit Provider Student in an Organized Health Care Education/Training Program | DX: M19.011 Primary osteoarthritis, right shoulder (principal); M75.101 Unspecified rotator cuff tear or rupture of right shoulder, not specified as traumatic | CPT/HCPCS: 99213 ==

== ENCOUNTER → 2024-01-06 02:22 | Outpatient (CLI) | payer MEDICARE, SELFPAY ==
--- NOTE | 2024-01-06 11:45 | DI.MRI_ITS ---
Exam(s) MR UPPER JOINT LT WO EXAM: MR UPPER JOINT LT WO CLINICAL HISTORY: L SHOULDER PAIN,lt rotator cuff tear,m75.102. TECHNIQUE: Multiplanar multisequence MRI was performed. COMPARISON: CR XR SHOULDER LT COMPLETE 2+V from 10/21/2023 FINDINGS: The examination is limited due to patient motion artifact. BONES: There is no fracture or contusion pattern. JOINTS: There are moderate degenerative changes seen at the acromioclavicular joint. The humeral hea d is superiorly located relative to the glenoid consistent with a rotator cuff tear. TENDONS: Supraspinatus: There is a complete tear of the supraspinatus tendon with retraction proximal to the g lenoid. Infraspinatus: There is a complete tear of the infraspinatus tendon with retraction almost to the gle nohumeral joint. Subscapularis: Unremarkable. Teres Minor: There is tendinosis present. Biceps and [place]: Unremarkable. MUSCLES: There is marked fatty atrophy of the supraspinatus and moderate fatty atrophy of the infrasp inatus muscles. GLENOID LABRUM: Unremarkable on this noncontrast examination. SOFT TISSUES: Unremarkable. LIGAMENTS: Unremarkable. OTHER: There is fluid in the subacromial subdeltoid bursa secondary to the large rotator cuff tear. IMPRESSION: 1. There are complete tears of the infraspinatus and supraspinatus tendons with retraction. There is resultant superior subluxation of the humeral head with narrowing of the acromial humeral interval. 2. Marked supraspinatus muscle fatty atrophy and moderate infraspinatus muscle fatty atrophy. 3. Degenerative changes at the acromioclavicular joint. DATA REPOSITORY:
== END ==
PROVIDERS: PCP Family Medicine; Visit Provider Student in an Organized Health Care Education/Training Program
DX: M75.122 Complete rotator cuff tear or rupture of left shoulder, not specified as traumatic (principal)
CPT/HCPCS: 73221

== ENCOUNTER → 2024-01-20 10:20 | Outpatient (BNVA) | payer MEDICARE, SELFPAY | PROVIDERS: PCP Family Medicine; Referring Provider Family Medicine; Visit Provider Student in an Organized Health Care Education/Training Program | DX: M19.011 Primary osteoarthritis, right shoulder (principal); M75.101 Unspecified rotator cuff tear or rupture of right shoulder, not specified as traumatic | CPT/HCPCS: 99213 ==

== ENCOUNTER 2024-05-27 14:05 | Emergency (ER) | payer MEDICARE, SELFPAY ==
[2024-05-27] VITALS (32 sets, daily range): BP systolic 110–143; BP diastolic 36–80; PULSE 69–83; RESP 12–24; TEMP 36.8–37; O2SAT 91–98
--- NOTE | 2024-05-27 14:00 | RT.EKG_ITS ---
APPROVED REPORT Exam: Resting ECG Reason for Exam: [place] Patient Location: E HR:82 bpm ECG Measurements Heart Rate 82 AXIS AL 206 P 55 QRSd 90 QRS -1 QT 373 T 61 QTc 436 Conclusion Sinus rhythm, rate 82 No interval abnormalities No STEMI
--- NOTE | 2024-05-27 14:15 | DI.RAD_ITS ---
Exam(s) XR CHEST 2V PA LATERAL EXAM: XR CHEST 2V PA LATERAL CLINICAL HISTORY: fatigue TECHNIQUE: 2D digital imaging was performed. Two views. COMPARISON: CR,XR XR PORTABLE CHEST AP from 03/30/[address] CHEST/ABD/PEL W from 10/20/2023 FINDINGS: HEART: Aortic valve prosthesis. Heart within normal limits in size. Mitral annular calcification. Aorta: Not dilated. Heavily calcified. PULMONARY VASCULATURE: Normal. MEDIASTINUM: Unremarkable. LUNGS: Clear. PLEURAL SPACE: No pleural effusion or pneumothorax. BONE:Sternal wires. Degenerative changes in the spine and shoulders. SOFT TISSUES: Unremarkable. IMPRESSION: No acute abnormality. DATA REPOSITORY: RADIATION DOSE DELIVERED:
--- NOTE | 2024-05-27 14:32 | ED.GENADUL_ITS ---
Discharge Plan Disposition Patient Disposition: Home Condition: Improving Discharge Details Chief Complaint: Dizzy/Sync Clinical Impression: Light-headedness Primary Care Provider: Babar Mclaughlin ED Provider: Duke Keith Home Meds and New Rx's Prescriptions: No Action aspirin [Adult Aspirin Regimen] 81 mg tablet,delayed release (DR/EC) 81 mg PO DAILY multivitamin Tablet 1 tab PO DAILY magnesium 250 mg tablet 250 mg PO DAILY vitamin E (dl, acetate) 45 mg (100 unit) capsule 45 mg PO DAILY acetaminophen 325 mg capsule 325 mg PO ONCE PRN pantoprazole 40 mg tablet,delayed release (DR/EC) See Rx Instructions .ROUTE .COMPLEX Qty: 90 3RF Dose Instruction: TAKE ONE TABLET BY MOUTH EVERY DAY Rx Instructions: TAKE ONE TABLET BY MOUTH EVERY DAY epinephrine 0.3 mg/0.3 mL Auto-Injector 0.3 mg IM PRN PRN metoprolol tartrate 25 mg Tablet 25 mg PO DAILY escitalopram oxalate 20 mg tablet 20 mg PO DAILY Patient Comments: TAKE ONE TABLET BY MOUTH EVERY DAY lisinopril-hydrochlorothiazide 20-25 mg tablet 1 tab PO DAILY Patient Comments: TAKE ONE TABLET BY MOUTH EVERY DAY (DME) OneTouch Verio test strips Strip MISCELLANEOUS Patient Comments: TEST BLOOD SUGAR 2 TIMES A DAY naproxen 500 mg tablet 500 mg PO BID PRNQty: 14 0RF losartan-hydrochlorothiazide 100-25 mg tablet 1 tab PO DAILY Patient Comments: TAKE ONE TABLET BY MOUTH EVERY DAY sucralfate 1 gram tablet 1 g PO Q6H Patient Comments: TAKE ONE TABLET BY MOUTH BEFORE MEALS AND AT BEDTIME Discharge Instructions Instructions: Dizziness, Adult ED Additional Instructions: Please follow-up with your primary care physician. Please return to the emerged part for any worsening symptoms HPI General Date/Time Provider Initiated Documentation: 05/27/24 14:17 . HPI Narrative: 79-year-old female presents with fatigue body aches headache nausea diarrhea and low energy over the last day in the setting of receiving COVID influenza and RSV vaccine within the last 2 days. Mild chest discomfort no shortness of breath no vomiting. No urinary symptoms. Related Data Home Medications ?Medication ?Instructions ?Recorded ?Confirmed epinephrine 0.3 mg/0.3 mL 0.3 mg IM PRN PRN 12/31/20 05/27/24 injection, auto-injector metoprolol tartrate 25 mg tablet 25 mg PO DAILY 12/31/20 05/27/24 aspirin 81 mg tablet,delayed 81 mg PO DAILY 07/28/22 05/27/24 release (Adult Aspirin Regimen) naproxen 500 mg tablet 500 mg PO BID PRN #14 tabs 12/18/22 05/27/24 pantoprazole 40 mg tablet,delayed See Rx Instructions .Route 10/18/23 05/27/24 release .COMPLEX #90 tabs blood sugar diagnostic (OneTouch 10/20/23 05/27/24 Verio test strips) escitalopram oxalate 20 mg tablet 20 mg PO DAILY 10/20/23 05/27/24 lisinopril 20 1 tab PO DAILY 10/20/23 05/27/24 mg-hydrochlorothiazide 25 mg tablet magnesium 250 mg tablet 250 mg PO DAILY 12/22/23 05/27/24 multivitamin 1 tab PO DAILY 12/22/23 05/27/24 vitamin E (dl, acetate) 45 mg (100 45 mg PO DAILY 12/22/23 05/27/24 unit) capsule acetaminophen 325 mg capsule 325 mg PO ONCE PRN 01/20/24 05/27/24 losartan 100 1 tab PO DAILY 05/27/24 05/27/24 mg-hydrochlorothiazide 25 mg tablet sucralfate 1 gram tablet 1 g PO Q6H 05/27/24 05/27/24 Previous Rx's ?Medication ?Instructions ?Recorded naproxen 500 mg tablet 500 mg PO BID PRN #14 tabs 12/18/22 pantoprazole 40 mg tablet,delayed See Rx Instructions .Route 10/18/23 release .COMPLEX #90 tabs Allergies Allergy/AdvReac Type Severity Reaction Status Date / Time hornet venom Allergy Severe Anaphylaxis Verified 05/27/24 14:15 latex Allergy RASH Verified 05/27/24 14:15 adhesive tape AdvReac Skin Rash Verified 05/27/24 14:15 General Stated Complaint: Dizzy/Sync JOSE JUAN: 3 Exam Narrative Exam Narrative: Low energy although alert Moist mucous membranes Normal conjunctiva Normal speech tongue secretions Lungs clear bilaterally no wheezes rales or rhonchi Normal heart sounds no murmurs rubs or gallops Soft nontender nondistended No peripheral edema moving all extremities no signs of trauma No skin lesions Alert oriented 5 and 5 strength upper and lower extremities bilaterally, normal speech cranial nerves intact, no ataxia Course Vital Signs Vital signs: Vital Signs Temperature 37.0 C 05/27/24 14:07 Pulse 83 05/27/24 14:07 Respiratory Rate 12 05/27/24 14:07 Blood Pressure 121/73 05/27/24 14:07 Pulse Oximetry 93 05/27/24 14:07 Temperature 37.0 C 05/27/24 14:07 Temperature Source Oral 05/27/24 14:07 Pulse 83 05/27/24 14:07 Respiratory Rate 12 05/27/24 14:07 Blood Pressure 121/73 05/27/24 14:07 Blood Pressure Position Sitting 05/27/24 14:07 Pulse Oximetry 93 05/27/24 14:07 Oxygen Delivery Method Room Air 05/27/24 14:07 Oxygen Flow Rate 0 05/27/24 14:07 Pain Level 6 05/27/24 14:07 Medical Decision Making 79-year-old female presents with low energy headache nausea diarrhea body aches over the last couple days in the setting of receiving triple vaccination influenza COVID and RSV within the last 2 days, afebrile nontoxic although does appear fatigued, neurologically intact nonfocal nonmeningeal, no external signs of trauma no rashes ecchymosis petechia or purpura, lungs clear bilaterally, abdomen nonperitoneal, consider inflammatory reaction to vaccinations versus viral illness versus pneumonia versus UTI versus electrolyte derangement versus dehydration lower suspicion for CVA ACS PE pneumothorax or aortic pathology, will obtain screening labs imaging fluids EKG urinalysis close reassessment 18: 26 resting comfortably no acute distress. Neurologically intact. CTA head neck unremarkable chest x-ray unremarkable labs largely unremarkable. Consider inflammatory state from recent vaccination versus component of mild dehydration. No evidence of [place] or serious bacterial infection. Home care instructions and return precautions given. Patient made aware of her carotid stenosis seen on CTA, patient Dors that this has been known since approximately 2017. Quality:SDOH Health Related Social Needs: No Data to Display PFSH All Active Problems (Updated 05/27/24 @ 18:27 by Duke Keith MD) Light-headedness (Acute) Rotator cuff tear, right (Acute) Arthritis of right glenohumeral joint (Acute) Arthropathy of left shoulder (Acute) Left shoulder pain (Acute) Leukocytosis (Acute) Medical History (Updated 05/27/24 @ 18:27 by Duke Keith MD) Chronic GERD Depression Tubular adenoma of colon (~11/06/22) Abdominal bloating Chronic nausea Chest pain Overweight Family history of colon cancer Rheumatoid arthritis Nicotine dependence Motion sickness Low back pain [place] lesion of lung Aortic stenosis HTN (hypertension) Surgical History (Updated 10/23/23 @ 00:04 by KENIA SINGLETON) S/P AVR (aortic valve replacement) (~03/20/17) History of colonoscopy with polypectomy (~11/06/22) History of colon[facility] 08/26/2016 @[facility] 11/19/2009 @[facility] with polypectomies= Hyperplastic History of tonsillectomy Social History Smoking/Tobacco Use Status: Current every day Tobacco Type: cigarettes Years smoked: 60 Smoking risk assessment performed?: Yes Alcohol Intake: current Alcohol Intake frequency: holidays/special occasions only Alcohol type: beer Drug use: Never Substance use type: does not use Housing: house Do you feel safe at home: Yes Do you feel safe in your relationship?: Yes
[2024-05-27 14:44] LABS: Abs Immature Grans 0.04 10^3/uL (0.0-0.06); Absolute Basophil Count 0.04 10^3/uL (0.0-0.2); Absolute Eosinophil Count 0.19 10^3/uL (0.0-0.7); Absolute Lymphocyte Count 0.82 10^3/uL (1.2-3.4); Absolute Monocyte Count 0.83 10^3/uL (0.1-0.8); Absolute Neutrophil Count 6.38 10^3/uL (1.2-6.7); Basophils % 0.5 %; Eosinophils % 2.3 %; HCT 36.9 % (36.0-46.0); HGB 11.7 g/dL (11.2-15.7); Immature Grans % 0.5 %; Lymphocytes % 9.9 %; MCH 27.4 pg (27.0-33.0); MCHC 31.7 % (32.0-36.0); MCV 86 fL (80-95); MPV 10.8 fL (8.0-11.0); Neutrophils % 76.8 %; Platelet Count 170 10^3/uL (130-400); RBC 4.27 10^6/uL (3.93-5.22); RDW 13.9 % (11.7-14.6); RDW-SD 43.7 fL
[2024-05-27 14:57] LABS: INR 1.2 (0.9-1.1); PTT Activated 25.6 sec (23.6-32.8); Prothrombin Time 11.7 sec (9.1-11.1)
[2024-05-27] MEDS: ACETAMINOPHEN 1,000 MG/100 ML BTL 400 MG IVPB (14:58)
[2024-05-27] MEDS: Ondansetron 4 MG/2 ML VIAL IVP (14:59)
[2024-05-27] MEDS: Normal Saline 1,000 ML 1000 ML IV (14:59)
[2024-05-27 15:09] LABS: ALT 33 U/L (14-59); AST 25 U/L (15-37); Albumin 3.6 g/dL (3.4-5.0); Alkaline Phosphatase 60 U/L (46-116); Anion Gap 9.1 mmol/L (3-11); BUN 27 mg/dL (7-18); Bilirubin, Total 0.68 mg/dL (0.2-1.0); CO2 26.9 mmol/L (21.0-32.0); CREATININE 1.3 mg/dL (0.55-1.02); Calcium 9.2 mg/dL (8.5-10.1); Chloride 102 mmol/L (98-107); Estimated GFR 41.57 (mL/min/1.73m2); Glucose 124 mg/dL (74-106); Magnesium 1.4 mg/dL (1.8-2.4); NT-proBNP 1110 pg/mL (<300); Potassium 3.6 mmol/L (3.5-5.1); Sodium 138 mmol/L (136-145); TSH (W/Ref FT4) 2.39 uIU/mL (0.36-3.74); Total Protein 7.5 g/dL (6.4-8.2); Troponin I 10 ng/L (<or=51)
[2024-05-27 15:25] LABS: COVID-19 PCR Negative (Negative); Influenza A PCR Negative (Negative); Influenza B PCR Negative (Negative); RSV PCR Negative (Negative)
[2024-05-27 15:32] LABS: Source Nasopharynx
[2024-05-27 16:24] LABS: Bilirubin Negative (Negative); Blood Negative (Negative); Clarity Clear (Clear); Glucose Negative (Negative); Ketones Negative (Negative); Leukocyte Esterase Negative (Negative); Nitrite Negative (Negative); Urobilinogen 0.2 mg/dL (Up to 0.2); pH 5.5 (5-8)
[2024-05-27 16:51] LABS: Troponin I 13 ng/L (<or=51)
--- NOTE | 2024-05-27 17:00 | DI.CT_ITS ---
Exam(s) CT BRAIN NECK CTA EXAM: CT BRAIN NECK CTA CLINICAL HISTORY: dizziness headache. TECHNIQUE: Imaging Protocol: Axial CT angiography was performed with multi-slice acquisition and mu lti-planar and/or 3D reconstructions. CONTRAST MATERIAL: Intravenous: Omnipaque 350 contrast volume:85 mL COMPARISON: CT CT CHEST LOW DOSE CA SCREENING from 06/10/[address] HEAD WO from 12/18/2022 FINDINGS: The examination is limited due to patient motion artifact. CT Head W/O and W: Ventricles and Extra axial spaces: Normal in size and morphology for the patient's age. Hemorrhage: None. Cerebral parenchyma: No evidence of an acute territorial infarct. Midline shift: None. Brainstem/Cerebellum: Normal. Calvarium: Normal. Visualized Paranasal sinuses/Mastoids: No air-fluid levels are present. The mastoid air cells are cl ear. Soft Tissues: Unremarkable. Enhancement: Unremarkable. CTA Neck W: Common Carotid: Right: No dissection, occlusion or significant stenosis. Atherosclerotic calcification is seen in th e distal common carotid artery. Left: No dissection, occlusion or significant stenosis. External Carotid: Right: No occlusion or significant stenosis. Left: No occlusion or significant stenosis. Internal Carotid: Right: No dissection or occlusion. There is atherosclerotic calcification at the origin of the righ t internal carotid artery with approximately 50 percent stenosis. Left: No dissection or occlusion. There is marked atherosclerotic calcification at the origin of th e left internal carotid artery with severe stenosis. Vertebral Artery: Right: No dissection, occlusion or significant stenosis. Left: No dissection, occlusion or significant stenosis. Atherosclerotic calcification is seen in the left vertebral artery without significant stenosis. Lung Apices: There is a ground-glass infiltrate in the right lung apex. Bones: Within normal limits for the patient's age. Sternal wires are in place. Soft Tissues: Normal. Thyroid gland: Unremarkable. CTA Brain W: Internal Carotid Arteries: No evidence of dissection, occlusion or significant stenosis. There is at herosclerotic calcifications seen in the cavernous portions of the internal carotid arteries bilatera lly with less than 50 percent stenosis. Anterior Cerebral Arteries: Right: No aneurysm, occlusion or significant stenosis. Left: No aneurysm, occlusion or significant stenosis. Middle Cerebral Arteries: Right: No aneurysm, occlusion or significant stenosis. Left: No aneurysm, occlusion or significant stenosis. Posterior Cerebral Arteries: Right: No aneurysm, occlusion or significant stenosis. Left: No aneurysm, occlusion or significant stenosis. Vertebral Arteries: Right: No aneurysm, occlusion or significant stenosis. Left: No aneurysm, occlusion or significant stenosis. Basilar Artery: No aneurysm, occlusion or significant stenosis. IMPRESSION: 1. No large vessel occlusion or significant stenosis on the CT angiography of the head. 2. No acute intracranial process. 3. Atherosclerotic calcification at the origin of the left internal carotid artery causing severe amber nosis. 4. Right calcification at the origin of the right internal carotid artery resulting in approximately 50 percent stenosis. RADIATION DOSE DELIVERED: 2,253.22mGy.cm Total DLP DATA REPOSITORY: All CT scans at this facility are submitted to the National Radiology Data Registry (NRDR) Dose Index Registry (DIR) with the [employer] (ACR). RADIATION OPTIMIZATION: All CT scans at this facility use at least one of these dose optimization te chniques: automated exposure control; mA and/or kV adjustment per patient size (includes targeted exa ms where dose is matched to clinical indication); or iterative reconstruction.
[2024-05-27] MEDS: Meclizine 25 MG TAB PO (17:05)
[2024-05-27] MEDS: Normal Saline - Diluent 50 ML VIAL IJ (17:23)
[2024-05-27] MEDS: Omnipaque 350 MG/ML 100 ML BTL IJ (17:25)
== END 2024-05-27 18:54 | disposition home or self-care (01) ==
PROVIDERS: Emergency Provider Emergency Medicine; PCP Family Medicine
DX: R42 Dizziness and giddiness (principal); R51.9 Headache, unspecified; R19.7 Diarrhea, unspecified; I10 Essential (primary) hypertension; F17.210 Nicotine dependence, cigarettes, uncomplicated; Z95.2 Presence of prosthetic heart valve; Z79.82 Long term (current) use of aspirin
CPT/HCPCS: 70496; 70498; 80053; 87637; 93005; 96365; 96366; 96375; 99285; 71046; 81003; 83735; 83880; 84443; 84484; 85025; 85610; 85730; 93010; 99284; J0131; J2405; J3490

== ENCOUNTER → 2024-07-25 10:43 | Outpatient (BNVA) | payer MEDICARE, SELFPAY | PROVIDERS: PCP Family Medicine; Visit Provider Internal Medicine Cardiovascular Disease | DX: Z95.2 Presence of prosthetic heart valve (principal); I65.23 Occlusion and stenosis of bilateral carotid arteries; R53.83 Other fatigue | CPT/HCPCS: 99213 ==

== ENCOUNTER 2024-08-13 07:52 | Emergency (ER) | payer MEDICARE, SELFPAY ==
[2024-08-13] VITALS (22 sets, daily range): BP systolic 113–135; BP diastolic 29–44; PULSE 56–68; RESP 14–21; TEMP 36.7; O2SAT 93–96
--- NOTE | 2024-08-13 07:45 | RT.EKG_ITS ---
APPROVED REPORT Exam: Resting ECG Reason for Exam: Chest Pain Patient Location: E HR:60 bpm ECG Measurements Heart Rate 60 AXIS AR 226 P 33 QRSd 88 QRS 33 QT 408 T 44 QTc 410 Conclusion Sinus rhythm 60 Normal axis 1st degree block no stemi
--- NOTE | 2024-08-13 08:00 | DI.RAD_ITS ---
Exam(s) XR PORTABLE CHEST AP EXAM: XR PORTABLE CHEST AP CLINICAL HISTORY: Chest pain TECHNIQUE: 2D digital imaging was performed of the chest. One image was obtained. An AP view was ob tained. COMPARISON: CR XR CHEST 2V PA LATERAL from 05/27/2024 FINDINGS: MEDIASTINUM: Normal. HEART: Normal. There is an aortic valve prosthesis. PULMONARY VASCULATURE: Normal. LUNGS: Clear. PLEURAL SPACE: No pleural effusion or pneumothorax. BONE:Within normal limits for the patient's age. There are sternal wires present. OTHER FINDINGS:Normal. IMPRESSION: No acute pulmonary findings. DATA REPOSITORY: RADIATION DOSE DELIVERED:
--- NOTE | 2024-08-13 08:11 | W.ED.GENAD ---
Discharge Plan Disposition Patient Disposition: Home Condition: Stable Discharge Details Clinical Impression: Nausea, Pancreatitis Primary Care Provider: Babar Mclaughlin ED Provider: Vazquez Villegas Home Meds and New Rx's Prescriptions: New famotidine [Pepcid] 20 mg tablet 20 mg PO BID 14 Days Qty: 28 0RF No Action aspirin [Adult Aspirin Regimen] 81 mg tablet,delayed release (DR/EC) 81 mg PO DAILY multivitamin Tablet 1 tab PO DAILY acetaminophen 325 mg capsule 325 mg PO ONCE PRN epinephrine 0.3 mg/0.3 mL Auto-Injector 0.3 mg IM PRN PRN metoprolol tartrate 25 mg Tablet 25 mg PO DAILY escitalopram oxalate 20 mg tablet 20 mg PO DAILY Patient Comments: TAKE ONE TABLET BY MOUTH EVERY DAY (DME) OneTouch Verio test strips Strip MISCELLANEOUS Patient Comments: TEST BLOOD SUGAR 2 TIMES A DAY losartan-hydrochlorothiazide 100-25 mg tablet 1 tab PO DAILY Patient Comments: TAKE ONE TABLET BY MOUTH EVERY DAY Discharge Instructions Additional Instructions: Your pancreas enzyme is slightly elevated which is likely the cause of your symptoms. Eat bland foods and drink plenty of liquids. Advance your diet slowly as tolerated Return to the emergency department with severe discomfort, vomiting and unable to tolerate anything by mouth Start the prescription medication twice daily for the next 2 weeks HPI General Date/Time Provider Initiated Documentation: 08/13/24 07:58. Limitations to Documentation: no limitations. Information obtained by: patient. HPI Narrative: 79-year-old female with past medical history of aortic valve replacement, carotid artery stenosis, high blood pressure and presents for evaluation of chest pain. She reports that yesterday she had significant nausea and heartburn all day. She tried several home remedies without relief. She reports this morning she woke up with chest pain. No shortness of breath. Pain was mild and has already resolved. She did take a full dose aspirin this morning. She also was given Zofran by EMS. She reports that she feels much better at this time. Related Data Home Medications ?Medication ?Instructions ?Recorded ?Confirmed epinephrine 0.3 mg/0.3 mL 0.3 mg IM PRN PRN 12/31/20 08/13/24 injection, auto-injector metoprolol tartrate 25 mg tablet 25 mg PO DAILY 12/31/20 08/13/24 aspirin 81 mg tablet,delayed 81 mg PO DAILY 07/28/22 08/13/24 release (Adult Aspirin Regimen) blood sugar diagnostic (OneTouch 10/20/23 07/25/24 Verio test strips) escitalopram oxalate 20 mg tablet 20 mg PO DAILY 10/20/23 08/13/24 multivitamin 1 tab PO DAILY 12/22/23 08/13/24 acetaminophen 325 mg capsule 325 mg PO ONCE PRN 01/20/24 08/13/24 losartan 100 1 tab PO DAILY 05/27/24 08/13/24 mg-hydrochlorothiazide 25 mg tablet famotidine 20 mg tablet (Pepcid) 20 mg PO BID 2 weeks #28 tabs 08/13/24 Previous Rx's ?Medication ?Instructions ?Recorded famotidine 20 mg tablet (Pepcid) 20 mg PO BID 2 weeks #28 tabs 08/13/24 Allergies Allergy/AdvReac Type Severity Reaction Status Date / Time hornet venom Allergy Severe Anaphylaxis Verified 08/13/24 08:07 latex Allergy RASH Verified 08/13/24 08:07 adhesive tape AdvReac Skin Rash Verified 08/13/24 08:07 General Stated Complaint: Chest Pain JOSE JUAN: 2 Exam Narrative Exam Narrative: Review of Systems: All systems reviewed & are unremarkable except as noted in HPI and below Well-developed, no acute distress NCAT No carotid bruit RRR no appreciable murmur Unlabored respiratory effort no hypoxia or tachypnea, clear bilaterally Nondistended abdomen soft nontender Extremities w/o edema Course Vital Signs Vital signs: Vital Signs Temperature 36.7 C 08/13/24 07:56 Pulse 62 08/13/24 07:56 Respiratory Rate 17 08/13/24 07:56 Blood Pressure 135/41 L 08/13/24 07:56 Pulse Oximetry 94 08/13/24 07:56 Temperature 36.7 C 08/13/24 07:56 Temperature Source Oral 08/13/24 07:56 Pulse 62 08/13/24 07:56 Respiratory Rate 21 08/13/24 08:03 Respiratory Effort Normal, Non-Labored 08/13/24 08:03 Respiratory Depth Normal 08/13/24 08:03 Respiratory Pattern Normal 08/13/24 08:03 Blood Pressure 135/41 L 08/13/24 07:56 Blood Pressure Position Sitting 08/13/24 07:56 Pulse Oximetry 94 08/13/24 07:56 Oxygen Delivery Method Room Air 08/13/24 07:56 Oxygen Flow Rate 0 08/13/24 07:56 Pain Level 1 08/13/24 07:56 Medical Decision Making Emergent evaluation of chest pain. Patient has risk factors including age, prior smoking history and hypertension. She had an or aortic valve replacement 2017 at that time did not have coronary artery disease. Chest pain sounds more GI related particularly with her nausea and heartburn which is likely secondary to the large Thanksgiving meal she consumed the day before. She has already had Zofran and full dose aspirin. Will give a dose of Pepcid and other GI remedies as needed but her symptoms are essentially resolved after the Zofran. Her EKG was reviewed and independently interpreted: Sinus 60 normal axis no acute ischemic changes. Have a low suspicion for heart failure, ACS or dissection. Will check lab work to evaluate given her risk factors. Lab work reviewed. Serial troponins are not elevated. Chest x-ray does not reveal an acute cardiopulmonary process. Her BNP is slightly elevated but not significant for this patient. Her creatinine is at baseline. Her lipase is slightly elevated. I suspect that some mild pancreatitis is the cause of her symptoms for the last 2 days. After Pepcid she reports improvement in her symptoms and she is tolerating p.o. Recommend dietary changes and advance diet slowly as tolerated. Recommend Pepcid twice daily, prescription sent to the pharmacy. Recommend close follow-up with PCP. Return precautions advised. Discharged in good condition. Quality:SDOH Health Related Social Needs: No Data to Display PFSH All Active Problems (Updated 08/13/24 @ 09:34 by Vazquez Villegas MD) Pancreatitis (Chronic) Nausea (Acute) Fatigue (Acute) Change in voice (Acute) Rotator cuff tear, right (Acute) Arthritis of right glenohumeral joint (Acute) Arthropathy of left shoulder (Acute) Left shoulder pain (Acute) Leukocytosis (Acute) Medical History Pain in buttock Nodule of right lung Left knee pain Depressive disorder Abnormal CT scan, chest Change in skin mole Bilateral carotid artery stenosis Aortic valve stenosis, nonrheumatic Aneurysm Abnormal radiograph Chronic GERD Depression Tubular adenoma of colon (~11/06/22) Abdominal bloating Chronic nausea Chest pain Overweight Family history of colon cancer Rheumatoid arthritis Nicotine dependence Motion sickness Low back pain [place] lesion of lung Aortic stenosis HTN (hypertension) Surgical History History of throat surgery cyst removed S/P AVR (aortic valve replacement) (~03/20/17) History of colonoscopy with polypectomy (~11/06/22) History of colonoscopy 08/26/2016 @[facility] 11/19/2009 @[facility] with polypectomies= Hyperplastic History of tonsillectomy Family History Mother Cancer Father Stroke Cancer Social History Smoking/Tobacco Use Status: Current every day Tobacco Type: cigarettes Years smoked: 60 Smoking risk assessment performed?: Yes Alcohol Intake: current Alcohol Intake frequency: holidays/special occasions only Alcohol type: beer Drug use: Never Substance use type: does not use Housing: house Do you feel safe at home: Yes Do you feel safe in your relationship?: Yes
[2024-08-13] MEDS: Normal Saline Flush 10 ML SYR IVP (08:17)
[2024-08-13] MEDS: Famotidine 20 MG/2 ML VIAL IVP (08:17)
[2024-08-13 08:20] LABS: Abs Immature Grans 0.06 10^3/uL (0.0-0.06); Absolute Eosinophil Count 0.42 10^3/uL (0.0-0.7); Absolute Lymphocyte Count 4.08 10^3/uL (1.2-3.4); Absolute Monocyte Count 1.15 10^3/uL (0.1-0.8); Basophils % 0.6 %; HCT 37.5 % (36.0-46.0); HGB 11.7 g/dL (11.2-15.7); Immature Grans % 0.4 %; Lymphocytes % 29.3 %; MCH 27.4 pg (27.0-33.0); MCHC 31.2 % (32.0-36.0); MCV 88 fL (80-95); MPV 11.2 fL (8.0-11.0); Monocytes % 8.3 %; Neutrophils % 58.4 %; Platelet Count 250 10^3/uL (130-400); RBC 4.27 10^6/uL (3.93-5.22); RDW 14.5 % (11.7-14.6); RDW-SD 46.7 fL; WBC 13.91 10^3/uL (4.4-10.8)
[2024-08-13 08:21] LABS: Absolute Basophil Count 0.08 10^3/uL (0.0-0.2); Absolute Neutrophil Count 8.12 10^3/uL (1.2-6.7)
--- NOTE | 2024-08-13 08:41 | DI.VRAD_ITS ---
PROCEDURE INFORMATION: Exam: XR Chest Exam date and time: 08/13/2024 8:25 AM Age: 79 years old Clinical indication: Other: Chest pain TECHNIQUE: Imaging protocol: Radiologic exam of the chest. Views: 1 view. COMPARISON: CR XR CHEST 2V PA LATERAL 05/27/2024 3:33 PM FINDINGS: Lungs: Unremarkable. No consolidation. Pleural spaces: Unremarkable. No pleural effusion. No pneumothorax. Heart/Mediastinum: Unremarkable. No cardiomegaly. Bones/joints: Median sternotomy IMPRESSION: No acute process Dictated and Authenticated by: Ayan Nichols MD. Ordering:[facility] Bakari Nolan MD
[2024-08-13 08:42] LABS: ALT 38 U/L (14-59); AST 20 U/L (15-37); Albumin 3.1 g/dL (3.4-5.0); Alkaline Phosphatase 91 U/L (46-116); Anion Gap 11.6 mmol/L (3-11); BUN 54 mg/dL (7-18); Bilirubin, Total 0.17 mg/dL (0.2-1.0); CO2 24.4 mmol/L (21.0-32.0); CREATININE 1.2 mg/dL (0.55-1.02); Chloride 105 mmol/L (98-107); Estimated GFR 45.76 (mL/min/1.73m2); Glucose 127 mg/dL (74-106); Lipase 104 U/L (<78); NT-proBNP 616 pg/mL (<300); Potassium 4.1 mmol/L (3.5-5.1); Sodium 141 mmol/L (136-145); Total Protein 7.4 g/dL (6.4-8.2); Troponin I 11 ng/L (<or=51)
[2024-08-13 08:48] LABS: Calcium 9.5 mg/dL (8.5-10.1)
[2024-08-13 09:24] LABS: Troponin I 8 ng/L (<or=51)
== END 2024-08-13 09:50 | disposition home or self-care (01) ==
PROVIDERS: Emergency Provider Emergency Medicine; PCP Family Medicine
DX: R07.9 Chest pain, unspecified (principal); R11.0 Nausea; K85.90 Acute pancreatitis without necrosis or infection, unspecified; I10 Essential (primary) hypertension; Z95.2 Presence of prosthetic heart valve; Z79.82 Long term (current) use of aspirin; F17.210 Nicotine dependence, cigarettes, uncomplicated
CPT/HCPCS: 36415; 80053; 83690; 93005; 96374; 99285; 71045; 83880; 84484; 85025; 93010; 99284

== ENCOUNTER 2024-11-14 10:03 | Emergency (ER) | payer MEDICARE, SELFPAY ==
[2024-11-14] VITALS (55 sets, daily range): BP systolic 117–145; BP diastolic 35–62; PULSE 55–76; RESP 13–25; TEMP 36.6; O2SAT 94–98
--- NOTE | 2024-11-14 10:04 | RT.EKG_ITS ---
APPROVED REPORT Exam: Resting ECG Reason for Exam: SOB/ Chest Pain Patient Location: E HR:61 bpm ECG Measurements Heart Rate 61 AXIS AK 237 P 65 QRSd 83 QRS 77 QT 417 T 68 QTc 420 Conclusion Sinus rhythm, rate 61 1st degree HB, AK interval 237ms No STEMI No significant changes from priors
--- NOTE | 2024-11-14 10:24 | ED.GENADUL_ITS ---
Discharge Plan Disposition Patient Disposition: Home Condition: Stable Discharge Details Clinical Impression: Pancreatitis, Chest pain of uncertain etiology Primary Care Provider: Babar Mclaughlin ED Provider: Ting Bhatia Home Meds and New Rx's Prescriptions: Continued aspirin [Adult Aspirin Regimen] 81 mg tablet,delayed release (DR/EC) 81 mg PO DAILY multivitamin Tablet 1 tab PO DAILY acetaminophen 325 mg capsule 325 mg PO ONCE PRN epinephrine 0.3 mg/0.3 mL Auto-Injector 0.3 mg IM PRN PRN metoprolol tartrate 25 mg Tablet 25 mg PO DAILY escitalopram oxalate 20 mg tablet 20 mg PO DAILY Patient Comments: TAKE ONE TABLET BY MOUTH EVERY DAY (DME) OneTouch Verio test strips Strip MISCELLANEOUS Patient Comments: TEST BLOOD SUGAR 2 TIMES A DAY losartan-hydrochlorothiazide 100-25 mg tablet 1 tab PO DAILY Patient Comments: TAKE ONE TABLET BY MOUTH EVERY DAY prednisone 5 mg tablet 5 mg PO DAILY Patient Comments: TAKE THREE TABLETS BY MOUTH EVERY DAY WITH FOOD OR MILK apple cider vinegar 1 tab PO DAILY omega 0-awu-toa-fish oil [Fish Oil] 1,200 (144-216) mg capsule 1 cap PO DAILY (DME) lancets [OneTouch Delica Plus Lancet] 33 gauge misc MISCELLANEOUS Patient Comments: TEST BLOOD SUGAR TWO TIMES A DAY Discharge Instructions Instructions: Acute pancreatitis, Chest Pain, Adult ED Additional Instructions: You were seen in the emergency department for your intermittent chest pain ongoing for 2 weeks. Your EKG is normal and your cardiac enzymes are not elevated indicating this is not causing any damage to the heart. You have no significant murmur on exam or bruit to your carotid arteries I do not suspect this pathologies or cause of pain. You do have mildly elevated lipase which is a pancreas enzyme without evidence for gallbladder obstruction which can sometimes cause elevated lipase. You likely need to follow-up with your primary care provider to schedule an MRCP or an MRI of your abdomen that assesses the pancreas for any kind of cystic pathology that could be causing elevated lipase in the setting of pancreatitis without alcohol abuse. It is reasonable for you to follow-up with your cardiology provider for updated stress test and echocardiogram as well as the results of your ultrasound of your carotid study. Please continue all medications as normal, you may want to try bowel rest and clear fluid diet for the next 1 to 2 days to see if this improves your pain, you can try an [id number] acid reflux medicine like famotidine to help with any pains of gastritis. Please return to the emergency department for any severe increase in chest pain especially with shortness of breath and near fainting or any other emergent concerns. Referrals: [facility] [Provider Group] Babar Mclaughlin [Primary Care Provider] - Discharge Data Discharge Date/Time-TO BE ENTERED AT DEPARTURE: 11/14/24 17:18 HPI General Date/Time Provider Initiated Documentation: 11/14/24 10:14 . HPI Narrative: 79 year-old female presents to ED today by POV/ambulating with a chief complaint of intermittent chest pain for the past couple weeks, acute onset this morning around 6 AM with history of aortic stenosis with valve replacement 9 years ago and significant carotid stenosis bilaterally. Quality described as intermittent chest pains, shortness of breath, dizziness, no radiation to cough, respiratory distress, syncope, nausea or vomiting, bowel or urinary changes, endorses stomach problems ambiguously. Severity is described as 6/10. Palliating factors include nothing specific attempted. Provoking factors include nothing specific. Events leading up to the incident/Associated Symptoms: Patient does see Cardiology yearly, states it has been a long time since any ECHO or stress test. Patient not anticoagulated. Related Data Home Medications ?Medication ?Instructions ?Recorded ?Confirmed epinephrine 0.3 mg/0.3 mL 0.3 mg IM PRN PRN 12/31/20 11/14/24 injection, auto-injector metoprolol tartrate 25 mg tablet 25 mg PO DAILY 12/31/20 11/14/24 aspirin 81 mg tablet,delayed 81 mg PO DAILY 07/28/22 11/14/24 release (Adult Aspirin Regimen) blood sugar diagnostic ([facility] 10/20/23 11/14/24 Verio test strips) escitalopram oxalate 20 mg tablet 20 mg PO DAILY 10/20/23 11/14/24 multivitamin 1 tab PO DAILY 12/22/23 11/14/24 acetaminophen 325 mg capsule 325 mg PO ONCE PRN 01/20/24 11/14/24 losartan 100 1 tab PO DAILY 05/27/24 11/14/24 mg-hydrochlorothiazide 25 mg tablet apple cider vinegar 1 tab PO DAILY 11/14/24 11/14/24 lancets 33 gauge (OneTouch Delica 11/14/24 11/14/24 Plus Lancet) omega 0-rto-kqi-fish oil 1,200 mg 1 cap PO DAILY 11/14/24 11/14/24 (144 mg-216 mg) capsule (Fish Oil) prednisone 5 mg tablet 5 mg PO DAILY 11/14/24 11/14/24 Allergies Allergy/AdvReac Type Severity Reaction Status Date / Time hornet venom Allergy Severe Anaphylaxis Verified 11/14/24 10:10 latex Allergy RASH Verified 11/14/24 10:10 adhesive tape AdvReac Skin Rash Verified 11/14/24 10:10 General Stated Complaint: Chest Pain JOSE JUAN: 3 Review of Systems All systems reviewed & are unremarkable except as noted in HPI and below Exam Narrative Exam Narrative: GENERAL APPEARANCE: Well-nourished, non-toxic, awake and alert, atraumatic, no acute distress. SKIN: Warm, pink, dry, intact, without rashes/lesions/ulcerations. HEAD: Normocephalic, atraumatic, normal hair distribution for gender/age. EYES: Normal conjunctiva, no exudates on lids/lashes. ENT: Nares patent, no circumoral cyanosis, no facial swelling NECK: Supple, trachea midline, painless cervical ROM. LUNGS/CHEST: Lungs CTA bilaterally- no rhonchi/rales/wheezes, non-labored respirations, normal A/P diameter, symmetrical expansion, no chest wall deformity HEART (CV/PV): Regular rate and rhythm without murmur, no peripheral edema, no JVD. ABDOMEN: Soft, non-distended, no guarding, epigastric tenderness. MSK: Normal ROM, no swelling/deformity to bilateral UEs or LEs, moving all extremities without weakness, no cyanosis, spine midline without tenderness, normal curvature. NEURO: Mental Status AAOx4 - alert to person, place, time, events No facial droop, no forehead involvement. Motor: No focal weakness - strength 5/5 in bilateral UEs and LEs, proximal and distal, symmetric. Sensory: sensation intact to light touch globally. Gait normal: patient ambulated without ataxia into ED room. PSYCH: euthymic, cooperative, pleasant, appropriate speech Course Vital Signs Vital signs: Vital Signs Temperature 36.6 C 11/14/24 10:05 Pulse 67 11/14/24 10:05 Respiratory Rate 20 11/14/24 10:05 Blood Pressure 137/39 L 11/14/24 10:05 Pulse Oximetry 96 11/14/24 10:05 Temperature 36.6 C 11/14/24 10:05 Temperature Source Oral 11/14/24 10:05 Pulse 67 11/14/24 10:05 Respiratory Rate 20 11/14/24 10:17 Respiratory Effort Non-Labored 11/14/24 10:17 Respiratory Depth Normal 11/14/24 10:17 Respiratory Pattern Normal 11/14/24 10:17 Blood Pressure 137/39 L 11/14/24 10:05 Blood Pressure Position Sitting 11/14/24 10:05 Pulse Oximetry 96 11/14/24 10:05 Oxygen Delivery Method Room Air 11/14/24 10:05 Oxygen Flow Rate 0 11/14/24 10:05 Pain Level 1 11/14/24 10:05 Medical Decision Making This dictation utilizes [id number] dictation software and may contain unedited grammatical errors. 79 year-old female presents to ED today by POV/ambulating with a chief complaint of intermittent chest pain for the past couple weeks, acute onset this morning around 6 AM with history of aortic stenosis with valve replacement 9 years ago and significant carotid stenosis bilaterally. Quality described as intermittent chest pains, shortness of breath, dizziness, no radiation to cough, respiratory distress, syncope, nausea or vomiting, bowel or urinary changes, endorses stomach problems ambiguously. Severity is described as 6/10. Palliating factors include nothing specific attempted. Provoking factors include nothing specific. Events leading up to the incident/Associated Symptoms: Patient does see Cardiology yearly, states it has been a long time since any ECHO or stress test. Patients' medical history: Bilateral carotid artery stenosis, aortic valve stenosis with bovine valvular replacement, history of aneurysm, hypertension. Family and social history: Endorses family history of colon cancer, lives at home with , states she does go up and down stairs often. Pertinent exam findings / vital signs include benign cardiopulmonary exam without irregular rate or rhythm, no carotid bruit bilaterally, neuro intact, mild epigastric tenderness, nontoxic and afebrile, lungs CTA diffusely. Differential / pathologies of concern include ACS, carotid stenosis, biliary colic, gastritis, unlikely PE. Diagnostic studies of: -CBC, CMP, magnesium, serial troponins, BNP, lipase, EKG, chest x-ray, US RUQ, US carotids. -CBC shows no leukocytosis, no anemia -CMP shows no actionable abnormality, LFTs WNL -Lipase elevated to 142, consider pancreatitis, reflexing US RUQ -BNP decresaed from priors -Serial trop's negative, do not suspect ACS -CXR shows no acute pathology, known bovine valve -EKG shows sinus rhythm at 61 bpm with prolonged NC interval, narrow complex QRS with normal axis, other normal intervals, good R wave progression, no ST depressions or reciprocal elevations, no T wave inversions, consistent with priors -US RUQ shows no CBD dilatation, no gallbladder wall thickening -US Carotids shows no critical stenosis Interventions of: -243 mg chewable ASA. ED Course/Assessment/Plan: 79-year-old female presents with intermittent chest pain for 2 weeks, having worsening chest pain over the last 3 to 4 days with an episode this morning at 6 AM, went back to bed afterwards rates it 6 out of 10. Serial troponins are negative I do not suspect acute coronary syndrome, patient has known significant carotid stenosis. EKG is benign do not suspect demand ischemia, patient does not drink alcohol. Heart score is 4-moderate risk, discussed possible admission with the patient and they prefer to follow-up closely with outpatient studies, I recommend a repeat stress test and echocardiogram, as well as arrange for an outpatient study of MRCP for further idiopathically elevated lipase. I stressed strict return criteria for any worsening chest or abdominal pain, shortness of breath or other emergent concerns. Reviewed U/S- signed out to oncoming provider pending reads with likely discharge. Findings not consistent with ACS, choledocholithiasis, sepsis, serious infection, critical carotid stenosis. Disposition of Pancreatitis, Chest Pain of Uncertain Etiology Patient verbalized understanding of the plan and return to ED criteria and engaged in shared decision making. Medical Records Medical records reviewed: Yes I reviewed the patient's medical records. Imaging Data Radiologic Study: Attestation: I personally reviewed and interpreted this imaging study as follows: Imaging: X-Ray Radiologist's impression: EXAM: XR CHEST 2V PA LATERAL CLINICAL HISTORY: Chest pain x2 weeks. TECHNIQUE: 2D digital imaging was performed. COMPARISON: CR,XR XR PORTABLE CHEST AP from 08/13/2024 FINDINGS: 2 views: Again noted are sternotomy wires and a prosthetic aortic valve. Heart size is normal. The mediastinum is not widened. Lungs are clear. No infiltrates nor pleural effusions. No evidence of pulmonary edema. IMPRESSION: No acute pulmonary findings.Sternotomy wires and prosthetic aortic valve noted Radiologic Study #2: Attestation: I personally reviewed and interpreted this imaging study as follows: Imaging: Ultrasound My impression: no biliary pathology- CBD WNL, no wall thickening Radiologist's impression: EXAM: US ABDOMEN LIMITED CLINICAL HISTORY: US RUQ; elev lipase, epigastric pain TECHNIQUE: Ultrasound abdomen performed using standard protocol. COMPARISON: CT CT CHEST/ABD/PEL W from 10/20/2023 FINDINGS: LIVER: Enlarged at 19 cm in length. Moderate to severe hepatic steatosis. No focal lesions. No focal liver lesions are seen. GALLBLADDER: No evidence of cholelithiasis. No evidence of wall thickening. No pericholecystic fluid identified. WHITE'S SIGN: Negative. BILIARY SYSTEM: No intrahepatic or extrahepatic biliary ductal dilation. Right KIDNEY: Normal in size. No evidence of renal calculi. No evidence of hydronephrosis. Two small right renal cysts. No suspicious renal mass identified. PANCREAS: Partially obscured. ASCITES: None seen. IMPRESSION: Enlarged liver with moderate to severe hepatic steatosis. Radiologic Study #3: Attestation: I personally reviewed and interpreted this imaging study as follows: Imaging: Ultrasound My impression: adequate flow in bilat carotids Radiologist's impression: EXAM: US CAROTID CLINICAL HISTORY: known stenosis, dizziness. TECHNIQUE: Ultrasound carotids performed using grayscale, color-flow, and spectral Doppler imaging. COMPARISON: CT CT CHEST/ABD/PEL W from 10/20/[address] BRAIN NECK CTA from 05/27/2024 FINDINGS: RIGHT CAROTID ARTERY: Common carotid: Plaque: Minimal. Internal carotid: Moderate amount of calcific plaque proximally. Velocity elevation: Velocity elevation consistent with 50-69 percent stenosis. External carotid: Calcification proximally. Elevated systolic velocity. LEFT CAROTID ARTERY: Common carotid: Plaque: Plaque at the common carotid bulb. Internal carotid: Focal heavy calcific plaque proximally. Velocity elevation: Elevated velocity measurements corresponding to 50-69 percent stenosis. The findings on CT or consistent with a severe stenosis. External carotid: Plaque proximally. Elevated systolic velocity. VERTEBRAL ARTERIES: Antegrade flow. IMPRESSION: Calcific plaque at both proximal internal carotid arteries, left greater than right. Velocity measurements bilateral correspond to 50-69 percent stenosis however based on prior CT the stenosis on the left is severe. Lab Data Lab results reviewed: Yes I reviewed the patient's lab results. Labs: Laboratory Tests Range/Units 11/14/24 11/14/24 10:22 11:25 WBC (4.4-10.8) 10^3/uL 10.77 RBC (3.93-5.22) 10^6/uL 4.86 Hgb (11.2-15.7) g/dL 14.0 Hct (36.0-46.0) % 43.5 MCV (80-95) fL 90 MCH (27.0-33.0) pg 28.8 MCHC (32.0-36.0) % 32.2 RDW (11.7-14.6) % 13.9 Plt Count (130-400) 10^3/uL 190 MPV (8.0-11.0) fL 11.0 Immature Gran % % 0.3 Neutrophils % % 62.8 Lymphocytes % % 28.6 Monocytes % % 5.3 Eosinophils % % 2.4 Basophils % % 0.6 Nucleated RBC % (0.0-0.3) % 0.0 Absolute Neutrophils (1.2-6.7) 10^3/uL 6.76 H Absolute Lymphocytes (1.2-3.4) 10^3/uL 3.08 Absolute Monocytes (0.1-0.8) 10^3/uL 0.57 Absolute Eosinophils (0.0-0.7) 10^3/uL 0.26 Absolute Basophils (0.0-0.2) 10^3/uL 0.07 Sodium (136-145) mmol/L 143 Potassium (3.5-5.1) mmol/L 4.1 Chloride (98-107) mmol/L 105 Carbon Dioxide (21.0-32.0) mmol/L 28.8 Anion Gap (3-11) mmol/L 9.2 BUN (7-18) mg/dL 39 H Creatinine (0.55-1.02) mg/dL 1.1 H Est GFR (CKD-EPI 2020) (mL/min/1.73m2) 50.80 Glucose (74-106) mg/dL 191 H Calcium (8.5-10.1) mg/dL 10.0 Magnesium (1.8-2.4) mg/dL 1.6 L Total Bilirubin (0.2-1.0) mg/dL 0.38 AST (15-37) U/L 27 ALT (14-59) U/L 41 Alkaline Phosphatase (46-116) U/L 68 Troponin I (<or=51) ng/L 8 7 NT-Pro-B Natriuret Pep (<300) pg/mL 435 H Total Protein (6.4-8.2) g/dL 7.6 Albumin (3.4-5.0) g/dL 3.8 Lipase (<78) U/L 142 H Quality:SDOH Health Related Social Needs: No Data to Display PFSH All Active Problems (Updated 11/14/24 @ 15:29 by ELOISA Cristobal) Chest pain of uncertain etiology (Acute) Pancreatitis (Chronic) Fatigue (Acute) Change in voice (Acute) Rotator cuff tear, right (Acute) Arthritis of right glenohumeral joint (Acute) Arthropathy of left shoulder (Acute) Left shoulder pain (Acute) Leukocytosis (Acute) Medical History Pain in buttock Nodule of right lung Left knee pain Depressive disorder Abnormal CT scan, chest Change in skin mole Bilateral carotid artery stenosis Aortic valve stenosis, nonrheumatic Aneurysm Abnormal radiograph Chronic GERD Depression Tubular adenoma of colon (~11/06/22) Abdominal bloating Chronic nausea Chest pain Overweight Family history of colon cancer Rheumatoid arthritis Nicotine dependence Motion sickness Low back pain [place] lesion of lung Aortic stenosis HTN (hypertension) Surgical History History of throat surgery cyst removed S/P AVR (aortic valve replacement) (~03/20/17) History of colonoscopy with polypectomy (~11/06/22) History of colonoscopy 08/26/2016 @[facility] 11/19/2009 @[facility] with polypectomies= Hyperplastic History of tonsillectomy Family History Mother Cancer Father Stroke Cancer Social History Smoking/Tobacco Use Status: Current every day Tobacco Type: cigarettes Years smoked: 60 Smoking risk assessment performed?: Yes Alcohol Intake: current Alcohol Intake frequency: holidays/special occasions only Alcohol type: beer Drug use: Never Substance use type: does not use Housing: house Do you feel safe at home: Yes Do you feel safe in your relationship?: Yes
--- NOTE | 2024-11-14 10:30 | DI.RAD_ITS ---
Exam(s) XR CHEST 2V PA LATERAL EXAM: XR CHEST 2V PA LATERAL CLINICAL HISTORY: Chest pain x2 weeks. TECHNIQUE: 2D digital imaging was performed. COMPARISON: CR,XR XR PORTABLE CHEST AP from 08/13/2024 FINDINGS: 2 views: Again noted are sternotomy wires and a prosthetic aortic valve. Heart size is normal. The mediastinum is not widened. Lungs are clear. No infiltrates nor pleural effusions. No evidence of pulmonary edema. IMPRESSION: No acute pulmonary findings.Sternotomy wires and prosthetic aortic valve noted DATA REPOSITORY: RADIATION DOSE DELIVERED:
[2024-11-14] MEDS: Aspirin 81 MG CHEW 324 MG CH (10:37)
[2024-11-14 10:47] LABS: Abs Immature Grans 0.03 10^3/uL (0.0-0.06); Absolute Basophil Count 0.07 10^3/uL (0.0-0.2); Absolute Eosinophil Count 0.26 10^3/uL (0.0-0.7); Absolute Lymphocyte Count 3.08 10^3/uL (1.2-3.4); Absolute Monocyte Count 0.57 10^3/uL (0.1-0.8); Absolute Neutrophil Count 6.76 10^3/uL (1.2-6.7); Basophils % 0.6 %; Eosinophils % 2.4 %; HCT 43.5 % (36.0-46.0); Immature Grans % 0.3 %; Lymphocytes % 28.6 %; MCH 28.8 pg (27.0-33.0); MCHC 32.2 % (32.0-36.0); MCV 90 fL (80-95); Monocytes % 5.3 %; Neutrophils % 62.8 %; Platelet Count 190 10^3/uL (130-400); RBC 4.86 10^6/uL (3.93-5.22); RDW 13.9 % (11.7-14.6); RDW-SD 45.1 fL; WBC 10.77 10^3/uL (4.4-10.8)
[2024-11-14 11:14] LABS: ALT 41 U/L (14-59); AST 27 U/L (15-37); Albumin 3.8 g/dL (3.4-5.0); Alkaline Phosphatase 68 U/L (46-116); Anion Gap 9.2 mmol/L (3-11); BUN 39 mg/dL (7-18); Bilirubin, Total 0.38 mg/dL (0.2-1.0); CO2 28.8 mmol/L (21.0-32.0); CREATININE 1.1 mg/dL (0.55-1.02); Chloride 105 mmol/L (98-107); Glucose 191 mg/dL (74-106); Lipase 142 U/L (<78); Magnesium 1.6 mg/dL (1.8-2.4); NT-proBNP 435 pg/mL (<300); Potassium 4.1 mmol/L (3.5-5.1); Sodium 143 mmol/L (136-145); Total Protein 7.6 g/dL (6.4-8.2); Troponin I 8 ng/L (<or=51)
--- NOTE | 2024-11-14 11:15 | DI.US_ITS ---
Exam(s) US ABDOMEN LIMITED EXAM: US ABDOMEN LIMITED CLINICAL HISTORY: US RUQ; elev lipase, epigastric pain TECHNIQUE: Ultrasound abdomen performed using standard protocol. COMPARISON: CT CT CHEST/ABD/PEL W from 10/20/2023 FINDINGS: LIVER: Enlarged at 19 cm in length. Moderate to severe hepatic steatosis. No focal lesions. No foc al liver lesions are seen. GALLBLADDER: No evidence of cholelithiasis. No evidence of wall thickening. No pericholecystic fluid identified. WHITE'S SIGN: Negative. BILIARY SYSTEM: No intrahepatic or extrahepatic biliary ductal dilation. Right KIDNEY: Normal in size. No evidence of renal calculi. No evidence of hydronephrosis. Two small right renal cysts. No suspicious renal mass identified. PANCREAS: Partially obscured. ASCITES: None seen. IMPRESSION: Enlarged liver with moderate to severe hepatic steatosis. DATA REPOSITORY:
--- NOTE | 2024-11-14 11:30 | DI.US_ITS ---
Exam(s) US CAROTID EXAM: US CAROTID CLINICAL HISTORY: known stenosis, dizziness. TECHNIQUE: Ultrasound carotids performed using grayscale, color-flow, and spectral Doppler imaging. COMPARISON: CT CT CHEST/ABD/PEL W from 10/20/[address] BRAIN NECK CTA from 05/27/2024 FINDINGS: RIGHT CAROTID ARTERY: Common carotid: Plaque: Minimal. Internal carotid: Moderate amount of calcific plaque proximally. Velocity elevation: Velocity elevati on consistent with 50-69 percent stenosis. External carotid: Calcification proximally. Elevated systolic velocity. LEFT CAROTID ARTERY: Common carotid: Plaque: Plaque at the common carotid bulb. Internal carotid: Focal heavy calcific plaque proximally. Velocity elevation: Elevated velocity measu rements corresponding to 50-69 percent stenosis. The findings on CT or consistent with a severe steno sis. External carotid: Plaque proximally. Elevated systolic velocity. VERTEBRAL ARTERIES: Antegrade flow. IMPRESSION: Calcific plaque at both proximal internal carotid arteries, left greater than right. Velocity measure ments bilateral correspond to 50-69 percent stenosis however based on prior CT the stenosis on the le ft is severe. Criteria for Carotid Stenosis: Normal: ICA PSV <125 cm/s no plaque or intimal thickening is visible. <50% stenosis: ICA PSV <125 cm/s and plaque or intimal thickening is visible. 50-69% stenosis: ICA PSV is 125-250 cm/s and plaque is visible. >70% stenosis to near occlusion: ICA PSV >250 cm/s with visible plaque and luminal narrowing. DATA REPOSITORY:
[2024-11-14] MEDS: MAGNESIUM SULFATE 2 GM/50 ML BAG IV_INF (11:31)
[2024-11-14 11:46] LABS: Troponin I 7 ng/L (<or=51)
--- NOTE | 2024-11-14 16:46 | ED.FU.B_ITS ---
Follow Up Plan: Handoff report received from ELOISA Loco, daytime CLARE with US results pending; discharge instructions already written. Please see his note for HPI, physical exam, and workup. I did review US results; no acute abdominal process requiring additional imaging or emergent workup at this time. Reviewed discharge instructions with patient, including importance of follow-up with cardiology and PCP for further evaluation/management of symptoms. She voices agreement with plan of care. Imaging and Studies Imaging and Studies Study information below may be from another EMR and interpreted by another provider. Please see original notes in EMR for more complete details. EKG Image & Interpretation: EKG Interpretation Report 11/14/24 10:04 EKG Summary: EKG PATIENT NAME: Vikas Peralta #: [id number] ORDERING PROVIDER: Selene Bates M.D. PRIMARY CARE PROVIDER:ADRIEL MCLAUGHLIN DATE/TIME OF SERVICE: 07/28/22 1111 : 1945ERFORMING LOCATION: .CARD APPROVED REPORT Exam: Resting ECG Reason for Exam: chest pain Patient Location: O HR:62 bpm ECG Measurements Heart Rate 62 AXIS [place] 202 P 69 QRSd 85 QRS 32 QT 427 T41 QTc 434 Conclusion Sinus rhythm...normal P axis, V-rate 50- 99 Borderline low voltage, extremity leads...all extremity leads <0.6mV Otherwise normal Stress Test Interpretation: Myocardial Perfusion Scan Nuc Med 04/21/22 09:15 Stress Test Summary: Patient Name: Vikas Peralta #: [id number]: DI Ordering Provider: Adriel MclaughlinAccount #: [id number]: REG CLI Primary Care Provider: Adriel MclaughlinDate of Exam: 04/21/22Sex: F Admission Date: 04/21/22 : 1945 Age: 77 APPROVED REPORT Exam: Pharmacologic Patient Location: Out-Patient Room/Bed: Stress Nurse: Stefania Riggs RN Ordering Provider:ADRIEL MCLAUGHLIN, Contact Number: [phone] BMI: 31.27 Baseline Rhythm: Sinus Rhythm Comment: 1st degree AV block Indications: Chest pain, hx coronary/valvular heart disease Medical History Medical History: CVD, hypertension, diabetes, smoker (current) Cardiac Medications: Metoprolol tartrate, lisinopril-HCTZ, aspirin, omeprazole Allergies: Hornets, adhesive Cardiac Risk Factors: Hypertension, diabetes, smoker (current) Previous Cardiac Procedures: AVR Pretest Chest Pain Characteristics: None Exercise History: Sedentary Physical Disabilities: None Lung Sounds: Clear to auscultation Heart Sounds: Regular Stress Test Details Test: Exercise stress converted to pharmacologic stress due to failure to obtain a diagnostic stress test. Reason for pharmacologic stress test: changed from exercise stress test due to inability to reach target heart rate. Nuclear Acquisition: Rest Tc-99m/Stress Tc-99m 1 day Rest Isotope: Tc-99m Sestamibi. Dose: 9.5 Date: 04/21/2022 Injection Time: 0900 Stress Isotope: Tc-99m Sestamibi. Dose: 30.0 Date: 04/21/2022 Injection Time: 1145 HR Resting HR Supine: 59 bpmMax Heart Rate (APMHR): 142.886645 bpm Resting HR Standin bpmTarget HR (85% APMHR): 120.420581 bpm Max HR Achieved: 114 bpm % of APMHR: 80.28 Recovery HR: 81 bpm Comment: Metoprolol tartrate held for 24 hrs per pt BP Resting BP Supine: 146/80 mmHg Resting BP Standin/56 mmHg Max BP: 160/54 mmHg Recovery BP: 146/52 mmHg BP response to stress: Normal blood pressure response to stress. ECG Resting ECG: Sinus rhythm, 1st degree AV block Ectopy: None Stress ECG: Sinus tachycardia, 1st degree AV block ST Change: Nondiagnostic low heart rate, No significant ST segment changes noted Arrhythmia: Rare PAC Recovery ECG: Sinus rhythm, 1st degree AV block Recovery ST Change: Nondiagnostic low heart rate, No significant ST segment changes noted Clinical Stress Symptoms: Dyspnea, chest tightness Exercise duration: 2 min40 sec Highest Stage Reached: Stage 1: 1.7 mph at 10% grade. Exercise capacity: 4.64 METs Angina Score: Non-Limiting Rate Pressure Product: [id number] Stress ECG Conclusion 1. The resting electrocardiogram showed first-degree AV block 2. Patient underwent testing using combination of low-level exercise and pharmacologic stress with regadenoson 3. Peak heart rate achieved was 80% of predicted for age 4. The electrocardiographic portion of the test was nondiagnostic due to inadequate heart rate 5. See MPI report Echo Interpretation: Echocardiogram Ultrasound 04/22/22 08:30 Echocardiogram Summary: Patient Name: Vikas Peralta #: [id number]: DI Ordering Provider: Dylan Arango NPAccount #: [id number]: REG CLI Primary Care Provider: Keenan Mclaughlin of Exam: 04/22/22Sex: F Admission Date: 04/22/22 : 1945 Age: 77 APPROVED REPORT EXAM: Comprehensive 2D, Doppler, and color-flow Echocardiogram Patient Location: Out-Patient Hair Spring Cutter: Diana Soler RDCS (AE) Indications: Bioprosthetic aortic valve, Chest tightness Other Information Study Quality: Adequate Conclusion Normal left ventricular wall thickness and chamber size. Estimated ejection fraction is 55 to 60%. Wall motion is normal Normal right ventricular size and systolic function Both atria are normal in size There is a bioprosthetic aortic valve with normal function. Mean gradient is 8 mmHg there is no aortic regurgitation Moderate mitral annular calcification with trace to mild regurgitation Normal tricuspid valve with trace regurgitation. Estimated right ventricular systolic pressure is 16 mmHg Wall motion Left Ventricle The left ventricle is normal size. The left ventricular systolic function is normal. The left ventricular ejection fraction is within the normal range. There is normal left ventricular wall thickness. There is normal LV segmental wall motion. There is no ventricular septal defect visualized. LVEF is 55-60%. Right Ventricle The right ventricle is normal size. The right ventricular systolic function is normal. The RVSP is 16.3_ mmHg. Atria The left atrium size is normal. The right atrium size is normal. The interatrial septum is intact with no evidence for an atrial septal defect. Aortic Valve Peak gradient is 14, mean 8 mmHg No aortic regurgitation is present. Bioprosthetic aortic valve is present. Mitral Valve Moderate mitral annular calcification. No evidence of mitral valve stenosis. Trace to mild mitral regurgitation. Tricuspid Valve The tricuspid valve is normal in structure. There is no tricuspid valve stenosis. Trace tricuspid regurgitation. Pulmonic Valve The pulmonary valve is normal in structure. There is no pulmonic valvular stenosis. There is no pulmonic valvular regurgitation. Great Vessels The aortic root is normal in size. The ascending aorta is normal in size. IVC is normal in size and collapses >50% with inspiration. Pericardium There is no pericardial effusion. 2D Dimensions IVSD d PLAX 0.97 cm F: 0.6-1.0LV Vol A2C d MOD 43.8 mL LVPW d PLAX 0.98 cm F: 0.6 - 1.0LV Vol A4C d MOD 70.4 mL LVID d PLAX 4.21 cm F: 3.8 - 5.2LA Area A4C s MOD 19.17 cm2 LVDs 2.95 cm F: 2.2 - 3.5LA Area A2C s MOD 21.52 cm2 Ao Root d 2.08 cm F: 2.7 - 3.3LV EF A4C MOD 55.8 % RA Area A4C9.80 cm2LV EF A2C MOD 55.1 % Ao Asc Diam d 3.17 cm F: 2.3 - 3.1LV EF Biplane MOD 54.2 % LV EF Teichholz 55.8 %SV30.50 mL LVEF (Parsons's)54.23 % F: 54 - 74 LV Mlmgau61.24 mL F: 46 - 106 LV Volume Index31.59 mL/m2 F: 29 - 61 LV Vol Biplane MOD 56.2 mL FS28.80 % M-Mode TAPSE 1.64 cm (M/F) >1.7 LV Diastology MV E' medial0.065 (>0.07 m/s)E/A Ratio 0.9 LV E/e MED13.30 (<14)MV E Vmax 0.87 (0.4-1.3 m/s) MV E' lateral0.058 (>0.1 m/s)MV A Vmax 0.95 (0.4-1.3 m/s) LV E/e LAT15.00 (<14)MV E/A Ratio 0.90 MV E/E' medial 13.33 MV E/E' suhnonj60.02 Aortic Valve LVOT Area2.82 cm2AoV Area Vmax1.76 cm2 LVOT Vmax 1.16 m/sAVA Mean Geovanny.1.56 cm2 LVOT Mean Geovanny.0.73 m/s LVOT Peak Grad 5.4 mmHg LVOT Mean Grad 2.6 mmHg LVOT VTI0.267 m LVOT Diam s 1.85 cm AoV Vmax1.86 m/s Velocity Ratio 0.62 AoV Mean Geovanny.1.32 m/s AoV Peak Grad13.8 mmHg LVOT SV 75.19 mL AoV Mean Grad7.9 mmHg AoV VTI0.417 m AoV Area VTI1.80 cm2 Mitral Valve MV DT 423 (160-240 msec) MV HPV398 msec MV Area PHT 1.79 cm2 MV VTI 0.423 m MV Area VTI 1.78 (4.0-6.0 cm2) Pulmonary Valve PV Vmax 0.95 (0.5-1.5 m/s)RVOT Peak Gr.2.02 mmHg PV Peak Grad 3.6 mmHgRVOT Mean Gr.1.00 mmHg PV Mean Grad 2.0 mmHgRVOT VTI0.154 m PV VTI 0.198 mRVOT Vmax 0.71 m/s Tricuspid Valve TR Peak Grad 13.3 mmHgTR Vmax 1.83 m/s RA Pressure 3.00 mmHg RVSP (TR) 16.3 mmHg Ordered By: Dylan Arango NP CC: Dictated By: Selene Bates M.D. 04/22/22 1228 <Electronically signed by Selene Bates M.D. in OV> 04/22/22 1239 Transcribed By: Selene Bates MD Carotid Artery US: Carotid Artery Ultrasound 11/14/24 11:30 Pulmonary Function Test Interpretation: No Data to Display Other Study Summary:: Patient Name: Vikas Peralta #: [id number]: DI Ordering Provider: Mallika Srinivasan DOAccount #: [id number]: REG CLI Primary Care Provider: Keenan Mclaughlin of Exam: 10/07/22Sex: F Admission Date: 10/07/22 : 1945 Age: 77 Exam(s) US ABDOMEN EXAM: US ABDOMEN CLINICAL HISTORY: epigastric pain/bloating/naUSEA,R14.0,R10.13,R11.0,K21.9 TECHNIQUE: Ultrasound of complete upper abdomen performed using standard protocol. COMPARISON: US US ECHOCARDIOGRAM from 04/22/2022 FINDINGS: There is no ascites evident. LIVER: Liver is hyperechoic indicating steatosis. Liver size appears slightly prominent. There are no discrete focal hepatic lesions evident on these images. GALLBLADDER/BILIARY: There are no gallstones. No gallbladder wall edema nor pericholecystic fluid. The common hepatic duct isnot dilated, measuring 3-4mm at the level of adilene hepatis. PANCREAS: There is no evidence of pancreatic mass nor dilatation of the pancreatic duct. SPLEEN: The spleen is not enlarged and there are no intrasplenic lesions evident. Small accessory splenule noted KIDNEYS:Kidneys exhibit normal size with no evidence of solid mass, calculus, nor hydronephrosis. Small 1 cm 9 cyst noted in the superior pole the left kidney. ABDOMINAL AORTA: There is no evidence of abdominal aortic aneurysm. IVC: Normal diameter where visualized. IMPRESSION: 1. No evidence of cholelithiasis nor dilatation of the biliary tree. 2. Hepatic steatosis. Correlation a patent blood work recommended. 3. Small benign 1 cm cyst in the left kidney. Does not require further workup.
== END 2024-11-14 17:18 | disposition home or self-care (01) ==
PROVIDERS: Physician Assistant; Emergency Provider Nurse Practitioner Family; PCP Family Medicine
DX: K85.90 Acute pancreatitis without necrosis or infection, unspecified (principal); R07.9 Chest pain, unspecified; I10 Essential (primary) hypertension; I65.23 Occlusion and stenosis of bilateral carotid arteries; K76.0 Fatty (change of) liver, not elsewhere classified; F17.210 Nicotine dependence, cigarettes, uncomplicated; Z95.2 Presence of prosthetic heart valve
CPT/HCPCS: 36415; 80053; 83690; 93005; 96365; 96366; 99285; 71046; 76705; 83735; 83880; 84484; 85025; 93010; 93880; J3475

== ENCOUNTER → 2024-11-17 13:22 | Outpatient (BNVA) | payer MEDICARE, SELFPAY | PROVIDERS: PCP Family Medicine; Referring Provider Family Medicine; Visit Provider Internal Medicine Cardiovascular Disease | DX: Z95.2 Presence of prosthetic heart valve (principal) | CPT/HCPCS: 99213 ==

== ENCOUNTER 2024-12-02 00:13 | Outpatient (CLI) | payer MEDICARE, SELFPAY ==
--- NOTE | 2024-12-02 | DI.MRI_ITS ---
Exam(s) MR ABDOMEN WO EXAM: MR ABDOMEN WO CLINICAL HISTORY: Abnl levels of other serum enzymes, R74.8; acute pancreatitis wo necrosis TECHNIQUE: Multiplanar multisequence MRI of the Abdomen was performed. MRCP sequences also performed. COMPARISON: CT CT CHEST/ABD/PEL W from 10/20/2023 US US ABDOMEN LIMITED from 11/14/2024 FINDINGS: Liver: Enlarged. Moderate hepatic steatosis. No focal lesions. Gallbladder: Unremarkable. Bile Ducts: Unremarkable. Pancreas: Unremarkable. No evidence of inflammation. Adrenals: Unremarkable. Kidneys: Unremarkable stable small bilateral renal cysts. No follow-up recommended. Spleen: Unremarkable. Aorta: Unremarkable. Soft Tissues: Unremarkable. Bone: Unremarkable. Lymph Nodes: Unremarkable. Mesentery: No ascites. No focal fluid collection. Bowel: No abnormal dilatation or wall thickening. IMPRESSION: Normal appearance of the pancreas. Enlarged liver with moderate hepatic steatosis. No focal lesions. Normal MRCP. DATA REPOSITORY:
== END 2024-12-02 00:33 ==
LOC: DI 00:13
PROVIDERS: PCP Family Medicine; Visit Provider Family Medicine
DX: K76.0 Fatty (change of) liver, not elsewhere classified (principal)
CPT/HCPCS: 74181

== ENCOUNTER 2024-12-08 01:40 | Outpatient (CLI) | payer MEDICARE, SELFPAY ==
--- NOTE | 2024-12-08 14:30 | DI.US_ITS ---
APPROVED REPORT EXAM: Comprehensive 2D, Doppler, and color-flow Echocardiogram Patient Location: Out-Patient It Infrastructure Engineer: Matty Alexis RDCS (AE) Indications: Prior AVR Other Information Study Quality: Adequate. Technically limited study due to body habitus. Conclusion Normal left ventricular wall thickness and chamber size. Ejection fraction is 60%. Wall motion is n ormal Normal right ventricular size and function Mildly dilated left atrium. Normal right atrial size There is a bioprosthetic aortic valve. Mean gradient is 6 mmHg. There is no aortic regurgitation Mitral annular calcification. Trace mitral regurgitation Estimated right ventricular systolic pressure is 26 mmHg Wall motion Left Ventricle The left ventricle is normal size. The left ventricular systolic function is normal. The left ventric ular ejection fraction is within the normal range. There is normal left ventricular wall thickness. T here is normal LV segmental wall motion. There is no ventricular septal defect visualized. LVEF is 60 %. Right Ventricle The right ventricle is normal size. The right ventricular systolic function is normal. Atria Left atrium is mildly dilated. The right atrium size is normal. The interatrial septum is intact with no evidence for an atrial septal defect. Aortic Valve Bioprosthetic aortic valve is present. There is no aortic valvular stenosis. Mean gradient is 6 mmHg No aortic regurgitation is present. Mitral Valve Moderate mitral annular calcification. No evidence of mitral valve stenosis. Trace mitral regurgitati on. Tricuspid Valve The tricuspid valve is normal in structure. There is no tricuspid valve stenosis. Trace tricuspid reg urgitation. The RVSP is 26 mmHg. Pulmonic Valve The pulmonary valve is normal in structure. There is no pulmonic valvular stenosis. There is no pulmo taina valvular regurgitation. Great Vessels The aortic root is normal in size. The ascending aorta is normal in size. IVC is normal in size and c ollapses >50% with inspiration. Pericardium There is no pericardial effusion. 2D Dimensions IVSD d PLAX 0.95 cm F: 0.6-1.0 Ao Root d 2.51 cm F: 2.7 - 3.3 LVPW d PLAX 0.89 cm F: 0.6 - 1.0 Ao Asc Diam d 2.85 cm F: 2.3 - 3.1 LVID d PLAX 4.66 cm F: 3.8 - 5.2 LVDs 3.16 cm F: 2.2 - 3.5 LV EF Teichholz 60.5 % FS 32.24 % LV EDV (Teich) 100.3 mL LV ESV (Teich) 39.6 mL Stroke Vol Index (Teich) 27.31 M-Mode TAPSE 2.19 cm (M/F) >1.7 Auto EF LV EDV A4C 40.2 mL LV EDV A2C 54.1 mL LV EDV BP 48.6 mL LV ESV A4C 17.2 mL LV ESV A2C 21.4 mL LV ESV BP 20.6 mL LVEF(%) A4C 57.3 % LVEF(%) A2C 60.4 % LVEF(%) BP 57.7 % LV SV A4C 23.0 ml LV SV A2C 32.7 ml LV SV BP 28.1 ml LV CO A4C 1.3 L/min LV CO A2C 1.9 L/min LV CO BP 1.6 L/min HR A4C 58.54 BPM HR A2C 59.21 BPM LV EDV Index (BP) LA Volume LA Length A4C 4.9 cm LA Length A2C 5.6 cm LA Area A4C s 15.51 cm2 LA Area A2C s 14.69 cm2 LA Vol A4C A-L 41.41 mL LA Vol A2C A-L 32.80 mL LA Vol Biplane A-L 39.2 mL LA Vol/BSA A4C A-L LA Vol/BSA A2C A-L LA Vol/BSA BP A-L 17.7 mL/m2 LA Vol A4C MOD 39.2 mL LA Vol A2C MOD 31.0 mL LA Vol BP MOD 37.1 mL RA Volume RA Area A4C 7.6 cm2 RA ESV A4C (A-L) 11.0mL RA Vol/BSA A4C A-L RA Length A4C 4.4 cm RA ESV A4C (MOD) 10.5mL LV Diastology MV E' medial 0.040 (>0.07 m/s) MV E Vmax 0.99 (0.4-1.3 m/s) MV E/E' MED 24.76 (<14) MV A Vmax 1.10 (0.4-1.3 m/s) MV E' lateral 0.073 (>0.1 m/s) E/A Ratio 0.9 MV E/E' LAT 13.70 (<14) MV E' Average 0.056 m/s MV E/E'(average) 17.64 Aortic Valve AoV Vmax 1.78 m/s LVOT Vmax 1.06 m/s AoV Peak Grad 12.6 mmHg LVOT Peak Grad 4.5 mmHg AoV Area (Vmax) 1.33 cm2 LVOT VTI 0.268 m AoV VTI 0.392 m LVOT Mean Grad 2.5 mmHg AoV Mean Geovanny. 1.12 m/s LVOT SV 59.88 mL AoV Mean Grad 6.1 mmHg LVOT Diam s 1.65 cm AoV Area (VTI) 1.53 cm2 AV Regurg Peak Gr. 12.63 mmHg Velocity Ratio 0.60 Mitral Valve MV DT 508 (160-240 msec) MV Vmax TIPS 1.15 m/s MV Mean Grad 2.2 (<2mmHg) MV VTI 0.475 m Pulmonary Valve PV Vmax 1.18 (0.5-1.5 m/s) RVOT Vmax 0.93 m/s PV Peak Grad 5.6 mmHg RVOT Peak Gr. 3.5 mmHg PV Mean Geovanny 0.86 m/s RVOT VTI 0.201 m PV Mean Grad 3.3 mmHg RVOT Mean Gr. 2.0 mmHg Tricuspid Valve RA Pressure 3.00 mmHg TR Vmax 2.40 m/s TV S' 0.16 m/s TR Peak Grad 23.1 mmHg RVSP (TR) 26.1 mmHg
== END 2024-12-08 02:00 ==
LOC: DI 01:40
PROVIDERS: PCP Family Medicine; Visit Provider Internal Medicine Cardiovascular Disease
DX: Z95.2 Presence of prosthetic heart valve (principal); I08.1 Rheumatic disorders of both mitral and tricuspid valves
CPT/HCPCS: 93306

== ENCOUNTER 2025-03-08 16:35 | Emergency (ER) | payer MEDICARE, SELFPAY ==
[2025-03-08] VITALS (46 sets, daily range): BP systolic 95–178; BP diastolic 37–113; PULSE 54–73; RESP 13–25; TEMP 37; O2SAT 91–98
--- NOTE | 2025-03-08 16:30 | RT.EKG_ITS ---
APPROVED REPORT Exam: Resting ECG Reason for Exam: FAINTED Patient Location: E HR:70 bpm ECG Measurements Heart Rate 70 AXIS NM 214 P 40 QRSd 90 QRS 34 QT 404 T 60 QTc 437 Conclusion Sinus rhythm 70 normal axis no stemi
--- NOTE | 2025-03-08 17:15 | DI.CT_ITS ---
Exam(s) CT BRAIN NECK CTA EXAM: CT BRAIN NECK CTA CLINICAL HISTORY: syncope, DOVE. TECHNIQUE: Imaging Protocol: Axial CT angiography was performed with multi- slice acquisition and multi-planar and MIP reconstructions. CONTRAST MATERIAL: Intravenous: Omnipaque 350 Contrast volume:100 ml COMPARISON: CT CT BRAIN NECK CTA from 05/27/2024 CR,XR XR PORTABLE CHEST AP from 03/08/2025 FINDINGS: CT Head W/O and W contrast: Ventricles and Extra axial spaces: Normal in size and morphology for the patient's age. Hemorrhage: None. Cerebral parenchyma: No evidence of acute infarct or mass. Midline shift: None. Brainstem/Cerebellum: No acute findings.. Calvarium: Normal. Visualized Paranasal sinuses/Mastoids: Clear. Soft Tissues: Unremarkable. Enhancement: Normal. Venous sinuses are patent. CTA Brain W: Internal Carotid Arteries: Right: No aneurysm, occlusion or significant stenosis. Left: No aneurysm, occlusion or significant stenosis. Middle Cerebral Arteries: Right: No aneurysm, occlusion or significant stenosis. Left: No aneurysm, occlusion or significant stenosis. Anterior Cerebral Arteries: Right: No aneurysm, occlusion or significant stenosis. Left: No aneurysm, occlusion or significant stenosis. Posterior cerebral Arteries: Right: No aneurysm, occlusion or significant stenosis. Left: No aneurysm, occlusion or significant stenosis. Vertebral Arteries: Right: No aneurysm, occlusion or significant stenosis. Left: No aneurysm, occlusion or significant stenosis. Basilar Artery: No aneurysm, occlusion or significant stenosis. CTA Neck W: Common Carotid: Calcified plaque at both bulbs. Right: No dissection, occlusion or significant stenosis. Left: No dissection, occlusion or significant stenosis. External Carotid: Right: No dissection, occlusion or significant stenosis. Left: No dissection, occlusion or significant stenosis. Internal Carotid: Right: Calcified proximally causing mild stenosis.. No dissection. Left: Calcified plaque proximally causing severe stenosis. No dissection. Vertebral Artery: Right: No dissection, occlusion or significant stenosis. Left: Calcification at the origin. Scattered multifocal calcifications. No dissection, occlusion or significant stenosis. Lung Apices: Upper lobe ground-glass opacities, greater at the right upper lobe may represent pneumonia. Severe atherosclerotic changes are noted at the aortic arch. No evidence of aneurysm. Bones: No acute abnormality. Sternal wires. Degenerative changes in the cervical spine. Soft Tissues: Normal. IMPRESSION: 1. CTA brain: Normal CTA examination of the [place]. 2. Head CT: No acute abnormality. 3. CTA neck: Severe stenosis of the proximal left internal carotid artery. Mild stenosis of the proximal right internal carotid artery. Bilateral upper lobe ground-glass opacities consistent with pneumonitis. The preliminary [facility] report was reviewed. RADIATION DOSE DELIVERED: 2,310.95mGy.cm Total DLP DATA REPOSITORY: All CT scans at this facility are submitted to the National Radiology Data Registry (NRDR) Dose Index Registry (DIR) with the [employer] (ACR). RADIATION OPTIMIZATION: All CT scans at this facility use at least one of these dose optimization techniques: automated exposure control; mA and/or kV adjustment per patient size (includes targeted exams where dose is matched to clinical indication); or iterative reconstruction.
[2025-03-08 18:32] LABS: Abs Immature Grans 0.04 10^3/uL (0.0-0.06); Absolute Basophil Count 0.05 10^3/uL (0.0-0.2); Absolute Eosinophil Count 0.19 10^3/uL (0.0-0.7); Absolute Monocyte Count 0.89 10^3/uL (0.1-0.8); Basophils % 0.4 %; Eosinophils % 1.6 %; HCT 39.9 % (36.0-46.0); HGB 13.2 g/dL (11.2-15.7); Immature Grans % 0.3 %; Lymphocytes % 20.5 %; MCH 30.2 pg (27.0-33.0); MCHC 33.1 % (32.0-36.0); MCV 91 fL (80-95); MPV 10.3 fL (8.0-11.0); Monocytes % 7.6 %; Neutrophils % 69.6 %; Platelet Count 174 10^3/uL (130-400); RBC 4.37 10^6/uL (3.93-5.22); RDW 12.7 % (11.7-14.6); RDW-SD 42.2 fL; WBC 11.71 10^3/uL (4.4-10.8)
[2025-03-08 18:33] LABS: Absolute Neutrophil Count 8.15 10^3/uL (1.2-6.7)
[2025-03-08] MEDS: Omnipaque 350 MG/ML 100 ML BTL 70 ML IJ (18:33)
[2025-03-08] MEDS: Normal Saline - Diluent 50 ML VIAL IJ (18:40)
[2025-03-08 18:56] LABS: ALT 49 U/L (14-59); AST 34 U/L (15-37); Albumin 3.7 g/dL (3.4-5.0); Alkaline Phosphatase 57 U/L (46-116); Anion Gap 8.2 mmol/L (3-11); BUN 32 mg/dL (7-18); Bilirubin, Total 0.4 mg/dL (0.2-1.0); CO2 29.8 mmol/L (21.0-32.0); CREATININE 1.1 mg/dL (0.55-1.02); Calcium 9.8 mg/dL (8.5-10.1); Chloride 102 mmol/L (98-107); Estimated GFR 50.48 (mL/min/1.73m2); Glucose 121 mg/dL (74-106); Potassium 4.2 mmol/L (3.5-5.1); Sodium 140 mmol/L (136-145); TSH 1.63 uIU/mL (0.36-3.74); Total Protein 7.3 g/dL (6.4-8.2); Troponin I 8 ng/L (<or=51)
[2025-03-08 19:25] LABS: Bilirubin Negative (Negative); Blood Negative (Negative); Clarity Clear (Clear); Glucose Negative (Negative); Ketones Negative (Negative); Leukocyte Esterase Trace (Negative); Nitrite Negative (Negative); Specific Gravity 1.015 (1.005-1.025); Urobilinogen 0.2 mg/dL (Up to 0.2); pH 5.5 (5-8)
[2025-03-08 19:32] LABS: Bacteria Negative HPF (Negative); C & S Indicated? No; Crystals Negative HPF (Negative); Epithelial Cells Rare HPF (Negative); Mucus Negative (Negative); RBC Negative HPF (0-2); WBC 0-2 HPF (0-5)
[2025-03-08 20:05] LABS: Troponin I 8 ng/L (<or=51)
--- NOTE | 2025-03-08 20:26 | DI.[facility]_ITS ---
PROCEDURE INFORMATION: Exam: CTA Head Without And With Contrast, Arteriography Exam date and time: 03/08/2025 6:39 PM Age: 80 years old Clinical indication: Syncope, DOVE TECHNIQUE: Imaging protocol: Computed tomographic angiography of the head without and with contrast. Exam focused on the arteries. 3D rendering (Not supervised by radiologist): MIP and/or 3D reconstructed images were created by the technologist. Contrast material: OMNIPAQUE 350; Contrast volume: 70 ml; Contrast route: INTRAVENOUS (IV); COMPARISON: CT BRAIN NECK CTA 05/27/2024 5:20 PM FINDINGS: ANTERIOR CIRCULATION: Right internal carotid artery: Intracranial segment is patent with no significant stenosis or occlusion. No aneurysm. Right middle cerebral artery: No occlusion or significant stenosis. No aneurysm. Right anterior cerebral artery: No occlusion or significant stenosis. No aneurysm. Left internal carotid artery: Intracranial segment is patent with no significant stenosis. No aneurysm. Left middle cerebral artery: No occlusion or significant stenosis. No aneurysm. Left anterior cerebral artery: No occlusion or significant stenosis. No aneurysm. POSTERIOR CIRCULATION: Right vertebral artery: No occlusion or significant stenosis. No aneurysm. Left vertebral artery: No occlusion or significant stenosis. No aneurysm. Basilar artery: No occlusion or significant stenosis. No aneurysm. Right posterior cerebral artery: No occlusion or significant stenosis. No aneurysm. Left posterior cerebral artery: No occlusion or significant stenosis. No aneurysm. HEAD: Brain: There is no acute intracranial hemorrhage, mass effect or midline shift. There is no large acute territorial cerebral infarct. Cerebral ventricles: Normal. No ventriculomegaly. Bones: Unremarkable. No acute fracture. Paranasal sinuses: Visualized sinuses are normal. No fluid levels. Mastoid air cells: Visualized mastoids are normal. No mastoid effusion. Soft tissues: Unremarkable. IMPRESSION: No acute intracranial hemorrhage, mass effect or midline shift. PROCEDURE INFORMATION: Exam: CTA Neck Without And With Contrast Exam date and time: 03/08/2025 6:39 PM Age: 80 years old Clinical indication: Syncope, DOVE TECHNIQUE: Imaging protocol: Computed tomographic angiography of the neck without and with contrast. Exam focused on the cervical segments of the vasculature. 3D rendering (Not supervised by radiologist): MIP and/or 3D reconstructed images were created by the technologist. Contrast material: OMNIPAQUE 350; Contrast volume: 70 ml; Contrast route: INTRAVENOUS (IV); COMPARISON: CT BRAIN NECK CTA 05/27/2024 5:20 PM FINDINGS: Right common carotid artery: No stenosis. No dissection or occlusion. Right internal carotid artery: There is approximately 40% stenosis at the proximal right internal carotid artery, secondary to atherosclerotic plaque. No dissection or occlusion. Right external carotid artery: No occlusion or stenosis of the origin. Left common carotid artery: No stenosis. No dissection or occlusion. Left internal carotid artery: There is approximately 90% stenosis at the proximal left internal carotid artery, secondary to atherosclerotic disease. No dissection or occlusion. Left external carotid artery: No occlusion or stenosis of the origin. Right vertebral artery: No stenosis. No dissection or occlusion. Left vertebral artery: There is narrowing at the origin of the left vertebral artery. No dissection or occlusion. Soft tissues: No significant soft tissue swelling. Bones/joints: No acute fracture.There is multilevel degenerative disc disease and bilateral uncovertebral and facet arthropathy causing bilateral neural foraminal narrowing most prominent at the right C3-C4 level. No significant spinal canal stenosis. Lungs: Incidentally noted are patchy regions of ground-glass opacities in the bilateral upper lobes, concerning for pneumonia. IMPRESSION: 1. Severe stenosis at the origin of the left ICA and mild stenosis at the origin of the right ICA secondary to prominent atherosclerotic plaque. 2. No arterial occlusion or dissection. 3. Findings concerning for pneumonia partially visualized. 4. Multilevel cervical spine degenerative changes as described. REFERENCES: NASCET CRITERIA. The degree of stenosis in the cervical segment of the internal carotid artery is based on NASCET criteria. Normal is no stenosis. Mild is less than 50% stenosis. Moderate is 50-69% stenosis. Severe is 70% to 99% stenosis. Total occlusion is no detectable patent lumen. Dictated and Authenticated by: Deloris Bonds MD. Orderin Bakari Nolan MD
--- NOTE | 2025-03-08 21:08 | DI.RAD_ITS ---
Exam(s) XR PORTABLE CHEST AP EXAM: XR PORTABLE CHEST AP CLINICAL HISTORY: syncope TECHNIQUE: 2D digital imaging was performed of the chest. One image was obtained. An AP view was obtained. COMPARISON: CR XR CHEST 2V PA LATERAL from 11/14/2024 FINDINGS: MEDIASTINUM: Normal. HEART: Normal. There is an aortic prosthetic valve. PULMONARY VASCULATURE: Normal. LUNGS: Clear. PLEURAL SPACE: No pleural effusion or pneumothorax. BONE:Within normal limits for the patient's age. Sternal wires are in place. OTHER FINDINGS:Normal. IMPRESSION: 1. No acute pulmonary findings. 2. The preliminary [facility] report was reviewed. DATA REPOSITORY: RADIATION DOSE DELIVERED:
[2025-03-08] MEDS: Acetaminophen 500 MG TAB (21:27)
--- NOTE | 2025-03-08 22:33 | DI.[facility]_ITS ---
PROCEDURE INFORMATION: Exam: XR Chest Exam date and time: 03/08/2025 9:08 PM Age: 80 years old Clinical indication: Other: Synocope; Prior surgery; Surgery date: 6+ months; Surgery type: Heart surgery TECHNIQUE: Imaging protocol: Radiologic exam of the chest. Views: 1 view. COMPARISON: CR XR CHEST 2V PA LATERAL 11/14/2024 10:42 AM FINDINGS: Lungs: Unremarkable. No consolidation. Pleural spaces: Unremarkable. No pleural effusion. No pneumothorax. Heart/Mediastinum: Unremarkable. No cardiomegaly. Bones/joints: Moderate degenerative changes of the spine and shoulders noted. Prior sternotomy changes. No acute osseous abnormality. IMPRESSION: No acute abnormality Dictated and Authenticated by: Tin Oliveira MD. Orderin Bakari Nolan MD
--- NOTE | 2025-03-08 22:54 | ED.GENADUL_ITS ---
Discharge Plan Disposition Patient Disposition: Home Discharge Details Clinical Impression: Dizziness, Syncope Primary Care Provider: Babar Mclaughlin ED Provider: Vazquez Villegas Home Meds and New Rx's Prescriptions: No Action aspirin [Adult Aspirin Regimen] 81 mg tablet,delayed release (DR/EC) 81 mg PO DAILY multivitamin Tablet 1 tab PO DAILY acetaminophen 325 mg capsule 325 mg PO ONCE PRN epinephrine 0.3 mg/0.3 mL Auto-Injector 0.3 mg IM PRN PRN metoprolol tartrate 25 mg Tablet 25 mg PO DAILY escitalopram oxalate 20 mg tablet 20 mg PO DAILY Patient Comments: TAKE ONE TABLET BY MOUTH EVERY DAY (DME) OneTouch Verio test strips Strip MISCELLANEOUS Patient Comments: TEST BLOOD SUGAR 2 TIMES A DAY losartan-hydrochlorothiazide 100-25 mg tablet 1 tab PO DAILY Patient Comments: TAKE ONE TABLET BY MOUTH EVERY DAY prednisone 5 mg tablet 5 mg PO DAILY Patient Comments: TAKE THREE TABLETS BY MOUTH EVERY DAY WITH FOOD OR MILK apple cider vinegar 1 tab PO DAILY omega 2-hey-iqv-fish oil [Fish Oil] 1,200 (144-216) mg capsule 1 cap PO DAILY (DME) lancets [OneTouch Delica Plus Lancet] 33 gauge misc MISCELLANEOUS Patient Comments: TEST BLOOD SUGAR TWO TIMES A DAY Discharge Instructions Additional Instructions: lab work and CT imaging today are all appearing Please follow-up with your PCP for these ongoing issues as needed. HPI General Date/Time Provider Initiated Documentation: 03/08/25 17:15 . Limitations to Documentation: no limitations . Information obtained by: patient and family . HPI Narrative: 80 y F with PMH of depression, chronic dizziness, carotid stenosis, HTN present for evaluation of dizziness and syncope. she reports that she has been feeling dizzy and lightheaded for the last 3-4 days. she has been able to do her usual daily tasks. today she reports developing a headache around noon. not acute onset, not worst of life, improved with tylenol. she took a shower and shortly after coming to the out the shower she reports feeling very woozy and knew that she was going to pass out. states that she woke up on the floor with her dog standing over her. denies any injuries during the fall to the ground. was able to get herself and has been walking since. denies chest pain. reports that she has tingling over her face, especially around her mouth. she also thinking that she is not talking right. she says this just isn't the way she talks. her notes that she seems to have a higher pitch and her voice sounds hoards. Related Data Home Medications ?Medication ?Instructions ?Recorded ?Confirmed epinephrine 0.3 mg/0.3 mL 0.3 mg IM PRN PRN 12/31/20 0 11/17/24 injection, auto-injector metoprolol tartrate 25 mg tablet 25 mg PO DAILY 11/17/24 aspirin 81 mg tablet,delayed 81 mg PO DAILY 07/28/22 0 11/17/24 release (Adult Aspirin Regimen) blood sugar diagnostic ([facility] 10/20/23 11/17/24 Verio test strips) escitalopram oxalate 20 mg tablet 20 mg PO DAILY 10/2011/17/24 multivitamin 1 tab PO DAILY 12/22/2303/08 acetaminophen 325 mg capsule 325 mg PO ONCE PRN 11/17/24 losartan 100 1 tab PO DAILY 05/27/2403/08 mg-hydrochlorothiazide 25 mg tablet apple cider vinegar 1 tab PO DAILY 11/14/2403/08 lancets 33 gauge ([facility] 11/14/24 11/17/24 Plus Lancet) omega 7-hbd-fvc-fish oil 1,200 mg 1 cap PO DAILY 11/1411/17/24 (144 mg-216 mg) capsule (Fish Oil) prednisone 5 mg tablet 5 mg PO DAILY 11/14/2411/17 Allergies Allergy/AdvReac Type Severity Reaction Status Date / Time hornet venom Allergy Severe Anaphylaxis Verified 11/17/24 13:54 latex Allergy RASH Verified 11/17/24 13:54 adhesive tape AdvReac Skin Rash Verified 11/17/24 13:54 General Stated Complaint: [id number] JOSE JUAN: 3 Exam Narrative Exam Narrative: Review of Systems: All systems reviewed & are unremarkable except as noted in HPI and below Well-developed, no acute distress NCAT PERRL, normal conjunctiva no nystagmus RRR, no murmur Unlabored respiratory effort, CTAB Nondistended abdomen , soft non tender Extremities w/o deformity No rashes or lesions. no focal neurologic deficits, CN intact, sensation and motor normal throughout, normal gait speech clear and fluent Appropriate mood and affect Course Vital Signs Vital signs: Vital Signs Temperature 37.0 C 03/08/25 16:46 Pulse 68 03/08/25 16:46 Respiratory Rate 14 03/08/25 16:46 Blood Pressure 106/69 03/08/25 16:46 Pulse Oximetry 93 03/08/25 16:46 Temperature 37.0 C 03/08/25 16:46 Temperature Source Oral 03/08/25 16:46 Pulse 57 L 03/08/25 21:28 Pulse 66 03/08/25 21:16 Respiratory Rate 16 03/08/25 21:28 Respiratory Effort Normal 03/08/25 17:09 Respiratory Depth Normal 03/08/25 17:09 Blood Pressure 120/51 L 03/08/25 21:28 Blood Pressure Mean 76 03/08/25 21:16 Blood Pressure Position Sitting 03/08/25 16:46 Pulse Oximetry 95 03/08/25 21:10 Oxygen Delivery Method Room Air 03/08/25 16:46 Oxygen Flow Rate 0 03/08/25 16:46 Pain Level 3 03/08/25 16:46 Lab/Test Results Lab/Test Results: Laboratory Tests Range/Units 03/08/25 03/08/25 03/08/25 18:24 19:03 19:21 WBC (4.4-10.8) 10^3/uL 11.71 H RBC (3.93-5.22) 10^6/uL 4.37 Hgb (11.2-15.7) g/dL 13.2 Hct (36.0-46.0) % 39.9 MCV (80-95) fL 91 MCH (27.0-33.0) pg 30.2 MCHC (32.0-36.0) % 33.1 RDW (11.7-14.6) % 12.7 Plt Count (130-400) 10^3/uL 174 MPV (8.0-11.0) fL 10.3 Immature Gran % % 0.3 Neutrophils % % 69.6 Lymphocytes % % 20.5 Monocytes % % 7.6 Eosinophils % % 1.6 Basophils % % 0.4 Nucleated RBC % (0.0-0.3) % 0.0 Absolute Neutrophils (1.2-6.7) 10^3/uL 8.15 H Absolute Lymphocytes (1.2-3.4) 10^3/uL 2.40 Absolute Monocytes (0.1-0.8) 10^3/uL 0.89 H Absolute Eosinophils (0.0-0.7) 10^3/uL 0.19 Absolute Basophils (0.0-0.2) 10^3/uL 0.05 Sodium (136-145) mmol/L 140 Potassium (3.5-5.1) mmol/L 4.2 Chloride (98-107) mmol/L 102 Carbon Dioxide (21.0-32.0) mmol/L 29.8 Anion Gap (3-11) mmol/L 8.2 BUN (7-18) mg/dL 32 H Creatinine (0.55-1.02) mg/dL 1.1 H Est GFR (CKD-EPI 2020) (mL/min/1.73m2) 50.48 Glucose (74-106) mg/dL 121 H Calcium (8.5-10.1) mg/dL 9.8 Magnesium (1.8-2.4) mg/dL 2.0 Total Bilirubin (0.2-1.0) mg/dL 0.4 AST (15-37) U/L 34 ALT (14-59) U/L 49 Alkaline Phosphatase (46-116) U/L 57 Troponin I (<or=51) ng/L 8 8 Total Protein (6.4-8.2) g/dL 7.3 Albumin (3.4-5.0) g/dL 3.7 TSH (0.36-3.74) uIU/mL 1.63 Urine Color (Yellow) Yellow Urine Clarity (Clear) Clear Urine pH (5-8) 5.5 Ur Specific [place] (1.005-1.025) 1.015 Urine Protein (Neg-Trace) mg/dL Negative Urine Ketones (Negative) mg/dL Negative Urine Blood (Negative) Negative Urine Nitrite (Negative) Negative Urine Bilirubin (Negative) Negative Urine Urobilinogen (Up to 0.2) mg/dL 0.2 Ur Leukocyte Esterase (Negative) Trace H Urine RBC (0-2) HPF Negative Urine WBC (0-5) HPF 0-2 Ur Epithelial Cells (Negative) HPF Rare Urine Crystals (Negative) HPF Negative Urine Bacteria (Negative) HPF Negative Urine Mucus (Negative) Negative Ur Culture Indicated? No Urine Glucose (Negative) mg/dL Negative Range/Units 03/08/25 20:15 WBC (4.4-10.8) 10^3/uL RBC (3.93-5.22) 10^6/uL Hgb (11.2-15.7) g/dL Hct (36.0-46.0) % MCV (80-95) fL MCH (27.0-33.0) pg MCHC (32.0-36.0) % RDW (11.7-14.6) % Plt Count (130-400) 10^3/uL MPV (8.0-11.0) fL Immature Gran % % Neutrophils % % Lymphocytes % % Monocytes % % Eosinophils % % Basophils % % Nucleated RBC % (0.0-0.3) % Absolute Neutrophils (1.2-6.7) 10^3/uL Absolute Lymphocytes (1.2-3.4) 10^3/uL Absolute Monocytes (0.1-0.8) 10^3/uL Absolute Eosinophils (0.0-0.7) 10^3/uL Absolute Basophils (0.0-0.2) 10^3/uL Sodium (136-145) mmol/L Potassium (3.5-5.1) mmol/L Chloride (98-107) mmol/L Carbon Dioxide (21.0-32.0) mmol/L Anion Gap (3-11) mmol/L BUN (7-18) mg/dL Creatinine (0.55-1.02) mg/dL Est GFR (CKD-EPI 2020) (mL/min/1.73m2) Glucose (74-106) mg/dL Calcium (8.5-10.1) mg/dL Magnesium (1.8-2.4) mg/dL Total Bilirubin (0.2-1.0) mg/dL AST (15-37) U/L ALT (14-59) U/L Alkaline Phosphatase (46-116) U/L Troponin I (<or=51) ng/L Cancelled Total Protein (6.4-8.2) g/dL Albumin (3.4-5.0) g/dL TSH (0.36-3.74) uIU/mL Urine Color (Yellow) Urine Clarity (Clear) Urine pH (5-8) Ur Specific [place] (1.005-1.025) Urine Protein (Neg-Trace) mg/dL Urine Ketones (Negative) mg/dL Urine Blood (Negative) Urine Nitrite (Negative) Urine Bilirubin (Negative) Urine Urobilinogen (Up to 0.2) mg/dL Ur Leukocyte Esterase (Negative) Urine RBC (0-2) HPF Urine WBC (0-5) HPF Ur Epithelial Cells (Negative) HPF Urine Crystals (Negative) HPF Urine Bacteria (Negative) HPF Urine Mucus (Negative) Ur Culture Indicated? Urine Glucose (Negative) mg/dL Medical Decision Making .emergentt evaluation of dizziness, edwards, syncope. patient's medical record reviewed and noted she has been evaluated for chronic dizziness /lightheadedness by ENt. she has a non focal neuro exam. she has no appeciable vocal changes on my exam. edwards not consistent with acute intracranial etiology or infectious etiology. EKG without acute etiology. I suspect the syncope was provoked as it occured just comingo out of the shower and likely vasovagal in nature. no orthostatic changes on exam. labs obtained, slightly elevated wbc @11, no anemia. renal function at baseline, no other electrolyte derangment. no uti. CTA obtained to fully evaluate given patient's subjective neuro findings and this is unremarkable. patient was asymptomatci on re-eval. given that these are chronic symptoms, no indication for hospital admission at this time. recommend close f/u with PCP. PFSH All Active Problems (Updated 03/08/25 @ 21:20 by Vazquez Villegas MD) Syncope (Chronic) Dizziness (Acute) Fatigue (Acute) Change in voice (Acute) Rotator cuff tear, right (Acute) Arthritis of right glenohumeral joint (Acute) Arthropathy of left shoulder (Acute) Left shoulder pain (Acute) Leukocytosis (Acute) Medical History Pain in buttock Nodule of right lung Left knee pain Depressive disorder Abnormal CT scan, chest Change in skin mole Bilateral carotid artery stenosis Aortic valve stenosis, nonrheumatic Aneurysm Abnormal radiograph Chronic GERD Depression Tubular adenoma of colon (~11/06/22) Abdominal bloating Chronic nausea Chest pain Overweight Family history of colon cancer Rheumatoid arthritis Nicotine dependence Motion sickness Low back pain Mingus lesion of lung Aortic stenosis HTN (hypertension) Surgical History History of throat surgery cyst removed S/P AVR (aortic valve replacement) (~03/20/17) History of colonoscopy with polypectomy (~11/06/22) History of colonoscopy 08/26/2016 @[facility] 11/19/2009 @[facility] with polypectomies= Hyperplastic History of tonsillectomy Family History Mother Cancer Father Stroke Cancer Social History Smoking/Tobacco Use Status: Former Tobacco Use Quit Date: 09/14/22 Smoking risk assessment performed?: Yes Alcohol Intake: current Alcohol Intake frequency: holidays/special occasions only Alcohol type: beer Drug use: Never Substance use type: does not use Housing: house Do you feel safe at home: Yes Do you feel safe in your relationship?: Yes
== END 2025-03-08 21:28 | disposition home or self-care (01) ==
PROVIDERS: Emergency Provider Emergency Medicine; PCP Family Medicine
DX: R55 Syncope and collapse (principal); I10 Essential (primary) hypertension; Z95.2 Presence of prosthetic heart valve; Z79.82 Long term (current) use of aspirin; Z87.891 Personal history of nicotine dependence
CPT/HCPCS: 70496; 70498; 80053; 82962; 93005; 99284; 71045; 81003; 81015; 83735; 84443; 84484; 85025; 93010; J3490

== ENCOUNTER 2025-03-21 12:24 | Emergency (ER) | payer MEDICARE, SELFPAY ==
[2025-03-21] VITALS (31 sets, daily range): BP systolic 117–136; BP diastolic 54–66; PULSE 55–66; RESP 16–20; TEMP 36.7; O2SAT 95–96
--- NOTE | 2025-03-21 12:15 | RT.EKG_ITS ---
APPROVED REPORT Exam: Resting ECG Reason for Exam: Lightheadedness Chest Tightness Patient Location: E HR:55 bpm ECG Measurements Heart Rate 55 AXIS NC 216 P 2 QRSd 94 QRS 14 QT 439 T 50 QTc 422 Conclusion Sinus bradycardia...rate< 60 Borderline prolonged NC interval...NC >212, V-rate 50- 90 No Occlusion MA
--- NOTE | 2025-03-21 13:30 | DI.RAD_ITS ---
Exam(s) XR CHEST 2V PA LATERAL EXAM: XR CHEST 2V PA LATERAL CLINICAL HISTORY: sternal CP TECHNIQUE: 2D digital imaging was performed. Two views. COMPARISON: CR,XR XR PORTABLE CHEST AP from 03/08/2025 FINDINGS: HEART: Normal size. Aortic valve prosthesis. Mitral annular calcifications. Aorta: Not dilated. Calcified. PULMONARY VASCULATURE: Normal. MEDIASTINUM: Unremarkable. LUNGS: Clear. PLEURAL SPACE: No pleural effusion or pneumothorax. BONE:Unremarkable for age. Sternal wires. SOFT TISSUES: Unremarkable. IMPRESSION: No acute abnormality. DATA REPOSITORY: RADIATION DOSE DELIVERED:
--- NOTE | 2025-03-21 13:30 | DI.CT_ITS ---
Exam(s) CT BRAIN NECK CTA EXAM: CT BRAIN NECK CTA CLINICAL HISTORY: new lightheadedness/not acting like self. TECHNIQUE: Imaging Protocol: Axial CT angiography was performed with multi- slice acquisition and multi-planar and MIP reconstructions. CONTRAST MATERIAL: Intravenous: Omnipaque 350 Contrast volume:70 ml COMPARISON: CT CT BRAIN NECK CTA from 03/08/2025 CR XR CHEST 2V PA LATERAL from 03/21/2025 FINDINGS: CT Head W/O and W contrast: Ventricles and Extra axial spaces: Normal in size and morphology for the patient's age. Hemorrhage: None. Cerebral parenchyma: No evidence of acute infarct or mass. Midline shift: None. Brainstem/Cerebellum: No acute findings.. Calvarium: Normal. Visualized Paranasal sinuses/Mastoids: Clear. Soft Tissues: Unremarkable. Enhancement: Normal. Venous sinuses are patent. CTA Brain W: Internal Carotid Arteries: Right: No aneurysm, occlusion or significant stenosis. Left: No aneurysm, occlusion or significant stenosis. Middle Cerebral Arteries: Right: No aneurysm, occlusion or significant stenosis. Left: No aneurysm, occlusion or significant stenosis. Anterior Cerebral Arteries: Right: No aneurysm, occlusion or significant stenosis. Left: No aneurysm, occlusion or significant stenosis. Posterior cerebral Arteries: Right: No aneurysm, occlusion or significant stenosis. Left: No aneurysm, occlusion or significant stenosis. Vertebral Arteries: Right: No aneurysm, occlusion or significant stenosis. Left: No aneurysm, occlusion or significant stenosis. Basilar Artery: No aneurysm, occlusion or significant stenosis. CTA Neck W: Common Carotid: Calcified plaque at both bulbs. Right: No dissection, occlusion or significant stenosis. Left: No dissection, occlusion or significant stenosis. External Carotid: Right: No dissection, occlusion or significant stenosis. Left: No dissection, occlusion or significant stenosis. Internal Carotid: Calcified plaque at both bulbs. Right: No dissection, occlusion. Mild stenosis. Left: No dissection, occlusion. Severe stenosis. Vertebral Artery: Right: No dissection, occlusion or significant stenosis. Left: Calcification at the origin. No dissection, occlusion or significant stenosis. Lung Apices: No significant change in ground-glass opacities at the lung apices. Severe atherosclerotic changes at the aortic arch. Bones: No acute abnormality. Sternal wires. Degenerative changes in the cervical spine. Soft Tissues: Normal. IMPRESSION: 1. CTA brain: Normal CTA examination of the [place]. 2. Head CT: No acute abnormality. 3. CTA neck: No evidence of dissection. Heavy calcific plaque at the common carotid bulbs causing severe stenosis on the left and mild stenosis on the right. Findings stable from prior exam. RADIATION DOSE DELIVERED: Total DLP DATA REPOSITORY: All CT scans at this facility are submitted to the National Radiology Data Registry (NRDR) Dose Index Registry (DIR) with the [employer] ([employer]). RADIATION OPTIMIZATION: All CT scans at this facility use at least one of these dose optimization techniques: automated exposure control; mA and/or kV adjustment per patient size (includes targeted exams where dose is matched to clinical indication); or iterative reconstruction.
[2025-03-21 14:03] LABS: Abs Immature Grans 0.06 10^3/uL (0.0-0.06); HCT 41.6 % (36.0-46.0); HGB 13.7 g/dL (11.2-15.7); Immature Grans % 0.4 %; MCH 30.1 pg (27.0-33.0); MCHC 32.9 % (32.0-36.0); MCV 91 fL (80-95); MPV 10.7 fL (8.0-11.0); Platelet Count 198 10^3/uL (130-400); RBC 4.55 10^6/uL (3.93-5.22); RDW 12.9 % (11.7-14.6); RDW-SD 42.8 fL; WBC 13.64 10^3/uL (4.4-10.8)
[2025-03-21] MEDS: Mylanta Suspension 30 ML CUP PO (14:06)
[2025-03-21] MEDS: Aspirin 81 MG CHEW 324 MG CH (14:06)
[2025-03-21 14:36] LABS: ALT 53 U/L (14-59); AST 39 U/L (15-37); Albumin 4.0 g/dL (3.4-5.0); Alkaline Phosphatase 56 U/L (46-116); Anion Gap 9.7 mmol/L (3-11); BUN 35 mg/dL (7-18); Bilirubin, Total 0.5 mg/dL (0.2-1.0); CO2 28.3 mmol/L (21.0-32.0); Calcium 9.7 mg/dL (8.5-10.1); Chloride 103 mmol/L (98-107); Estimated GFR 50.48 (mL/min/1.73m2); Glucose 147 mg/dL (74-106); Lipase 50 U/L (<78); Magnesium 1.8 mg/dL (1.8-2.4); NT-proBNP 433 pg/mL (<300); Potassium 4.7 mmol/L (3.5-5.1); Sodium 141 mmol/L (136-145); Total Protein 7.8 g/dL (6.4-8.2); Troponin I 8 ng/L (<or=51)
--- NOTE | 2025-03-21 14:38 | W.ED.GENAD ---
Discharge Plan Disposition Patient Disposition: Home Condition: Stable Discharge Details Clinical Impression: Dizziness, Chest pain Primary Care Provider: Babar Mclaughlin ED Provider: Bindu Perrin Home Meds and New Rx's Prescriptions: New meclizine 12.5 mg tablet 12.5 mg PO BID PRN (Reason: dizziness) Qty: 7 0RF Rx Instructions: Please take 1 tablet by mouth 2 times daily as needed for dizziness. Continued aspirin [Adult Aspirin Regimen] 81 mg tablet,delayed release (DR/EC) 81 mg PO DAILY multivitamin Tablet 1 tab PO DAILY acetaminophen 325 mg capsule 325 mg PO ONCE PRN epinephrine 0.3 mg/0.3 mL Auto-Injector 0.3 mg IM PRN PRN metoprolol tartrate 25 mg Tablet 25 mg PO DAILY escitalopram oxalate 20 mg tablet 20 mg PO DAILY Patient Comments: TAKE ONE TABLET BY MOUTH EVERY DAY (DME) OneTouch Verio test strips Strip MISCELLANEOUS Patient Comments: TEST BLOOD SUGAR 2 TIMES A DAY losartan-hydrochlorothiazide 100-25 mg tablet 1 tab PO DAILY Patient Comments: TAKE ONE TABLET BY MOUTH EVERY DAY prednisone 5 mg tablet 5 mg PO DAILY Patient Comments: TAKE THREE TABLETS BY MOUTH EVERY DAY WITH FOOD OR MILK apple cider vinegar 1 tab PO DAILY omega 8-qgr-fxz-fish oil [Fish Oil] 1,200 (144-216) mg capsule 1 cap PO DAILY (DME) lancets [OneTouch Delica Plus Lancet] 33 gauge misc MISCELLANEOUS Patient Comments: TEST BLOOD SUGAR TWO TIMES A DAY Discharge Instructions Instructions: Carotid Artery Stenosis (DC), Chest Pain, Adult ED, Dizziness, Adult ED Additional Instructions: At this time no evidence of heart attack, you do have some left-sided carotid stenosis and plaque and some mild stenosis on the right. Please discuss this with your [facility] cardiology team. Follow up with primary care provider in 3-5 days. Return to ED sooner if any worsening or concerns. Thank you for allowing us to care for you today Referrals: [facility] [Outside, Cardiology] Referral Note: Carotid stenosis Clinical Impression: Dizziness; Chest pain Babar Mclaughlin [Primary Care Provider, Medicine] - 5 days Discharge Data Discharge Date/Time-TO BE ENTERED AT DEPARTURE: 03/21/25 18:23 HPI <Ting Musa - Last Filed: 03/21/25 16:13> General Date/Time Provider Initiated Documentation: 03/21/25 12:47. HPI Narrative: Yumiko is a 71-year-old female who presents to the emergency department for evaluation of cognitive changes/not acting like herself per daughter, as well as persistent lightheadedness, accompanied by subjective facial numbness, chest pressure, and mid back pain. Yumiko reports that she had severe lightheadedness since waking up at 0930 accompanied by a mild headache, sternal chest discomfort and mid back pain. These are symptoms that she has been experiencing consistently for the last 2 weeks with ED workups at both [facility] and [facility]; she reports that they normally occur only for an hour each day, but have been persistent throughout the day today. Dizziness is exacerbated by bending over. Mild blurred vision earlier today, now resolved. Daughter reports that she does not quite seem like herself, has been having some trouble finding words and could not figure out how to use her phone this morning. Patient denies fever/chills, current vision changes, congestion, shortness of breath/difficulty breathing, sore throat, ear pain, nausea/vomiting, abdominal pain, distal numbness/tingling or weakness, change in bowel or bladder function. 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 She does have an appointment with plant operator helper Dr. Bates in a few weeks, currently has a Zio patch in place for monitoring of cardiac rhythm PAST SURGICAL HISTORY: Valve replacement with bovine valve over 9 years ago. Related Data Home Medications ?Medication ?Instructions ?Recorded ?Confirmed epinephrine 0.3 mg/0.3 mL 0.3 mg IM PRN PRN 12/31/20 11/17/24 injection, auto-injector metoprolol tartrate 25 mg tablet 25 mg PO DAILY 12/31/20 11/17/24 aspirin 81 mg tablet,delayed 81 mg PO DAILY 07/28/22 11/17/24 release (Adult Aspirin Regimen) blood sugar diagnostic (OneTouch 10/20/23 11/17/24 Verio test strips) escitalopram oxalate 20 mg tablet 20 mg PO DAILY 10/20/23 11/17/24 multivitamin 1 tab PO DAILY 12/22/23 11/17/24 acetaminophen 325 mg capsule 325 mg PO ONCE PRN 01/20/24 11/17/24 losartan 100 1 tab PO DAILY 05/27/24 11/17/24 mg-hydrochlorothiazide 25 mg tablet apple cider vinegar 1 tab PO DAILY 11/14/24 11/17/24 lancets 33 gauge (OneTouch Delica 11/14/24 11/17/24 Plus Lancet) omega 5-bqz-ctn-fish oil 1,200 mg 1 cap PO DAILY 11/14/24 11/17/24 (144 mg-216 mg) capsule (Fish Oil) prednisone 5 mg tablet 5 mg PO DAILY 11/14/24 11/17/24 meclizine 12.5 mg tablet 12.5 mg PO BID PRN dizziness #7 03/21/25 tabs Previous Rx's ?Medication ?Instructions ?Recorded meclizine 12.5 mg tablet 12.5 mg PO BID PRN dizziness #7 03/21/25 tabs Allergies Allergy/AdvReac Type Severity Reaction Status Date / Time hornet venom Allergy Severe Anaphylaxis Verified 03/21/25 12:37 latex Allergy RASH Verified 03/21/25 12:37 adhesive tape AdvReac Skin Rash Verified 03/21/25 12:37 General Stated Complaint: GenMedical JOSE JUAN: 3 Exam <Ting Musa [facility] Filed: 03/21/25 16:13> Narrative Exam Narrative: General Appearance: Normal. Vital signs: Within normal limits. Respiratory: Clear lung sounds bilaterally. Easy work of breathing, able to speak in full sentences Cardiovascular: Regular heart sounds, no murmurs. GI: Abdomen is soft, nondistended, nontender to palpation Skin: Warm and dry, no rash. Neurological: Cranial nerves II-XII intact. EOMs intact, no nystagmus. Normal facial strength. Clear speech. Strength 5/5 in all extremities, sensation grossly intact. Normal Romberg, finger to finger, finger-nose, rapid alternating movements, [id number], gait. Patient does have some wobbling with tandem gait, however says that she normally has poor balance. Psychiatric: Normal. Course <Ting Musa [facility] Filed: 03/21/25 16:13> Vital Signs Vital signs: Vital Signs Temperature 36.7 C 03/21/25 12:30 Pulse 59 L 03/21/25 12:30 Respiratory Rate 20 03/21/25 12:30 Blood Pressure 117/54 L 03/21/25 12:30 Pulse Oximetry 95 03/21/25 12:30 Temperature 36.7 C 03/21/25 12:30 Temperature Source Oral 03/21/25 12:30 Pulse 59 L 03/21/25 12:30 Respiratory Rate 16 03/21/25 13:52 Respiratory Effort Normal, Non-Labored 03/21/25 13:52 Respiratory Depth Normal 03/21/25 13:52 Respiratory Pattern Normal 03/21/25 13:52 Blood Pressure 117/54 L 03/21/25 12:30 Blood Pressure Position Sitting 03/21/25 12:30 Pulse Oximetry 95 03/21/25 12:30 Oxygen Delivery Method Room Air 03/21/25 12:30 Oxygen Flow Rate 0 03/21/25 12:30 Pain Level 4 03/21/25 12:30 Lab/Test Results Lab/Test Results: Laboratory Tests Range/Units 03/21/25 13:45 WBC (4.4-10.8) 10^3/uL 13.64 H RBC (3.93-5.22) 10^6/uL 4.55 Hgb (11.2-15.7) g/dL 13.7 Hct (36.0-46.0) % 41.6 MCV (80-95) fL 91 MCH (27.0-33.0) pg 30.1 MCHC (32.0-36.0) % 32.9 RDW (11.7-14.6) % 12.9 Plt Count (130-400) 10^3/uL 198 MPV (8.0-11.0) fL 10.7 Immature Gran % % 0.4 Neutrophils % % 75.7 Lymphocytes % % 15.1 Monocytes % % 6.5 Eosinophils % % 1.8 Basophils % % 0.5 Nucleated RBC % (0.0-0.3) % 0.0 Absolute Neutrophils (1.2-6.7) 10^3/uL 10.33 H Absolute Lymphocytes (1.2-3.4) 10^3/uL 2.06 Absolute Monocytes (0.1-0.8) 10^3/uL 0.89 H Absolute Eosinophils (0.0-0.7) 10^3/uL 0.25 Absolute Basophils (0.0-0.2) 10^3/uL 0.07 Sodium (136-145) mmol/L 141 Potassium (3.5-5.1) mmol/L 4.7 Chloride (98-107) mmol/L 103 Carbon Dioxide (21.0-32.0) mmol/L 28.3 Anion Gap (3-11) mmol/L 9.7 BUN (7-18) mg/dL 35 H Creatinine (0.55-1.02) mg/dL 1.1 H Est GFR (CKD-EPI 2020) (mL/min/1.73m2) 50.48 Glucose (74-106) mg/dL 147 H Calcium (8.5-10.1) mg/dL 9.7 Magnesium (1.8-2.4) mg/dL 1.8 Total Bilirubin (0.2-1.0) mg/dL 0.5 AST (15-37) U/L 39 H ALT (14-59) U/L 53 Alkaline Phosphatase (46-116) U/L 56 Troponin I (<or=51) ng/L 8 NT-Pro-B Natriuret Pep (<300) pg/mL 433 H Total Protein (6.4-8.2) g/dL 7.8 Albumin (3.4-5.0) g/dL 4.0 Lipase (<78) U/L 50 Medical Decision Making <Ting Musa - Last Filed: 03/21/25 16:13> Initial Assessment: 71-year-old female with persistent lightheadedness, cognitive difficulties, facial numbness, mild chest pressure, and mild middle back pain since waking up at 930 this morning. History of carotid artery calcification and bovine valve replacement. Differential Diagnosis: CVA/TIA (unlikely in setting of reassuring physical exam/lack of neuro deficits and chronicity of symptoms), ACS, cardiac arrhythmia, CHF, carotid artery occlusion or dissection, electrolyte imbalance, dehydration, GERD ED Course: -CTA brain and neck ordered. - Blood work and urine tests ordered. -Physical exam performed, no acute neurological deficits I independently interpreted the following tests: EKG shows a sinus bradycardia, rate 55. No changes consistent with acute ischemia. Borderline prolonged LA interval (216), otherwise normal intervals. White cell count slightly elevated, 13.64 (patient does have a history of leukocytosis at baseline and takes prednisone daily). CMP unchanged from baseline. Mild elevated BNP, unchanged from previous. Troponin reassuring at 8. Lipase, magnesium unremarkable. Final Assessment: Evaluated for severe dizziness, cognitive difficulties, and facial numbness. Head scan, blood work, and urine tests ordered. Regular heart sounds, no murmurs. Mild chest pressure and middle back pain noted. Clinical Impression: - Severe dizziness - Cognitive difficulties - Facial numbness - Mild chest/mid back pressure Handoff report given to Bindu Perrin NP, evening CLARE, CTA read pending. Disposition: - Appointment with plant operator helper Dr. Bates on 04/06/2025. Patient consented to the use of [facility] Imaging Data Radiologic Study: Radiologist's impression: Exam(s) XR CHEST 2V PA LATERAL EXAM: XR CHEST 2V PA LATERAL CLINICAL HISTORY: sternal CP TECHNIQUE: 2D digital imaging was performed. Two views. COMPARISON: CR,XR XR PORTABLE CHEST AP from 03/08/2025 FINDINGS: HEART: Normal size. Aortic valve prosthesis. Mitral annular calcifications. Aorta: Not dilated. Calcified. PULMONARY VASCULATURE: Normal. MEDIASTINUM: Unremarkable. LUNGS: Clear. PLEURAL SPACE: No pleural effusion or pneumothorax. BONE:Unremarkable for age. Sternal wires. SOFT TISSUES: Unremarkable. IMPRESSION: No acute abnormality. <Bindu Perrin NP - Last Filed: 03/21/25 23:16> Medical Records Medical records reviewed: Yes I reviewed the patient's medical records. Medical records narrative: 1600: SJ: Care assumed from provider (Ting ERVIN) Please see their initial HPI, PE, and documentation. Discussed patient details and case and pending workup and disposition. Patient is hemodynamically stable, and alert and oriented. Awaiting CT head and neck. Normal CTA examination of the [place], no acute abnormality in the head CT CTA neck shows no evidence of dissection. There is heavy calcific plaque at the common carotid bulbs causing severe stenosis on the left and mild on the right. Findings stable from prior exam. Please see official result. Patient is being followed by [facility]. She does have a ZIO patch monitor on will defer to Dr. Bates and her [facility] cardiology team. She is refusing to give a urine sample at this time. UA canceled. Patient remained hemodynamically stable, alert and oriented and at baseline throughout the remainder of her stay. Patient discharged with home care follow-up care and strict return instructions. This text was generated using [employer] system, please disregard any oddities of phrase or misspellings. Lab Data Lab results reviewed: Yes I reviewed the patient's lab results. Labs: Laboratory Tests Range/Units 03/21/25 03/21/25 03/21/25 13:45 15:25 16:50 WBC (4.4-10.8) 10^3/uL 13.64 H RBC (3.93-5.22) 10^6/uL 4.55 Hgb (11.2-15.7) g/dL 13.7 Hct (36.0-46.0) % 41.6 MCV (80-95) fL 91 MCH (27.0-33.0) pg 30.1 MCHC (32.0-36.0) % 32.9 RDW (11.7-14.6) % 12.9 Plt Count (130-400) 10^3/uL 198 MPV (8.0-11.0) fL 10.7 Immature Gran % % 0.4 Neutrophils % % 75.7 Lymphocytes % % 15.1 Monocytes % % 6.5 Eosinophils % % 1.8 Basophils % % 0.5 Nucleated RBC % (0.0-0.3) % 0.0 Absolute Neutrophils (1.2-6.7) 10^3/uL 10.33 H Absolute Lymphocytes (1.2-3.4) 10^3/uL 2.06 Absolute Monocytes (0.1-0.8) 10^3/uL 0.89 H Absolute Eosinophils (0.0-0.7) 10^3/uL 0.25 Absolute Basophils (0.0-0.2) 10^3/uL 0.07 Sodium (136-145) mmol/L 141 Potassium (3.5-5.1) mmol/L 4.7 Chloride (98-107) mmol/L 103 Carbon Dioxide (21.0-32.0) mmol/L 28.3 Anion Gap (3-11) mmol/L 9.7 BUN (7-18) mg/dL 35 H Creatinine (0.55-1.02) mg/dL 1.1 H Est GFR (CKD-EPI 2020) (mL/min/1.73m2) 50.48 Glucose (74-106) mg/dL 147 H Calcium (8.5-10.1) mg/dL 9.7 Magnesium (1.8-2.4) mg/dL 1.8 Total Bilirubin (0.2-1.0) mg/dL 0.5 AST (15-37) U/L 39 H ALT (14-59) U/L 53 Alkaline Phosphatase (46-116) U/L 56 Troponin I (<or=51) ng/L 8 8 7 NT-Pro-B Natriuret Pep (<300) pg/mL 433 H Total Protein (6.4-8.2) g/dL 7.8 Albumin (3.4-5.0) g/dL 4.0 Lipase (<78) U/L 50 Urine Color Urine Clarity Urine pH Ur Specific [place] Urine Protein Urine Ketones Urine Blood Urine Nitrite Urine Bilirubin Urine Urobilinogen Ur Leukocyte Esterase Urine Glucose Range/Units 03/21/25 17:15 WBC (4.4-10.8) 10^3/uL RBC (3.93-5.22) 10^6/uL Hgb (11.2-15.7) g/dL Hct (36.0-46.0) % MCV (80-95) fL MCH (27.0-33.0) pg MCHC (32.0-36.0) % RDW (11.7-14.6) % Plt Count (130-400) 10^3/uL MPV (8.0-11.0) fL Immature Gran % % Neutrophils % % Lymphocytes % % Monocytes % % Eosinophils % % Basophils % % Nucleated RBC % (0.0-0.3) % Absolute Neutrophils (1.2-6.7) 10^3/uL Absolute Lymphocytes (1.2-3.4) 10^3/uL Absolute Monocytes (0.1-0.8) 10^3/uL Absolute Eosinophils (0.0-0.7) 10^3/uL Absolute Basophils (0.0-0.2) 10^3/uL Sodium (136-145) mmol/L Potassium (3.5-5.1) mmol/L Chloride (98-107) mmol/L Carbon Dioxide (21.0-32.0) mmol/L Anion Gap (3-11) mmol/L BUN (7-18) mg/dL Creatinine (0.55-1.02) mg/dL Est GFR (CKD-EPI 2020) (mL/min/1.73m2) Glucose (74-106) mg/dL Calcium (8.5-10.1) mg/dL Magnesium (1.8-2.4) mg/dL Total Bilirubin (0.2-1.0) mg/dL AST (15-37) U/L ALT (14-59) U/L Alkaline Phosphatase (46-116) U/L Troponin I (<or=51) ng/L NT-Pro-B Natriuret Pep (<300) pg/mL Total Protein (6.4-8.2) g/dL Albumin (3.4-5.0) g/dL Lipase (<78) U/L Urine Color Cancelled Urine Clarity Cancelled Urine pH Cancelled Ur Specific [place] Cancelled Urine Protein Cancelled Urine Ketones Cancelled Urine Blood Cancelled Urine Nitrite Cancelled Urine Bilirubin Cancelled Urine Urobilinogen Cancelled Ur Leukocyte Esterase Cancelled Urine Glucose Cancelled [facility] <Ting Musa - Last Filed: 03/21/25 16:13> All Active Problems (Updated 03/21/25 @ 17:50 by Bindu Perrin NP) Chest pain (Acute) Syncope (Chronic) Dizziness (Acute) Fatigue (Acute) Change in voice (Acute) Rotator cuff tear, right (Acute) Arthritis of right glenohumeral joint (Acute) Arthropathy of left shoulder (Acute) Left shoulder pain (Acute) Leukocytosis (Acute) Medical History Pain in buttock Nodule of right lung Left knee pain Depressive disorder Abnormal CT scan, chest Change in skin mole Bilateral carotid artery stenosis Aortic valve stenosis, nonrheumatic Aneurysm Abnormal radiograph Chronic GERD Depression Tubular adenoma of colon (~11/06/22) Abdominal bloating Chronic nausea Chest pain Overweight Family history of colon cancer Rheumatoid arthritis Nicotine dependence Motion sickness Low back pain [place] lesion of lung Aortic stenosis HTN (hypertension) Surgical History History of throat surgery cyst removed S/P AVR (aortic valve replacement) (~03/20/17) History of colonoscopy with polypectomy (~11/06/22) History of colonoscopy 08/26/2016 @[facility] 11/19/2009 @[facility] with polypectomies= Hyperplastic History of tonsillectomy Family History Mother Cancer Father Stroke Cancer Social History Smoking/Tobacco Use Status: Former Tobacco Use Quit Date: 09/14/22 Smoking risk assessment performed?: Yes Alcohol Intake: current Alcohol Intake frequency: holidays/special occasions only Alcohol type: beer Drug use: Never Substance use type: does not use Housing: house Do you feel safe at home: Yes Do you feel safe in your relationship?: Yes
[2025-03-21 15:59] LABS: Troponin I 8 ng/L (<or=51)
[2025-03-21] MEDS: Omnipaque 350 MG/ML 100 ML BTL 70 ML IJ (16:18)
[2025-03-21] MEDS: Normal Saline - Diluent 50 ML VIAL IJ (16:19)
[2025-03-21 17:16] LABS: Troponin I 7 ng/L (<or=51)
== END 2025-03-21 18:23 | disposition home or self-care (01) ==
PROVIDERS: Nurse Practitioner Family; Emergency Provider Registered Nurse Emergency; PCP Family Medicine
DX: R42 Dizziness and giddiness (principal); R07.9 Chest pain, unspecified; K21.9 Gastro-esophageal reflux disease without esophagitis; R51.9 Headache, unspecified
CPT/HCPCS: 99285; 99284; 36415; 70496; 70498; 80053; 83690; 93005; 71046; 81003; 83735; 83880; 84484; 85025; 93010; J3490

== ENCOUNTER → 2025-05-25 13:26 | Outpatient (BNVA) | payer MEDICARE, SELFPAY | PROVIDERS: PCP Family Medicine; Visit Provider Internal Medicine Cardiovascular Disease | DX: Z95.2 Presence of prosthetic heart valve (principal) | CPT/HCPCS: 99213 ==

== ENCOUNTER 2025-06-08 04:07 | Outpatient (CLI) | payer MEDICARE, SELFPAY ==
--- NOTE | 2025-06-08 | DI.MAMMO_ITS ---
Exam(s) MAMMO SCREENING EXAM: MAMMO SCREENING CLINICAL HISTORY: SCREENING MAMMO Z12.31 TECHNIQUE: Mammograms were interpreted according to the usual protocol including computer analysis with CAD system, tomosynthesis and C-view imaging. COMPARISON: 2020 through 2022 FINDINGS: The breasts are composed of scattered fibroglandular densities, Breast Density category B. No suspicious masses or suspicious microcalcifications are seen. No skin thickening or abnormal axillary lymph nodes are seen. There has been no significant change from prior exams. IMPRESSION: BI-RADS Category 1, Negative mammogram Yearly screening mammography is recommended. Breast Density - Category B - There are scattered areas of fibroglandular density. Breast density Category C or D implies that the patient has dense breast tissue. Dense breast tissue can make it harder to find cancer on a mammogram. Dense breast tissue is also associated with an increased risk of breast cancer. This information about the result of the mammogram report was provided to the patient to raise their awareness. Use this report when you speak with the patient about their risks for breast cancer, which includes their family history. At that time, you may recommend additional screening tests (Ultrasound or MRI) as these tests may add significant information. A negative radiographic report should not delay biopsy if a dominant or clinically suspicious mass is present. Up to ten percent of cancers are not identified on mammography. A negative report may reinforce clinical impression. Adenosis and dense breasts may obscure an underlying neoplasm. False positive reports average 6 to 10%. Patient will receive a letter notifying them of these results.
== END 2025-06-08 04:27 ==
LOC: DI 04:07
PROVIDERS: PCP Family Medicine; Visit Provider Family Medicine
DX: Z12.31 Encounter for screening mammogram for malignant neoplasm of breast (principal)
CPT/HCPCS: 77063; 77067

== ENCOUNTER 2025-06-08 08:21 | Emergency (ER) | payer MEDICARE, SELFPAY ==
--- NOTE | 2025-06-08 08:30 | DI.RAD_ITS ---
Exam(s) XR FOOT LT COMPLETE EXAM: XR FOOT LT COMPLETE CLINICAL HISTORY: swelling, redness, 1st mtp, pain. TECHNIQUE: 2D digital imaging was performed. Three views. COMPARISON: No exams were available for comparison FINDINGS: BONES: No acute fracture is present. No bony destructive lesion is seen. Plantar calcaneal spur. JOINTS: No dislocation present. Mild degenerative changes at the 1st MTP joint and mild hallux valgus. Some flattening of the plantar arch. Hammertoe deformity of the 2nd toe. SOFT TISSUE: Mild soft tissue swelling adjacent to the 1st metatarsal head. No foreign body. IMPRESSION: Mild hallux valgus and degenerative changes of the 1st MTP joint. No bony erosions or evidence of fracture. DATA REPOSITORY: RADIATION DOSE DELIVERED:
[2025-06-08 08:34] VITALS: BP 117/75; PULSE 104; RESP 14; TEMP 36.7; O2SAT 95
[2025-06-08 09:04] LABS: Abs Immature Grans 0.04 10^3/uL (0.0-0.06); HCT 38.5 % (36.0-46.0); HGB 12.7 g/dL (11.2-15.7); Immature Grans % 0.3 %; MCH 30.0 pg (27.0-33.0); MCHC 33.0 % (32.0-36.0); MCV 91 fL (80-95); MPV 10.6 fL (8.0-11.0); Platelet Count 172 10^3/uL (130-400); RBC 4.23 10^6/uL (3.93-5.22); RDW 13.0 % (11.7-14.6); RDW-SD 42.5 fL; WBC 13.14 10^3/uL (4.4-10.8)
[2025-06-08 09:35] LABS: ALT 40 U/L (14-59); AST 23 U/L (15-37); Albumin 3.3 g/dL (3.4-5.0); Alkaline Phosphatase 49 U/L (46-116); Anion Gap 7.7 mmol/L (3-11); BUN 30 mg/dL (7-18); Bilirubin, Total 0.5 mg/dL (0.2-1.0); C-Reactive Protein 0.50 mg/dL (<or=0.5); CO2 26.3 mmol/L (21.0-32.0); Calcium 9.0 mg/dL (8.5-10.1); Chloride 105 mmol/L (98-107); Estimated GFR 50.48 (mL/min/1.73m2); Glucose 140 mg/dL (74-106); Potassium 4.5 mmol/L (3.5-5.1); Sodium 139 mmol/L (136-145); Total Protein 6.8 g/dL (6.4-8.2); Uric Acid 6.5 mg/dL (2.6-6.0)
[2025-06-08] MEDS: Indomethacin 25 MG CAP 50 MG PO (10:16)
[2025-06-08 10:19] VITALS: PULSE 59; O2SAT 95
--- NOTE | 2025-06-08 14:14 | W.ED.GENAD ---
Discharge Plan Disposition Patient Disposition: Home Condition: Stable Discharge Details Clinical Impression: Swelling of first metatarsophalangeal (MTP) joint of left foot Primary Care Provider: Babar Mclaughlin ED Provider: Kristi Jose Home Meds and New Rx's Prescriptions: New indomethacin 25 mg capsule 25 mg PO TID Qty: 12 0RF Rx Instructions: administer with food or milk Continued aspirin [Adult Aspirin Regimen] 81 mg tablet,delayed release (DR/EC) 81 mg PO DAILY multivitamin Tablet 1 tab PO DAILY acetaminophen 325 mg capsule 325 mg PO ONCE PRN epinephrine 0.3 mg/0.3 mL Auto-Injector 0.3 mg IM PRN PRN metoprolol tartrate 25 mg Tablet 25 mg PO DAILY escitalopram oxalate 20 mg tablet 20 mg PO DAILY Patient Comments: TAKE ONE TABLET BY MOUTH EVERY DAY (DME) OneTouch Verio test strips Strip MISCELLANEOUS Patient Comments: TEST BLOOD SUGAR 2 TIMES A DAY apple cider vinegar 1 tab PO DAILY omega 4-zhw-rgk-fish oil [Fish Oil] 1,200 (144-216) mg capsule 1 cap PO DAILY (DME) lancets [OneTouch Delica Plus Lancet] 33 gauge misc MISCELLANEOUS Patient Comments: TEST BLOOD SUGAR TWO TIMES A DAY losartan 50 mg tablet 50 mg PO DAILY Patient Comments: TAKE ONE TABLET BY MOUTH EVERY DAY Discharge Instructions Instructions: Swollen Joints (DC) Additional Instructions: Please take the indomethacin twice daily or up to 3 times daily for the next 3 to 5 days Take for the shortest period possible to reduce the swelling, redness, and pain Should you have redness that is worsening increase swelling, or worsening pain please return for reassessment I recommend 2-day recheck unless your symptoms have dramatically improved Please follow-up with your primary care physician on Thursday Referrals: Babar Mclaughlin [Primary Care Provider, Medicine] Discharge Data Discharge Date/Time-TO BE ENTERED AT DEPARTURE: 06/08/25 10:22 HPI General Date/Time Provider Initiated Documentation: 06/08/25 08:35. HPI Narrative: This 80-year-old female presents with right great toe swelling the past several days with radiation onto her ankle. She denies any fever or chills. Denies history of similar symptoms in the past specifically denies any history of gout. States it was exquisitely painful last evening but this morning the pain is improved without intervention. She denies any recent trauma does have a history of osteoarthritis per patient. Denies chest pain or shortness of breath. Related Data Home Medications ?Medication ?Instructions ?Recorded ?Confirmed epinephrine 0.3 mg/0.3 mL 0.3 mg IM PRN PRN 12/31/20 06/08/25 injection, auto-injector metoprolol tartrate 25 mg tablet 25 mg PO DAILY 12/31/20 06/08/25 aspirin 81 mg tablet,delayed 81 mg PO DAILY 07/28/22 06/08/25 release (Adult Aspirin Regimen) blood sugar diagnostic ([facility] 10/20/23 06/08/25 Verio test strips) escitalopram oxalate 20 mg tablet 20 mg PO DAILY 10/20/23 06/08/25 multivitamin 1 tab PO DAILY 12/22/23 06/08/25 acetaminophen 325 mg capsule 325 mg PO ONCE PRN 01/20/24 06/08/25 apple cider vinegar 1 tab PO DAILY 11/14/24 06/08/25 lancets 33 gauge ([facility] 11/14/24 06/08/25 Plus Lancet) omega 3-zum-ekk-fish oil 1,200 mg 1 cap PO DAILY 11/14/24 06/08/25 (144 mg-216 mg) capsule (Fish Oil) indomethacin 25 mg capsule 25 mg PO TID #12 caps 06/08/25 losartan 50 mg tablet 50 mg PO DAILY 06/08/25 06/08/25 Previous Rx's ?Medication ?Instructions ?Recorded indomethacin 25 mg capsule 25 mg PO TID #12 caps 06/08/25 Allergies Allergy/AdvReac Type Severity Reaction Status Date / Time hornet venom Allergy Severe Anaphylaxis Verified 06/08/25 08:36 latex Allergy RASH Verified 06/08/25 08:36 adhesive tape AdvReac Skin Rash Verified 06/08/25 08:36 General Stated Complaint: Orthopedic JOSE JUAN: 4 Exam Narrative Exam Narrative: Alert and oriented 80-year-old female in no acute distress patient has swelling and redness noted on her left first metatarsal phalangeal joint, she has mildly reduced range of motion her cap refills intact DP and PT pulses are intact she has no calf swelling or tenderness there is no crepitus there is no lymphangitis slightly warm to touch Course Vital Signs Vital signs: Vital Signs Temperature 36.7 C 06/08/25 08:34 Pulse 104 H 06/08/25 08:34 Respiratory Rate 14 06/08/25 08:34 Blood Pressure 117/75 06/08/25 08:34 Pulse Oximetry 95 06/08/25 08:34 Temperature 36.7 C 06/08/25 08:34 Temperature Source Oral 06/08/25 08:34 Pulse 59 L 06/08/25 10:19 Respiratory Rate 14 06/08/25 08:34 Blood Pressure 117/75 06/08/25 08:34 Blood Pressure Position Sitting 06/08/25 08:34 Pulse Oximetry 95 06/08/25 10:19 Oxygen Delivery Method Room Air 06/08/25 08:34 Oxygen Flow Rate 0 06/08/25 08:34 Lab/Test Results Lab/Test Results: Laboratory Tests Range/Units 06/08/25 08:57 WBC (4.4-10.8) 10^3/uL 13.14 H RBC (3.93-5.22) 10^6/uL 4.23 Hgb (11.2-15.7) g/dL 12.7 Hct (36.0-46.0) % 38.5 MCV (80-95) fL 91 MCH (27.0-33.0) pg 30.0 MCHC (32.0-36.0) % 33.0 RDW (11.7-14.6) % 13.0 Plt Count (130-400) 10^3/uL 172 MPV (8.0-11.0) fL 10.6 Immature Gran % % 0.3 Neutrophils % % 71.6 Lymphocytes % % 16.4 Monocytes % % 8.4 Eosinophils % % 2.7 Basophils % % 0.6 Nucleated RBC % (0.0-0.3) % 0.0 Absolute Neutrophils (1.2-6.7) 10^3/uL 9.41 H Absolute Lymphocytes (1.2-3.4) 10^3/uL 2.15 Absolute Monocytes (0.1-0.8) 10^3/uL 1.10 H Absolute Eosinophils (0.0-0.7) 10^3/uL 0.35 Absolute Basophils (0.0-0.2) 10^3/uL 0.08 Sodium (136-145) mmol/L 139 Potassium (3.5-5.1) mmol/L 4.5 Chloride (98-107) mmol/L 105 Carbon Dioxide (21.0-32.0) mmol/L 26.3 Anion Gap (3-11) mmol/L 7.7 BUN (7-18) mg/dL 30 H Creatinine (0.55-1.02) mg/dL 1.1 H Est GFR (CKD-EPI 2020) (mL/min/1.73m2) 50.48 Glucose (74-106) mg/dL 140 H Uric Acid (2.6-6.0) mg/dL 6.5 H Calcium (8.5-10.1) mg/dL 9.0 Total Bilirubin (0.2-1.0) mg/dL 0.5 AST (15-37) U/L 23 ALT (14-59) U/L 40 Alkaline Phosphatase (46-116) U/L 49 C-Reactive Protein (<or=0.5) mg/dL 0.50 Total Protein (6.4-8.2) g/dL 6.8 Albumin (3.4-5.0) g/dL 3.3 L Medical Decision Making Results: CBC mildly elevated at 13,000 other consistent with patient's prior BUN/creatinine are consistent with patient's prior uric acid is slightly elevated although not necessarily consistent with gout. X-ray of right foot shows osteoarthritic changes to the first metatarsal phalangeal joint Assessment and plan: For this 80-year-old female presenting with foot pain, I am unsure as to whether or not this could be osteoarthritis versus gout. I have lower suspicion for infectious process as this has been present for 3 weeks and there is no lymphangitis and patient has no significant elevation in white blood cell count and is afebrile. I will try indomethacin 2-3 times daily for the next several days to see if that helps her symptoms. I suspect this may be osteoarthritis. Recommendation for 48-hour recheck to be sure she is being treated appropriately. I do not feel antibiotics are indicated at this point although she is given the threshold to return should her symptoms worsen. She is also encouraged to decrease her protein consumption. Return precautions were reviewed and patient expressed understanding PFSH All Active Problems (Updated 06/08/25 @ 10:12 by ELOISA Chaney) Swelling of first metatarsophalangeal (MTP) joint of left foot (Acute) Fatigue (Acute) Change in voice (Acute) Rotator cuff tear, right (Acute) Arthritis of right glenohumeral joint (Acute) Arthropathy of left shoulder (Acute) Left shoulder pain (Acute) Leukocytosis (Acute) Medical History (Updated 06/08/25 @ 10:12 by ELOISA Chaney) Pain in buttock Nodule of right lung Left knee pain Depressive disorder Abnormal CT scan, chest Change in skin mole Bilateral carotid artery stenosis Aortic valve stenosis, nonrheumatic Aneurysm Abnormal radiograph Chronic GERD Depression Tubular adenoma of colon (~11/06/22) Abdominal bloating Chronic nausea Overweight Family history of colon cancer Rheumatoid arthritis Nicotine dependence Motion sickness Low back pain [place] lesion of lung Aortic stenosis HTN (hypertension) Surgical History History of throat surgery cyst removed S/P AVR (aortic valve replacement) (~03/20/17) History of colonoscopy with polypectomy (~11/06/22) History of colonoscopy 08/26/2016 @[facility] 11/19/2009 @[facility] with polypectomies= Hyperplastic History of tonsillectomy Family History Mother Cancer Father Stroke Cancer Social History Smoking/Tobacco Use Status: Former Tobacco Use Quit Date: 09/14/22 Smoking risk assessment performed?: Yes Alcohol Intake: current Alcohol Intake frequency: holidays/special occasions only Alcohol type: beer Drug use: Never Substance use type: does not use Housing: house Do you feel safe at home: Yes Do you feel safe in your relationship?: Yes
== END 2025-06-08 10:22 | disposition home or self-care (01) ==
PROVIDERS: Emergency Provider Physician Assistant; PCP Family Medicine
DX: R22.42 Localized swelling, mass and lump, left lower limb (principal); I10 Essential (primary) hypertension; Z95.2 Presence of prosthetic heart valve; Z79.82 Long term (current) use of aspirin; Z79.899 Other long term (current) drug therapy; Z87.891 Personal history of nicotine dependence
CPT/HCPCS: 36415; 77063; 77067; 80053; 99283; 73630; 84550; 85025; 86140

== ENCOUNTER 2025-06-28 00:15 | Outpatient (CLI) | payer MEDICARE, SELFPAY ==
--- NOTE | 2025-06-28 | DI.CT_ITS ---
Exam(s) CT ABDOMEN PELVIS W EXAM: CT ABDOMEN PELVIS W CLINICAL HISTORY: UNSPECIFIED ABD PAIN, R10.9 TECHNIQUE: Imaging Protocol: Axial computed tomography images with coronal and sagittal reformatted images were created and reviewed. CONTRAST MATERIAL: Intravenous: Omnipaque 350 Contrast volume:100 mL Oral: Yes COMPARISON: CT CT CHEST/ABD/PEL W from 10/20/2023 FINDINGS: ABDOMEN: Lung Bases: No acute abnormality. Liver: There is an area of decreased attenuation in the right lobe of the liver medially which is unchanged and likely reflects an area of focal fatty infiltration. There is focal fatty sparing seen adjacent to the gallbladder. No suspicious masses are seen. Portal, Superior Mesenteric, and Splenic Veins: Unremarkable. Gallbladder and Biliary Tract: There is a tiny calcifications seen in the fundus of the gallbladder consistent with a gallstone. There is no biliary ductal dilatation. Pancreas: Normal density, no abnormal calcifications or inflammatory process. Spleen: Normal. Adrenals: No masses seen. Kidneys: Normal size, contour and axis. No radiodense stones or obstructive uropathy. Small simple cysts are seen in the right kidney. No follow-up is recommended. Abdominal Aorta: Abdominal portion non-dilated. Atherosclerotic calcification is present. There is atherosclerosis seen in the mid and distal superior mesenteric artery with less than 50 percent stenosis. There is atherosclerotic calcifications seen in the iliac and femoral arteries. 50-70 percent stenosis is seen in the right external iliac artery. Bowel: There is diverticulosis of the colon but no evidence of acute diverticulitis. There is no evidence of bowel obstruction or bowel wall thickening. There is no evidence of appendicitis. Peritoneal Cavity: No ascites, collection or mesenteric inflammatory response. No free air. Lymph Nodes: Within normal limits. Bones: Within normal limits for the patient's age. Soft Tissues: There is a small fat containing umbilical hernia. PELVIS: Bladder: Symmetric distention, no gross wall thickening. Reproductive Organs: Unremarkable as visualized. Lymph Nodes: Within normal limits. Bones: Within normal limits for the patient's age. IMPRESSION: 1. There is no acute abdominal or pelvic process. 2. Atherosclerotic calcification is seen in the abdomen with less than 50 percent stenosis of the distal superior mesenteric artery and 50-70 percent stenosis seen in the right external iliac artery. 3. Colonic diverticulosis without evidence of acute diverticulitis. RADIATION DOSE DELIVERED: 665.17mGy.cm Total DLP DATA REPOSITORY: All CT scans at this facility are submitted to the National Radiology Data Registry (NRDR) Dose Index Registry (DIR) with the [employer] (ACR). RADIATION OPTIMIZATION: All CT scans at this facility use at least one of these dose optimization techniques: automated exposure control; mA and/or kV adjustment per patient size (includes targeted exams where dose is matched to clinical indication); or iterative reconstruction.
[2025-06-28] MEDS: Barium Sulfate 2% W/V-Berry Smoothie 450 ML BTL PO ×2 (07:17→07:18)
[2025-06-28] MEDS: Omnipaque 350 MG/ML 500 ML BTL-Imaging package IJ (09:16)
[2025-06-28] MEDS: Normal Saline - Diluent 50 ML VIAL IJ (09:16)
[2025-06-28] MEDS: Normal Saline Flush 10 ML SYR IVP (09:16)
== END 2025-06-28 00:35 ==
LOC: DI 00:15
PROVIDERS: PCP Family Medicine; Visit Provider Family Medicine
DX: R10.9 Unspecified abdominal pain (principal)
CPT/HCPCS: 74177

== ENCOUNTER → 2025-07-19 02:28 | Outpatient (CLI) | payer MEDICARE, SELFPAY ==
--- NOTE | 2025-07-19 | DI.US_ITS ---
Exam(s) US ABDOMEN LIMITED EXAM: US ABDOMEN LIMITED CLINICAL HISTORY: ABD PAIN R10.9 TECHNIQUE: Ultrasound abdomen performed using standard protocol. COMPARISON: CT CT ABDOMEN PELVIS W from 06/28/2025 FINDINGS: There is no ascites evident. LIVER: Liver is hyperechoic indicating steatosis. There are no discrete focal hepatic lesions evident. GALLBLADDER/BILIARY: There is a solitary small echogenic focus in the gallbladder corresponding to what was evident on the recent CT scan. May represent a small gallstone or calcified polyp. No gallbladder wall edema nor pericholecystic fluid. The common hepatic duct is not dilated, measuring 5mm at the level of adilene hepatis. PANCREAS: There is no evidence of pancreatic mass nor dilatation of the pancreatic duct. RIGHT KIDNEY:There is a cyst in the lateral cortex of the right kidney measuring 1.3 x 1.3 x 1.1 cm. No solid mass. No calculi nor hydronephrosis in the right kidney. IMPRESSION: 1. Solitary tiny 5 mm gallstone corresponding to finding on recent CT scan. There is no ultrasound evidence of acute cholecystitis nor dilatation of the biliary tree. 2. Hepatic steatosis also noted, as evident on the prior CT scan 06/28/2025. No discrete focal hepatic lesions. 3. Benign-appearing 13 x 11 mm cyst in the lateral cortex of the right kidney. DATA REPOSITORY:
--- NOTE | 2025-07-19 | DI.NM_ITS ---
Exam(s) NM HEPATOBILIARY SCAN GRP EXAM: NM HEPATOBILIARY SCAN GRP CLINICAL HISTORY: ABD PAIN R10.9. TECHNIQUE: Injected dose: 5 mCi Tc-99 mebrofenin Initial dynamic images: 60 minutes Post-Gallbladder fillin ounce ensure was administered instead of CCK as this patient apparently has a known gallstone. COMPARISON: Prior ultrasound FINDINGS: There is normal uptake and excretion of radiopharmaceutical by the liver and activity is seen within the gallbladder lumen starting at 21 minutes post injection of the radiopharmaceutical. The ejection fraction part of this test is suboptimal due to technical difficulties in that the secreted radiopharmaceutical by the liver down the CBD has traversed the small bowel and appears to be at the level the hepatic flexure of the colon thus overlying the gallbladder region during acquisition of the time activity curve. Therefore reading is less than accurate due to superimposition of opacified??? the gallbladder lumen. The time activity curve did generate an ejection fraction of 39 percent which is low normal. IMPRESSION: 1. Suboptimal study due to technical reasons discussed above. 2. However, there is no obstruction of the cystic duct to suggest acute cholecystitis. 3. The ejection fraction is demonstrated to be low normal, approximately 39 percent. However, this is somewhat inaccurate due to the superimposition of the radiopharmaceutical filled [place] flexure of the colon upon the gallbladder during acquisition of the time activity curve. SNM guidelines: Gallbladder visualization should be present by 3 hours. Delayed [id number] transit beyond 60 min raises the suspicion for partial common bile duct (CBD) obstruction. Gallbladder ejection fraction <35% has a good correlation with acalculous disease (i.e., chronic acalculous cholecystitis, cystic duct syndrome, sphincter of Oddi disease).
== END ==
LOC: DI 02:28
PROVIDERS: PCP Family Medicine; Visit Provider Family Medicine
DX: R10.9 Unspecified abdominal pain (principal); K80.20 Calculus of gallbladder without cholecystitis without obstruction; K76.0 Fatty (change of) liver, not elsewhere classified
CPT/HCPCS: 78227; 76705

== ENCOUNTER 2025-09-04 15:19 | Emergency (ER) | payer MEDICARE, SELFPAY ==
[2025-09-04] VITALS (28 sets, daily range): BP systolic 137–167; BP diastolic 46–64; PULSE 63–81; RESP 13–33; TEMP 36.6; O2SAT 92–98
--- NOTE | 2025-09-04 15:15 | RT.EKG_ITS ---
APPROVED REPORT Exam: Resting ECG Reason for Exam: High BP Patient Location: E HR:72 bpm ECG Measurements Heart Rate 72 AXIS OR 203 P 112 QRSd 82 QRS 25 QT 392 T 47 QTc 429 Conclusion Sinus rhythm...normal P axis, V-rate 60- 99
--- NOTE | 2025-09-04 16:15 | DI.CT_ITS ---
Exam(s) CT HEAD WO EXAM: CT HEAD WO CLINICAL HISTORY: headache. TECHNIQUE: Imaging Protocol: Axial computed tomography images with coronal and sagittal reformatted images were created and reviewed COMPARISON: CT CT BRAIN NECK CTA from 03/21/2025 FINDINGS: There are no skull fractures. There is no fluid in the visualized paranasal sinuses. There is no evidence of intracranial hemorrhage, mass effect, or shift of midline structures. There are no extra-axial fluid collections. The ventricles are not enlarged or shifted and there is no blood within the ventricular system nor within the basal cisterns. There is mild bilateral periventricular hypodensity consistent with chronic small vessel disease. IMPRESSION: No acute intracranial findings on this noninfused CT scan of the brain. There is mild bilateral periventricular hypodensity consistent with chronic small vessel disease. No obvious acute infarct nor intracranial hemorrhage. Called by myself to ER 09/04/2025 at 4:54 p.m. RADIATION DOSE DELIVERED: 863.01mGy.cm Total DLP DATA REPOSITORY: All CT scans at this facility are submitted to the National Radiology Data Registry (NRDR) Dose Index Registry (DIR) with the [employer] (ACR). RADIATION OPTIMIZATION: All CT scans at this facility use at least one of these dose optimization techniques: automated exposure control; mA and/or kV adjustment per patient size (includes targeted exams where dose is matched to clinical indication); or iterative reconstruction.
--- NOTE | 2025-09-04 16:15 | DI.RAD_ITS ---
Exam(s) XR CHEST 2V PA LATERAL EXAM: XR CHEST 2V PA LATERAL CLINICAL HISTORY: chest pain. TECHNIQUE: 2D digital imaging was performed. COMPARISON: CR XR CHEST 2V PA LATERAL from 03/21/2025 FINDINGS: 2 views: Again noted are sternotomy wires and prosthetic aortic valve which is unchanged in position. Heart size is normal. The mediastinum is not widened. Lungs are clear. No infiltrates nor pleural effusions. No evidence of pulmonary edema. IMPRESSION: No acute pulmonary findings.No significant change compared to 03/21/2025 DATA REPOSITORY: RADIATION DOSE DELIVERED:
--- NOTE | 2025-09-04 16:17 | W.ED.GENAD ---
Discharge Plan Disposition Patient Disposition: Home Condition: Stable Discharge Details Clinical Impression: Hypertension, Headache, Chest pain Primary Care Provider: Babar Mclaughlin ED Provider: Buck Porter Home Meds and New Rx's Prescriptions: Continued aspirin [Adult Aspirin Regimen] 81 mg tablet,delayed release (DR/EC) 81 mg PO DAILY multivitamin Tablet 1 tab PO DAILY acetaminophen 325 mg capsule 325 mg PO ONCE PRN epinephrine 0.3 mg/0.3 mL Auto-Injector 0.3 mg IM PRN PRN metoprolol tartrate 25 mg Tablet 25 mg PO DAILY escitalopram oxalate 20 mg tablet 20 mg PO DAILY Patient Comments: TAKE ONE TABLET BY MOUTH EVERY DAY (DME) OneTouch Verio test strips Strip MISCELLANEOUS Patient Comments: TEST BLOOD SUGAR 2 TIMES A DAY omega 1-jdt-kss-fish oil [Fish Oil] 1,200 (144-216) mg capsule 1 cap PO DAILY (DME) lancets [OneTouch Delica Plus Lancet] 33 gauge misc MISCELLANEOUS Patient Comments: TEST BLOOD SUGAR TWO TIMES A DAY losartan 50 mg tablet 50 mg PO DAILY Patient Comments: TAKE ONE TABLET BY MOUTH EVERY DAY No Action indomethacin 25 mg capsule 25 mg PO TID Qty: 12 0RF Rx Instructions: administer with food or milk Discharge Instructions Additional Instructions: Your blood pressures while in the emergency department did not show any significant elevations. Your head CT, chest x-ray and lab work did not show any emergent concerning findings. I would recommend following up with your primary care provider within 1 to 2 weeks. If you feel more ill or have severe worsening pain or high fevers return to the emergency department for reevaluation. Stand Alone Forms: Portal Information HPI General Mode of arrival: ambulatory. Date/Time Provider Initiated Documentation: 09/04/25 15:20. Limitations to Documentation: no limitations. Information obtained by: patient. History of Present Illness 80 year old F presents to the emergency department with the chief complaint of high bp, chest tightness, headache, described as moderate, Patient started experiencing this day(s) (1) and it has been constant. No relieving factors improve symptom(s), No exacerbating factors reported . Patient notes chest pain; denies fever/chills and nausea/vomiting. Patient did receive the following treatments prior to arrival, none Related Data Home Medications ?Medication ?Instructions ?Recorded ?Confirmed epinephrine 0.3 mg/0.3 mL 0.3 mg IM PRN PRN 12/31/20 09/04/25 injection, auto-injector metoprolol tartrate 25 mg tablet 25 mg PO DAILY 12/31/20 09/04/25 aspirin 81 mg tablet,delayed 81 mg PO DAILY 07/28/22 09/04/25 release (Adult Aspirin Regimen) blood sugar diagnostic ([facility] 10/20/23 09/04/25 Verio test strips) escitalopram oxalate 20 mg tablet 20 mg PO DAILY 10/20/23 09/04/25 multivitamin 1 tab PO DAILY 12/22/23 09/04/25 acetaminophen 325 mg capsule 325 mg PO ONCE PRN 01/20/24 09/04/25 lancets 33 gauge ([facility] 11/14/24 09/04/25 Plus Lancet) omega 0-iau-mgc-fish oil 1,200 mg 1 cap PO DAILY 11/14/24 09/04/25 (144 mg-216 mg) capsule (Fish Oil) indomethacin 25 mg capsule 25 mg PO TID #12 caps 06/08/25 09/04/25 losartan 50 mg tablet 50 mg PO DAILY 06/08/25 09/04/25 Previous Rx's ?Medication ?Instructions ?Recorded indomethacin 25 mg capsule 25 mg PO TID #12 caps 06/08/25 Allergies Allergy/AdvReac Type Severity Reaction Status Date / Time hornet venom Allergy Severe Anaphylaxis Verified 09/04/25 15:28 latex Allergy RASH Verified 09/04/25 15:28 adhesive tape AdvReac Skin Rash Verified 09/04/25 15:28 General Stated Complaint: [facility]Medical JOSE JUAN: 3 Review of Systems All systems reviewed & are unremarkable except as noted in HPI and below Constitutional Constitutional: Denies chills, Denies fever(s), Reports headache(s) and Denies weakness ENT Ears, Nose, Mouth, and Throat: Reports headache(s) Cardiovascular Cardiovascular: Reports chest pain and Denies dyspnea Respiratory Respiratory: Denies cough and Denies dyspnea Gastrointestinal Gastrointestinal: Denies abdominal pain, Denies nausea and Denies vomiting Musculoskeletal Musculoskeletal: Denies joint swelling Neurologic Neurologic: Reports headache(s) and Denies weakness Exam Const General: no acute distress Orientation: alert HENMT Head: normal to inspection Ears: external ears normal General nose exam: external nose normal Mouth: moist mucous membranes Eyes General: appearance normal, both eyes and all related structures Neck Neck: normal visual inspection Resp Effort & Inspection: normal respiratory effort and able to speak in complete sentences Auscultation: clear to auscultation bilaterally Cardio Jugular venous pressure: no JVD Rate: regular rate Heart Sounds: no murmurs Skin General skin exam: no rashes or lesions noted Neuro General: patient alert and patient oriented x3 Extrem General: normal to inspection Psych Mental Status: mental status grossly normal Course Vital Signs Vital signs: Vital Signs Pulse 79 09/04/25 15:24 Respiratory Rate 16 09/04/25 15:24 Blood Pressure 138/64 09/04/25 15:24 Pulse Oximetry 98 09/04/25 15:24 Temperature Source Oral 09/04/25 15:38 Pulse 79 09/04/25 15:38 Respiratory Rate 16 09/04/25 15:38 Blood Pressure 138/64 09/04/25 15:38 Blood Pressure Position Sitting 09/04/25 15:38 Pulse Oximetry 98 09/04/25 15:38 Oxygen Delivery Method Room Air 09/04/25 15:38 Oxygen Flow Rate 0 09/04/25 15:38 Pain Level 3 09/04/25 15:38 Medical Decision Making 80-year-old female with a history of hypertension comes in with complaints of elevated blood pressures today in the headache that started 2 hours ago. She says that slowly worsened and is not the worst of life and also has chest tightness. She says she feels anxious about her blood pressure being high. She says it was 180 systolic at home. Here it is 138/64. Denies any vomiting, diaphoresis, falls, weakness. She is oriented x 4 on arrival with the steady gait. She is clear lung sounds, no leg swelling or calf tenderness. She moves all extremities well without any drift. Cranial nerves II through XII are intact. Given her complaints I am can obtain a CT head given her headache though my suspicion for hemorrhage is low. She has no meningismus and denies any fever so I doubt meningitis. Will also check CBC CMP and troponins. She has no tachycardia or hypoxia or evidence of DVT on exam so I doubt PE. She is no tearing back pain to suggest dissection. Patient's blood pressures have been reassuring since being here. Patient has a mild white count 13 but appears to have chronic elevations in her white count. Delta troponin is negative. CT head without hemorrhage or acute emergent findings, x-ray also unremarkable. She is stable and asymptomatic. Given reassuring workup with normal blood pressures here feel she is stable for discharge and can follow-up with her PCP, return precautions given. Differential Diagnosis Differential Diagnosis: acs, htn, tension headache Medical Records Medical records reviewed: Yes I reviewed the patient's medical records. Lab Data Lab results reviewed: Yes I reviewed the patient's lab results. ECG Data Attestation: I personally reviewed and interpreted this ECG (s) as follows: Prior ECG tracings: available for review Interpretation: sinus rate of 72 no stemi PFSH All Active Problems (Updated 09/04/25 @ 18:49 by Buck Porter MD) Chest pain (Acute) Headache (Acute) Hypertension (Chronic) Fatigue (Acute) Change in voice (Acute) Rotator cuff tear, right (Acute) Arthritis of right glenohumeral joint (Acute) Arthropathy of left shoulder (Acute) Left shoulder pain (Acute) Leukocytosis (Acute) Medical History (Updated 09/04/25 @ 18:49 by Buck Porter MD) Pain in buttock Nodule of right lung Left knee pain Depressive disorder Abnormal CT scan, chest Change in skin mole Bilateral carotid artery stenosis Aortic valve stenosis, nonrheumatic Aneurysm Abnormal radiograph Chronic GERD Depression Tubular adenoma of colon (~11/06/22) Abdominal bloating Chronic nausea Overweight Family history of colon cancer Rheumatoid arthritis Nicotine dependence Motion sickness Low back pain [place] lesion of lung Aortic stenosis HTN (hypertension) Surgical History History of throat surgery cyst removed S/P AVR (aortic valve replacement) (~03/20/17) History of colonoscopy with polypectomy (~11/06/22) History of colonoscopy 08/26/2016 @[facility] 11/19/2009 @[facility] with polypectomies= Hyperplastic History of tonsillectomy Family History Mother Cancer Father Stroke Cancer Social History Smoking/Tobacco Use Status: Former Tobacco Use Quit Date: 09/14/22 Smoking risk assessment performed?: Yes Alcohol Intake: never Drug use: Never Substance use type: does not use Housing: house Do you feel safe at home: Yes Do you feel safe in your relationship?: Yes
[2025-09-04 16:39] LABS: Abs Immature Grans 0.05 10^3/uL (0.0-0.06); HCT 39.9 % (36.0-46.0); HGB 13.0 g/dL (11.2-15.7); Immature Grans % 0.4 %; MCH 29.4 pg (27.0-33.0); MCHC 32.6 % (32.0-36.0); MCV 90 fL (80-95); MPV 10.5 fL (8.0-11.0); Platelet Count 202 10^3/uL (130-400); RBC 4.42 10^6/uL (3.93-5.22); RDW 13.1 % (11.7-14.6); RDW-SD 43.1 fL; WBC 13.68 10^3/uL (4.4-10.8)
[2025-09-04 17:33] LABS: Magnesium 1.9 mg/dL (1.6-2.6)
[2025-09-04 17:34] LABS: Troponin I 5 ng/L (<35)
[2025-09-04 17:35] LABS: ALT 37 U/L (10-49); AST 37 U/L (<34); Albumin 4.2 g/dL (3.2-5.0); Alkaline Phosphatase 56 U/L (46-116); Anion Gap 8.5 mmol/L (3-11); BUN 29 mg/dL (9-23); Bilirubin, Total 0.4 mg/dL (0.2-1.2); CO2 25.5 mmol/L (20.0-31.0); Calcium 9.2 mg/dL (8.3-10.6); Chloride 107 mmol/L (98-107); Glucose 118 mg/dL (74-106); Potassium 4.7 mmol/L (3.5-5.1); Sodium 141 mmol/L (136-145); Total Protein 7.2 g/dL (5.7-8.2)
[2025-09-04 18:31] LABS: Troponin I 6 ng/L (<35)
== END 2025-09-04 18:58 | disposition home or self-care (01) ==
PROVIDERS: Emergency Provider Emergency Medicine; PCP Family Medicine
DX: R07.9 Chest pain, unspecified (principal); R51.9 Headache, unspecified; I10 Essential (primary) hypertension
CPT/HCPCS: 99284 ×2; 36415; 80053; 93005; 70450; 71046; 83735; 84484; 85025; 93010